=== PATIENT | male | born 1945 | race Caucasian/White ===

== ENCOUNTER 2024-03-16 16:53 | Inpatient (IN) | payer MEDICARE, SELFPAY ==
[2024-03-16] VITALS (35 sets, daily range): BP systolic 85–129; BP diastolic 34–92; BMI 31.9; BMI 31.0; BMI 31.1
[2024-03-16] MEDS: DUONEB 3 ML INH (12:25)
[2024-03-16 12:30] LABS: % Basophils 0.2 % (0-2); % Eosinophils 1.6 % (0-6); % Immature Granulocytes 0.6 % (0-0.5); % Lymphocytes 6.6 % (20.5-51.1); % Monocytes 5.7 % (1.7-9.3); % Neutrophils 85.3 % (42.2-75.2); Absolute Eosinophils 0.2 10^3/uL (0-0.7); Absolute Immature Granulocytes 0.1 10^3/uL (0-0.05); Absolute Lymphocytes 0.7 10^3/uL (1.2-3.4); Absolute Monocytes 0.6 10^3/uL (0.1-0.6); Absolute Neutrophils 9.5 10^3/uL (1.4-6.5); Hematocrit 41.7 % (39.0-52.0); Hemoglobin 12.6 g/dL (13.0-18.0); Mean Corp Hgb Conc. 30.2 g/dL (33.0-37.0); Mean Corpuscular Hgb 28.4 pg (27.0-31.0); Mean Corpuscular Volume 94.1 fL (80.0-94.0); Mean Platelet Volume 10.7 fL (7.4-10.4); Nucleated Red Blood Cells % 0 % (-); Platelet Count 215 10^3/uL (130-400); Red Blood Cell Count 4.43 10^6/uL (4.70-6.10); Red Cell Dist. Width 17.8 % (11.5-14.5); White Blood Cell Count 11.2 10^3/uL (4.8-10.8)
[2024-03-16 12:49] LABS: ALT (SGPT) 21 U/L (0-50); AST (SGOT) 26 U/L (17-59); Albumin 3.9 g/dl (3.5-5.0); Alkaline Phosphatase 153 U/L (38-126); Blood Urea Nitrogen 75 mg/dl (9-20); Calcium 8.6 mg/dl (8.4-10.2); Carbon Dioxide 17 mmol/L (22-30); Chloride 106 mmol/L (98-107); Estimated Creatinine Clearance 12 ml/min; Glucose 119 mg/dl (70-99); Potassium 5.4 mmol/L (3.5-5.1); Sodium 138 mmol/L (135-145); Total Bilirubin 1.3 mg/dl (0.2-1.3); Total Protein 7.2 g/dl (6.3-8.2)
[2024-03-16 12:56] LABS: COVID-19 Antigen Negative (Negative)
[2024-03-16] MEDS: VENTOLIN NEBULES 15 MG INH (13:04)
--- NOTE | 2024-03-16 13:22 | ED.GENMED ---
History of Present Illness
General
Chief Complaint: Change in Mental Status
Time Seen by Provider: 03/16/24 12:46
History of Present Illness
History of Present Illness:
Patient is a 78-year-old man with history of stage IV kidney cancer status post left nephrectomy, stage III prostate cancer, prior lung metastases that has been resolved currently not on chemotherapy followed by Todd Sims presenting to the emergency
department with altered mental status and shortness of breath. Patient's is an independent historian provides most of the history. She states that yesterday he had a fall. He did not hit his head or lose consciousness. Since then he has
been acting more confused. She states that he is intermittently confused. They also noticed that his heart rate was elevated to the 140s yesterday and resolved without any intervention. They called his primary care doctor who called back later
today telling him to come to the emergency department. She also notes that patient has been more short of breath with minimal activity. Patient does state that his shortness of breath has slightly improved after the nebulizer he initially
received. He denies any urinary changes chest pain Nausea vomiting or belly pain. He otherwise has no complaints though he is a poor historian.
Past History
Past History
ED Past Medical History: CAD, Cancer (Kidney ), CVA (X 3), HTN, Hypercholesterolemia, NIDDM, Hypothyroidism and Other ( BPH)
ED Past Surgical History: Cardiac (Stent) and Urological ( nephrectomy Left for cancer)
Social History
Tobacco: Former smoker
Alcohol: Occasional
Personal:
Living: with family
Family History
Family History: Negative Diabetes
Phy Exam
Physical Exam
Physical Exam:
GENERAL: in no acute distress
HEENT: normocephalic, no obvious head trauma, extraocular movements intact, moist oral mucosa
NECK: normal inspection
RESPIRATORY: Mild respiratory distress, diminished breath sounds bilaterally, expiratory wheezing
CARDIOVASCULAR: regular rate and rhythm
ABDOMEN/: soft, non-distended, non-tender to palpation, no rebound or guarding
EXTREMITIES: non-tender, 2+ pitting edema bilateral lower extremities
NEUROLOGIC: awake and alert oriented x 3, moves all extremities
SKIN: warm
Course
Orders/Labs/Results
Orders:
Orders
03/16/24 12:06
Electrocardiogram (*1) Urgent
Reason for Study: Shortness of Breath
03/16/24 12:07
EKG- Treatment ONCE
03/16/24 12:09
COVID-19 Antigen Urgent
Source: Nasal Swab
Complete Blood Count/With Diff Urgent
Comprehensive Metabolic Panel Urgent
Influenza A+B Rapid Molecular Urgent
RODRICK Source: Nasal Swab
Specimen Description:
03/16/24 12:22
Ipratropium/Albuterol Sulfate [Duoneb] 3 ml .ROUTE .STK-MED ONE
03/16/24 12:24
Ipratropium/Albuterol Sulfate [Duoneb] 3 ml INH R NOW ONE
03/16/24 12:58
Albuterol Sulfate [Ventolin Nebules] 15 mg INH R NOW STA
US Kidneys and US Bladder [US Renal With Bladder] Urgent
Comment:
Reason For Exam: acute renal failure
03/16/24 12:59
CT Head W/o Iv Contrast Urgent
Comment:
Reason For Exam: confusion
03/16/24 13:00
Add On- LAB Urgent
Tests Added?: trop, bnp
03/16/24 13:17
CT Chest W/o Iv Contrast Urgent
Comment:
Reason For Exam: hypoxia, r/o malignancy
NM Lung Scan Vent/perf Urgent
Comment:
Reason For Exam: r/o PE
03/16/24 13:27
CR Chest Portable - 1 View Urgent
Comment:
Reason For Exam: sob
Reason Study Needs to be Portable: Patient Unstable
03/16/24 13:57
NT-proBNP Routine
Troponin I Routine
03/16/24 14:57
Electrocardiogram (*1) Urgent
Reason for Study: Palpitations
EKG- Treatment ONCE
03/16/24 15:16
Urinalysis Reflex To Culture Urgent
Date Specimen was Collected: 03/16/24
Time Specimen was Collected: 15:18
03/16/24 17:00
Troponin I Routine
Abnormal Lab Results
03/16/24 03/16/24
12:09 13:57
WBC 11.2 H 10^3/uL
(4.8-10.8)
RBC 4.43 L 10^6/uL
(4.70-6.10)
Hgb 12.6 L g/dL
(13.0-18.0)
MCV 94.1 H fL
(80.0-94.0)
MCHC 30.2 L g/dL
(33.0-37.0)
RDW 17.8 H %
(11.5-14.5)
MPV 10.7 H fL
(7.4-10.4)
Abs Immat Gran (auto) 0.1 H 10^3/uL
(0-0.05)
Absolute Neuts (auto) 9.5 H 10^3/uL
(1.4-6.5)
Absolute Lymphs (auto) 0.7 L 10^3/uL
(1.2-3.4)
Immature Gran % 0.6 H %
(0-0.5)
Neutrophils % 85.3 H %
(42.2-75.2)
Lymphocytes % 6.6 L %
(20.5-51.1)
Potassium 5.4 H mmol/L
(3.5-5.1)
Carbon Dioxide 17 L mmol/L
(22-30)
BUN 75 H mg/dl
(9-20)
Creatinine 5.0 H* mg/dL
(0.7-1.3)
Glucose 119 H mg/dl
(70-99)
Alkaline Phosphatase 153 H U/L
(38-126)
Troponin I 2.060 H* ng/ml
03/16/24 12:09
03/16/24 12:09
Vital Signs
Initial and Last Documented VS:
Initial Vital Signs
Pulse Ox
93
03/16/24 11:58
Last Documented Vital Signs
Temp Pulse Resp BP Pulse Ox
97.5 F 73 22 120/72 97
03/16/24 12:18 03/16/24 12:45 03/16/24 12:45 03/16/24 12:00 03/16/24 12:45
MDM/Problems Addressed
Differential Diagnosis Includes:
Patient is a 78-year-old male with history of kidney cancer status post nephrectomy, prostate cancer, prior lung metastases who is currently not on chemotherapy presenting to the emergency department with confusion and shortness of breath. Vitals
are notable for oxygen of 90% requiring nasal cannula. His heart rate is in the 70s. During my evaluation patient is in mild respiratory distress with diminished breath sounds and wheezing in all lung singh. He does have 2+ pitting edema.
Concern for worsening malignancy versus PE versus new onset kidney failure. Will check blood work including troponin, BNP. Will obtain CT chest and head. EKG per my interpretation normal sinus rhythm with right bundle branch block.
*Critical Care Note
Total Time (30-74mins, 75-104mins- exclusive of procedures): 31
comment:
Critical care statement: A total of 31 minutes of critical care time was provided for this patient. This includes management of unstable vital signs, evaluation of the patient at bedside, reviewing the patient's pertinent medical records, ordering
and reviewing studies, arranging urgent treatment with development of a management plan, evaluating patient's response to treatment, frequent reassessment, and discussion with consultants. This time was separate from time utilized to perform the
aforementioned documented procedures.
Update Note
Update Note:
Received critical on patient's blood work. He is in acute renal failure with elevated BUN. The uremia could explain the altered mental status as well. Will obtain CT chest without contrast as well as a VQ scan to evaluate for malignancy and PE.
Will obtain renal ultrasound.
Patient's troponin and BNP is also elevated. Will obtain delta troponin. Likely type II elevation. EKG does appear nonischemic per my interpretation
Patient did have a run of A-fib with RVR with heart rates anywhere from the 130s to 150s. It did self resolve. He did have blood pressures in the 90s when he was in A-fib with RVR. On reevaluation patient remains slightly tachypneic. Breath
sounds have improved. Chest x-ray per my interpretation with significant right-sided pleural effusion. Will trial BiPAP shortly.
On reevaluation patient blood pressure has been improving since the episode of A-fib with RVR. I discussed with hospitalist who accepted patient to their service.
ED Attending Note
-
Portions of this chart may have been created with voice recognition software.� Occasional wrong word or��sound alike� substitutions may have occurred due to the inherent limitations of voice recognition software.
Discharge Plan
Departure
Patient Disposition: Admit
Date of Disposition: 03/16/24
Time of Disposition: 15:21
Presentation/result/management discussed w/ accepting MD/DO: Hospitalist
Discharge Problem:
Altered mental status, Pleural effusion, Atrial fibrillation
Prescriptions:
No Action
pioglitazone [Actos] 15 mg Tablet
15 mg PO DAILY
atorvastatin 40 mg Tablet
40 mg PO QPM
amlodipine 5 mg Tablet
5 mg PO DAILY
aspirin 81 mg Tablet,Delayed Release (Dr/Ec)
81 mg PO QPM
levothyroxine [Synthroid] 100 mcg Tablet
100 mcg PO DAILY
tamsulosin [Flomax] 0.4 mg Capsule
0.4 mg PO DAILY
lisinopril 40 mg Tablet
40 mg PO DAILY
calcitriol 0.25 mcg Capsule
0.25 mcg PO DAILY
cholecalciferol (vitamin D3) [Vitamin D3] 25 mcg (1,000 unit) Tablet
25 mcg PO DAILY
naproxen sodium [Aleve] 220 mg Tablet
440 mg PO BIDPRN PRN (Reason: mild pain)
metoprolol tartrate 50 mg Tablet
50 mg PO BID
finasteride 5 mg Tablet
5 mg PO DAILY
repaglinide 1 mg Tablet
2 mg PO TID
cholecalciferol (vitamin D3) [Vitamin D3] 25 mcg (1,000 unit) Tablet
50 mcg PO QPM
Referrals:
Maurisio Lizama DO [Family Provider] -
Interventions
Interventions:
*Risk Screen - Suicide Last Done: 03/16/24 11:59
*General Assessment Last Done: 03/16/24 11:59
*Neglect/Abuse Screening Last Done: 03/16/24 11:59
ED- Neurological Assessment Last Done: 03/16/24 12:49
ED Swallowing Screen Last Done: 03/16/24 14:27
Discharge Date and Time
Print Language: ALBANIAN
[2024-03-16 14:36] LABS: NT-proBNP > 27000 pg/ml
--- NOTE | 2024-03-16 16:08 | HPS.HSE ---
Addendum entered and electronically signed by Renetta Eisenberg MD 03/16/24 18:31:
I personally performed a history and physical exam of the patient and discussed management with the resident. I reviewed the resident's note and agree with the documented findings and plan of care HPI/CC except for changes in my documentation
See separate update note from same day
Original Note:
Family Physician
-
Family Physician: Maurisio Lizama, DO
Chief Complaint
-
Change in mental status
History of Present Illness
History obtained from patient and his .
78-year-old male with history of stage IV renal cancer s/p nephrectomy, stage III prostate cancer s/p radiation therapy, history of previous mets in the lung which reportedly resolved- followed by Todd Sims, 3 CVA currently not on anticoagulation
given history of recurrent falls, hypertension, hypercholesterolemia, diabetes type 2, hypothyroidism, BPH, CAD s/p cardiac stent presented with altered mental status and shortness of breath for 1 day. Patient's reports that he had a fall at
home yesterday, did not hit his head or lose consciousness however she believes he has been intermittently confused since the fall. She also reports that his heart rate was in 140s for short period of time yesterday but it resolved without any
intervention. She also notes that patient has been more short of breath with minimal activity. He denies any urinary changes, chest pain, Nausea, vomiting or abdominal pain. Denies any recent changes in medication.
Medical History
Past Medical History
Past Medical History: Reports CAD, Cancer (Stage IV renal, stage III prostate), CVA (X3), HTN, Hypothyroidism, NIDDM and Other (BPH)
Past Surgical History: Reports Cardiac (Stent) and Urological (Right nephrectomy)
Social History
Tobacco: Former Smoker
Alcohol: Occasional
Drug: None
Personal:
Living: With Family
Family History
Family History: Not pertinent
Allergies / Home Medications
Allergies reflects when Allergies were last updated in [facility].
Home Medications with original date entered in [facility]
Allergy/Medication List:
Allergies
Allergy/AdvReac Type Severity Reaction Status Date / Time
No Known Allergies Allergy Verified 04/10/23 00:02
Home Medications
amlodipine 5 mg tablet 5 mg PO DAILY 04/10/23
aspirin 81 mg tablet,delayed release 81 mg PO QPM 04/10/23
atorvastatin 40 mg tablet 40 mg PO QPM 04/10/23
calcitriol 0.25 mcg capsule 0.25 mcg PO DAILY 04/10/23
cholecalciferol (vitamin D3) 25 mcg (1,000 unit) tablet (Vitamin D3) 25 mcg PO DAILY 04/10/23
levothyroxine 100 mcg tablet (Synthroid) 100 mcg PO DAILY 04/10/23
lisinopril 40 mg tablet 40 mg PO DAILY 04/10/23
pioglitazone 15 mg tablet (Actos) 15 mg PO DAILY 04/10/23
tamsulosin 0.4 mg capsule (Flomax) 0.4 mg PO DAILY 04/10/23
cholecalciferol (vitamin D3) 25 mcg (1,000 unit) tablet (Vitamin D3) 50 mcg PO QPM 03/16/24
finasteride 5 mg tablet 5 mg PO DAILY 03/16/24
metoprolol tartrate 50 mg tablet 50 mg PO BID 03/16/24
naproxen sodium 220 mg tablet (Aleve) 440 mg PO BIDPRN PRN mild pain 03/16/24
repaglinide 1 mg tablet 2 mg PO TID 03/16/24
Review of Systems
-
History Source: Patient and Family
Constitutional: Reports Weight Gain; Denies Fever
Respiratory: Reports Cough and Trouble Breathing
Cardiac: Denies Chest Pain
: Denies Dysuria
Neurological: Reports Weakness (Chronic Left sided s/p cva); Denies Headache
Psych: Reports Calm
Physical Exam
Vital Signs
Vital Signs
Temp Pulse Resp BP Pulse Ox
97.5 F 73 22 120/72 97
03/16/24 12:18 03/16/24 12:45 03/16/24 12:45 03/16/24 12:00 03/16/24 12:45
Physical Exam
General: Well Developed, No Apparent Distress and Obese
HEENT: NormoCephalic
Respiratory: Decreased Breath Sounds
Cardiac: Tachycardia
GI: Soft, Non Tender and Non Distended
Skin: Warm and Dry
Neuro: Awake and Alert
Psych: Calm
Laboratory Results
-
03/16/24 12:09
03/16/24 12:09
Laboratory Results
Total Bilirubin 1.3 mg/dl (0.2-1.3) 03/16/24 12:09
AST 26 U/L (17-59) 03/16/24 12:09
ALT 21 U/L (0-50) 03/16/24 12:09
Alkaline Phosphatase 153 U/L (38-126) H 03/16/24 12:09
Troponin I 2.060 ng/ml H* 03/16/24 13:57
Data Reviewed
-
Diagnostic Radiology: Report Reviewed by me
CT Scan: Report Reviewed by me
Lab Data: Labs Reviewed by me, Discussed with Physician, Discussed with Patient and Discussed with Family
Impression/Plan
-
78-year-old male with history of stage IV renal cancer s/p right nephrectomy, stage III prostate cancer s/p radiation therapy, history of previous mets in the lung which reportedly resolved- followed by Todd Sims, 3 CVA currently not on
anticoagulation given history of recurrent falls, hypertension, hypercholesterolemia, diabetes type 2, hypothyroidism, BPH, CAD s/p cardiac stent presented with altered mental status and shortness of breath.
#Altered mental status
# DESTINEE on CKD stage IV with hyperkalemia
CT head: IMPRESSION:
No acute intracranial abnormalities.
Old lacunar infarct again suggested in the right internal capsule.
-Creatinine 5.0 (reviewed lab work from January 2024 on the phone creatinine 2.98)
-Nephro consulted(per patient was informed by outpatient cook fish and chips he might need dialysis)
- Volume overloaded on exam
-VQ scan
-1 dose of Iv lasix 80mg.
#SOB
-CtT chest:
IMPRESSION:
Moderate right pleural effusion with right lower lobe 'consolidation' with air bronchograms. Findings could represent atelectasis and/or pneumonia. Right lower lobe mass cannot be excluded.
Small left pleural effusion with accompanying left lower lobe subsegmental atelectasis.
Coronary artery calcifications.
No pneumothorax.
- IR for pleural tap
- fluid studeis ordered
# HFrEF
Trops elevated
# a fib
-denies chest pain
-proBNP >15926
-Cardio consulted
-Echo ordered
- refused heparin drip; will wait for 2nd set of trops
- daily weight
# Essential hypertension
-Continue amlodipine 5 mg
-Continue metoprolol
-Hold lisinopril
# History of CVA
-Continue ASA
# Esd-ppolcyr-nemvgpcma diabetes mellitus
-Continue home repaglinide
-Continue home pioglitazone
# BPH
-Continue home tamsulosin
-Continue home finasteride
#Chronic anemia
#Stage IV right renal cancer-s/p nephrectomy
#Stage III prostate cancer-status post radiation therapy
#Hypercholesterolemia-continue atorvastatin
#Hypothyroidism-continue levothyroxine
DVT proph:SCD
code: DNR
--- NOTE | 2024-03-16 16:28 | W.PN.UPDATE ---
Update Note
Progress Note Update
I personally performed a history and physical exam of the patient and discussed management with the resident. I reviewed the resident's note and agree with the documented findings and plan of care HPI/CC except for changes in my documentation
78-year-old with mental status change. Intermittently confused heart rate was elevated yesterday called PCP who asked him to go to the hospital. Patient also had a fall out of bed stated that he landed on the right shoulder area did not hit his
head. He denies any chest pain or shortness of breath. also noted that his heart rate was high at home. He follows with a etl tester who retired. He was told that in the past that he needs dialysis but patient has been postponing it until
now.
CT of the chest without contrast-moderate right pleural effusion with consolidation of the right lower lobe with air bronchograms atelectasis/pneumonia. Mass cannot be excluded. Small left effusion. Coronary artery calcification
CT of the head-old lacunar infarct in the right internal capsule
VQ scan-low probability for PE
EKG reviewed by me-sinus rhythm with PACs. Left axis deviation. Right bundle branch block.
Awake alert oriented
Cardiovascular system S1-S2 tachycardic irregular
Chest decreased breath sounds bilateral bases right more than left
Abdomen midline scar transfers-noted
Nontender normal valve sounds
Bilateral pedal edema
Left [place]عر[place] with abrasion patient attributes to recent fall
Neuro exam mildly weaker left side-chronic
# Acute hypoxic respiratory insufficiency
Likely secondary to heart failure, pleural effusion.
VQ scan negative for PE
Pleural arisnwlr-yatjs-gtsuk
Likely has acute HFrEF-proBNP 27,000
Echo not the best quality with tachycardia EF 35%
Lasix 80 mg IV x 1 now and follow creatinine tomorrow
Follow daily weights intake output charting with following
# TME likely secondary to above. Patient seems stable at present awake alert and oriented.
# Elevated troponin-trend. Non-STEMI versus nonischemic myocardial injury. Trend troponin. I recommended to start heparin drip however reluctant as he has a history of hemorrhagic CVA in the past but that was all associated with biological
agent for his renal cell carcinoma.
# Tachycardia-atrial fibrillation versus sinus tachycardia versus SVT rates up, too fast. 1 dose of IV Cardizem
Continue metoprolol 50 twice daily
# Acute kidney injury with a creatinine of 5.0-unclear if cardiorenal versus progression of the disease. Hyperkalemia and metabolic acidosis
Stage IV CKD
Acute kidney injury could be secondary to cardiorenal state, use of NSAIDs. In the setting of CYNDY inhibitors also.
Hyperkalemia. Follow potassium with Lasix
Check urinalysis and urine sodium.
Heard catheter placement
Follow creatinine with 1 dose of Lasix
Last creatinine at [facility] was from June 2022 it was 2.34
Stop Aleve
Hold lisinopril
Continue calcitriol
Nephrology evaluation
# Right pleural effusion. Thoracentesis with fluid studies and cytology to rule out malignant pleural effusion given history of metastatic renal cell carcinoma
# Coronary artery disease with coronary artery calcification
Kavitha Navas Malinda -Last seen 02/29/24
CAD Lext Cx stent 2019 Severe diffuse LAD ds not amenable to RV
Asymptomatic BF Block
History of non-STEMI followed by nephrectomy
ECHO 2019- EF was 60 %.
Cath 2019 - ?
Continue aspirin, statin and beta-tristian. Hold lisinopril as above
# History of NSVT
# History of CVA-hemorrhagic strokes while on biologic agents for renal cell carcinoma treated at [facility].
# Hypertension-continue beta-blockers. Hold amlodipine and lisinopril
# Hyperlipidemia-continue atorvastatin
# Diabetes-hold Actos. Continue Prandin for now. Accu-Cheks and sliding scale coverage
# Hypothyroidism-continue Synthroid
# He has a H/O Met RCC diagnosed in 2012. Underwent right nephrectomy, adrenalectomy and liver resection November 2012. He was on Votrient 800 mg from dec 2012 to September 2013 Was stopped due to Acute hemorrhagic CVA.Then he was on Everolimus for
hepatic mets, Then Nivolumab in September 2014 stopped 2016 due to disease progression. Tasocitinib from September 2015 to September 2016. September had another hemorrhagic CVA. He also then got radiation to the liver metastasis in April 2017 till May 2017. He
also had more radiation in September 2017. Now being observed. Follows with Dr. Schwartz
# Stage II adenocarcinoma of the prostate with radiation September 2022 and 6 months of androgen deprivation therapy with Lupron which ended in October 2022. Continue finasteride, Flomax, Follows with Dr. Schwartz
# Ambulatory dysfunction-uses a walker and electric scooter outside the home
# Ex-smoker
# CODE STATUS addressed with patient and . deferred to patient. He wants to be DNR.
Spoke to [facility] Rubi Yee - [phone]. Got information about malignancy. Updated on patient's current condition.
Discussed with cardiology
Discussed with simulation technician
Discussed with patient's
Unfortunately all his treatments were at [facility] including a stroke treatment. Unclear where his etl tester was. His medical lab director is from [facility]. His oncologist is from [facility]. I reviewed with the patient's that it
is difficult to get all the information together at this point. She will try and bring her iPad and log into the portal tomorrow. I did talk to the fellow on-call at [facility] to get some information.
Time spent for admission 80 minutes
Part of this note was created using voice recognition system. Occasional wrong word or��sound alike� substitutions may have inadvertently occurred due to the inherent limitations of voice recognition software. If noted kindly bring it to my
attention for correction.
--- NOTE | 2024-03-16 16:49 | W.PN.UPDATE ---
Update Note
Progress Note Update
Patient not present in the ER room since 3:45 PM, when I checked back at 4:15 PM patient was not back, patient still not back last checked at 4:45 PM.
--- NOTE | 2024-03-16 17:04 | CON.CAR ---
Addendum entered and electronically signed by Rustam Mace MD 03/16/24 18:50:
78 yo male with PMH of CAD, prior Lcx stent, unable to PCI LAD, unknown EF, RCC s/p nephrectomy, CKD4. Presented to ED with altered mental status, brought in by . No chest pain. Denies SOB, but visibly appears to have increased WOB. Exam
with RRR, no murmurs, 2+ LE edema. Cr 5.0, K 5.4, TnI 2.0. EKG : no acute ischemic changes. Tele shows paroxysmal SVT, may be A flutter. Echo shows EF 30%, mild/mod MR and TR.
Acute systolic HF. High risk situation with acute renal failure. Will attempt diuresis. He may need HD/UF this admission. GDMT will be limited by renal function. Change metoprolol to succinate.
Paroxysmal SVT, with aberrancy. May be atrial flutter. Trend tele. Beta tristian. Heparin drip for now.
Elevated troponin. Suspect Type II OH in setting of atrial arrhythmias and known unrevascularized LAD. Trend troponin. Monitor for CP.
Original Note:
Consultation
Consultation Request
Date/Time Consultation Requested: 03/16/2024 16:30
Date/Time Consultation Performed: 03/16/2024 17:05
Requesting Provider: Dr. Cali Redding
Performing Provider: JUAN Gonzalez for Dr. Carcamo
Reason for Consultation: Abnormal troponin
Medical History
-
Chief Complaint: Change in mental status
History of Present Illness:
Gerson Forbes is a 78-year-old male (known to Dr. Petty at [facility]) with coronary artery disease (LCx PCI with LAD disease unamenable to PCI), hypertension, dyslipidemia, RCC status post nephrectomy, chronic kidney disease, prostate
cancer, multiple hemorrhagic strokes (attributed to chemotherapy while being treated for RCC), hypothyroidism, and former smoker presented to the emergency department with a chief complaint of change in mental status. He also endorses shortness of
breath. Per his , he sustained a fall yesterday. He did not hit his head or lose consciousness. However, since the fall he has been more confused. He does not feel confused. His reported he looked more short of breath. He denies
shortness of breath on exam. He denies chest pain.
Past Medical History
Past Medical History: CAD, Cancer (RCC, prostate), CVA, HTN, Hypercholesterolemia, Hypothyroidism, NIDDM and Renal Failure (Chronic)
Past Surgical History: Urological (Nephrectomy)
Social History
Tobacco: Former Smoker
Personal:
Living: With Family
Employment: Retired
Family History
Family History: Reviewed & Not Pertinent
Allergies / Home Medications
Allergy/AdvReac Type Severity Reaction Status Date / Time
No Known Allergies Allergy Verified 04/10/23 00:02
�Medication �Instructions �Recorded �Confirmed �Type
amlodipine 5 mg tablet 5 mg PO DAILY 04/10/23 03/16/24 History
aspirin 81 mg tablet,delayed 81 mg PO QPM 04/10/23 03/16/24 History
release
atorvastatin 40 mg tablet 40 mg PO QPM 04/10/23 03/16/24 History
calcitriol 0.25 mcg capsule 0.25 mcg PO DAILY 04/10/23 03/16/24 History
cholecalciferol (vitamin D3) 25 25 mcg PO DAILY 04/10/23 03/16/24 History
mcg (1,000 unit) tablet (Vitamin
D3)
levothyroxine 100 mcg tablet 100 mcg PO DAILY 04/10/23 03/16/24 History
(Synthroid)
lisinopril 40 mg tablet 40 mg PO DAILY 04/10/23 03/16/24 History
pioglitazone 15 mg tablet (Actos) 15 mg PO DAILY 04/10/23 03/16/24 History
tamsulosin 0.4 mg capsule (Flomax) 0.4 mg PO DAILY 04/10/23 03/16/24 History
cholecalciferol (vitamin D3) 25 50 mcg PO QPM 03/16/24 03/16/24 History
mcg (1,000 unit) tablet (Vitamin
D3)
finasteride 5 mg tablet 5 mg PO DAILY 03/16/24 03/16/24 History
metoprolol tartrate 50 mg tablet 50 mg PO BID 03/16/24 03/16/24 History
naproxen sodium 220 mg tablet 440 mg PO BIDPRN PRN mild pain 03/16/24 03/16/24 History
(Aleve)
repaglinide 1 mg tablet 2 mg PO TID 03/16/24 03/16/24 History
Review of Systems
-
History Source: Patient
All other systems: Negative unless noted
Constitutional: No Symptoms
EENT: No Symptoms
Respiratory: No Symptoms
Cardiac: No Symptoms
Abdomen/GI: No Symptoms
: No Symptoms
Musculoskeletal: No Symptoms
Skin: No Symptoms
Neurological: No Symptoms
Endocrine: No Symptoms
Hematologic/Lymphatic: No Symptoms
Physical Exam
Vital Signs
Temp Pulse Resp BP Pulse Ox
97.5 F 73 22 120/72 97
03/16/24 12:18 03/16/24 12:45 03/16/24 12:45 03/16/24 12:00 03/16/24 12:45
Lab Results
03/16/24 12:09
03/16/24 12:09
Troponin I 2.060 ng/ml H* 03/16/24 13:57
Qfs-B-Moecnsmbvqc Pept > 56288 pg/ml 03/16/24 13:57
Physical Exam
General: Well Developed
HEENT: Normocephalic, Anicteric and Moist Mucous Membranes
Respiratory: Crackles and Non Labored Respirations
Cardiac: S1/S2, Regular Rhythm and Peripheral Edema
Breast: Deferred by me
GI: Soft, Non Tender, Non Distended and Normal Bowel Sounds
Rectal: Deferred by Provider
Musculoskeletal: No Clubbing and No Cyanosis
Skin: Warm and Dry
Neuro: AO x 3
Hematologic/Lymphatic: No Lymphadenopathy
Psych: Calm
Impression / Plan
-
IMPRESSION/PLAN: 78M with coronary artery disease (LCx PCI with LAD disease unamenable to PCI), hypertension, dyslipidemia, RCC status post nephrectomy, chronic kidney disease, prostate cancer, multiple hemorrhagic strokes (attributed to
chemotherapy while being treated for RCC), hypothyroidism, and former smoker presented to the emergency department with a chief complaint of a fall.
Outpatient sales representative business courses: Dr. Petty at
Shortness of breath, likely in the setting of acute heart failure
-Volume overloaded on exam
-V/Q: Low probability
-Lower extremity ultrasound pending
HFrEF (EF ~35%, formal read pending), acute
-Outpatient cardiology notes does not have any documented recent LVEF
-Diuresis, start with furosemide 80 mg IV x 1 now, this requires intensive monitoring
-He may need either a furosemide or bumetanide drip, this will be under the direction of nephrology given his DESTINEE
-GDMT is limited with his DESTINEE
-Trend daily weight, I/O, and BMP with diuresis
-Heart failure education
Abnormal troponin, likely Type II OH
-Chest pain-free
-Initial troponin 2.060, trend
-Start heparin, continue ASA
SVT with aberrancy
-Follow telemetry
-Transition to metoprolol succinate 50 mg twice daily given HFrEF
CAD
-PCIs: LCx 2018 with severe diffuse LAD disease not amenable to revascularization
-He had an NSTEMI, type II OH, following his radical nephrectomy
-Continue ASA
DESTINEE on CKD
-Per outpatient biochemist, baseline creatinine about 3, currently 5.0
-Follows with Dr. Naa Castillo
-Nephrology consulted by primary service
RBBB, LAFB, chronic
NSVT, per outpatient cardiology note, follow telemetry
HLD, on atorvastatin
RCC status post nephrectomy (right) with metastasis to right adrenal, left adrenal, and right lung - managed by [facility]
Prostate cancer status post XRT
CVA, hemorrhagic, possibly related to Pazopanib during chemotherapy (2013)
NIDDM with retinopathy and proteinuria, diabetes managed by Dr. Camacho
Hypothyroidism on levothyroxine
Former smoker, continue cessation recommended
Data Reviewed
-
EKG: Report Reviewed by me (Sinus rhythm, RBBB, rate 69)
Labs: Labs Reviewed by me
Old Records: Reviewed
[2024-03-16] MEDS: CARDIZEM 5 MG IV (18:05)
[2024-03-16] MEDS: LASIX 80 MG IV (18:06)
[2024-03-16] MEDS: LOPRESSOR 2.5 MG IV ×2 (18:45→21:32)
[2024-03-16 21:30] LABS: Glucose - Point of Care 146 mg/dl (70-99)
[2024-03-16] MEDS: LOPRESSOR 50 MG PO (21:39)
[2024-03-16] MEDS: ASPIR LOW (ENTERIC COATED) 81 MG PO (21:39)
[2024-03-16] MEDS: LIPITOR 40 MG PO (21:39)
[2024-03-16 22:10] LABS: LDH 303 U/L (120-246)
[2024-03-16] MEDS: ATIVAN 0.25 MG IV (23:13)
[2024-03-16] MEDS: NSS (PRESERVATIVE FREE) 0.125 ML IV (23:19)
--- NOTE | 2024-03-16 23:22 | PTCARENOTE ---
Addendum entered by Radha Jeong RN 03/17/24 00:46:
admission questions completed to pt's best ability, as pt. is AOx2 to self and place at the moment, not time
Original Note:
Pt. received from ED. Pt. AOx2, to self and place. When asked what year it is he said '1924'. Pt. arriving on tele showing sinus tachycardia in the 130s. Pt. asymptomatic. BP low 80s-100/50s-60s. No complaints of pain at this time. This RN and
another RN attempted to place indwelling fraser per order, however pt. became agitated and aggressive towards staff. Attempt to place fraser was stopped, I reached out to House Provider CUSTOM VAN CONVERTER, ativan order placed by CUSTOM VAN CONVERTER. Ativan given to pt., 2nd attempt
on fraser placement post ativan administration. Call garcia within reach, bed alarm on. Continuing to monitor at this time.
--- NOTE | 2024-03-16 23:55 | PTCARENOTE ---
16fr indwelling fraser placed
[2024-03-17] VITALS (59 sets, daily range): BP systolic 77–134; BP diastolic 36–117
[2024-03-17 00:01] LABS: Urine Albumin 2+ (Neg - Trace); Urine Bilirubin Negative (Negative); Urine Character Slightly Cloudy (Clear); Urine Color Yellow; Urine Glucose Trace (Negative); Urine Ketone Negative (Negative); Urine Leukocyte Negative (Negative); Urine Nitrite Negative (Negative); Urine Occult Blood Negative (Negative); Urine Specific Gravity 1.025 (<1.030); Urine Urobilinogen Negative (Neg - 1+)
[2024-03-17 00:30] LABS: Urine Amorphous Seen; Urine Bacteria Many (Negative)
[2024-03-17 00:32] LABS: Urine Granular Cast 0-2 /LPF (0); Urine Mucus Moderate
[2024-03-17 00:43] LABS: Urine Sodium 29 mmol/L (30-90)
[2024-03-17] MEDS: LOPRESSOR 2.5 MG IV (01:06)
--- NOTE | 2024-03-17 03:42 | PTCARENOTE ---
Pt. HR sustaining in the 120s. 2.5mg lopressor given x2, per order. SBP dropping to 80s-90s after administration. House PAINT COATING MACHINE OPERATOR made aware, awaiting orders. Continuing to monitor at this time.
[2024-03-17 04:33] LABS: % Basophils 0.2 % (0-2); % Eosinophils 0.9 % (0-6); % Immature Granulocytes 0.4 % (0-0.5); % Lymphocytes 5.6 % (20.5-51.1); % Monocytes 5.2 % (1.7-9.3); % Neutrophils 87.7 % (42.2-75.2); Absolute Eosinophils 0.1 10^3/uL (0-0.7); Absolute Lymphocytes 0.6 10^3/uL (1.2-3.4); Absolute Monocytes 0.5 10^3/uL (0.1-0.6); Absolute Neutrophils 8.5 10^3/uL (1.4-6.5); Hematocrit 37.7 % (39.0-52.0); Hemoglobin 12.1 g/dL (13.0-18.0); Mean Corp Hgb Conc. 32.1 g/dL (33.0-37.0); Mean Corpuscular Hgb 28.9 pg (27.0-31.0); Nucleated Red Blood Cells % 0 % (-); Platelet Count 214 10^3/uL (130-400); Red Blood Cell Count 4.19 10^6/uL (4.70-6.10); Red Cell Dist. Width 17.6 % (11.5-14.5); White Blood Cell Count 9.7 10^3/uL (4.8-10.8)
[2024-03-17 04:56] LABS: ALT (SGPT) 20 U/L (0-50); AST (SGOT) 27 U/L (17-59); Albumin 3.4 g/dl (3.5-5.0); Alkaline Phosphatase 140 U/L (38-126); Blood Urea Nitrogen 81 mg/dl (9-20); Calcium 8.3 mg/dl (8.4-10.2); Carbon Dioxide 17 mmol/L (22-30); Chloride 106 mmol/L (98-107); Estimated Creatinine Clearance 12 ml/min; Glucose 121 mg/dl (70-99); Magnesium 2.6 mg/dl (1.6-2.3); Potassium 5.2 mmol/L (3.5-5.1); Sodium 138 mmol/L (135-145); Total Bilirubin 1.2 mg/dl (0.2-1.3); Total Protein 6.4 g/dl (6.3-8.2); eGFR 10.59
[2024-03-17] MEDS: SYNTHROID 100 MCG PO (05:54)
--- NOTE | 2024-03-17 07:39 | W.PN.HOSP.TC ---
Today's Communication/Plan
-
heparin drip
cardizem by cardio
lokelma
zosyn
Assessment / Plan
Assessment / Plan
78-year-old male with history of stage IV renal cancer s/p right nephrectomy, stage III prostate cancer s/p radiation therapy, history of previous mets in the lung which reportedly resolved- followed by [facility], 3 CVA currently not on
anticoagulation given history of recurrent falls, hypertension, hypercholesterolemia, diabetes type 2, hypothyroidism, BPH, CAD s/p cardiac stent presented with altered mental status and shortness of breath.
# DESTINEE on CKD stage IV with hyperkalemia and metabolic acidosis
CT head:No acute intracranial abnormalities,Old lacunar infarct again suggested in the right internal capsule.
-Creatinine 5.2 today (reviewed lab work from January 2024 on the phone creatinine 2.98)
-Nephro consulted(per patient was informed by outpatient automotive assembler he might need dialysis)
-Volume overloaded on exam
-VQ scan:-low probability for PE
-1 dose of Iv lasix 80mg on 03/16/24
-fraser placement
-hold aleve and lisinopril
-given more confusion today;repeat head ct- unremarkable
-1 dose of lokelma
# Acute hypoxic respiratory insufficiency, #SOB
Likely secondary to heart failure, pleural effusion.
-CT chest:Moderate right pleural effusion with right lower lobe 'consolidation' with air bronchograms. Findings could represent atelectasis and/or pneumonia. Right lower lobe mass cannot be excluded.
Small left pleural effusion with accompanying left lower lobe subsegmental atelectasis.
Coronary artery calcifications,No pneumothorax.
- IR for pleural tap
- fluid studies ordered; cytology to rule out malignant pleural effusion;history of metastatic RCC
repeat cxr: Opacification in the right mid to lower lung, possibly slightly increased with known right lower lobe consolidation and moderate right pleural effusion seen on Chest CT of preceding day.
Opacification in the left lung base without significant change likely correlating with small left pleural effusion with left lower lobe subsegmental atelectasis seen on CT.
# TME likely secondary to above
#Altered mental status
-consulted neuro
-started zosyn
-wrist restraints; anti psychotic not recommended with prolong qtc
# HFrEF
# a fib
#tachycardia
-denies chest pain
-proBNP >96172
- daily weight
-cardizem drip
#type 2 MD
trop elevated
continue asa, hold metoprolol
heparin drip started tp
# CAD
-s/p cardiac stenting
-continue asa, atorvastatin and metoprolol
# Essential hypertension
-hold amlodipine 5 mg
-Continue metoprolol
-Hold lisinopril
# History of CVA; while on biologic for RCC
-Continue ASA
# Asa-xicpzdf-ceqcbbtcf diabetes mellitus
-Continue home repaglinide(lower dose 1mg)
-hold home pioglitazone
-ssc
# BPH
-Continue home tamsulosin
-Continue home finasteride
#Chronic anemia
#Stage IV right renal cancer-s/p nephrectomy
#Stage III prostate cancer-status post radiation therapy
#Hypercholesterolemia-continue atorvastatin
#Hypothyroidism-continue levothyroxine
# Ambulatory dysfunction-uses a walker and electric scooter outside the home
DVT proph:SCD
code: DNR
Anticipated Discharge: > 48 hours
Subjective/Interval History
-
Date of Service: March 17, 2024
Confused
Objective Data
-
Labs:
Laboratory Results
03/17/24
04:14
WBC 9.7
Hgb 12.1 L
Hct 37.7 L
Plt Count 214
Sodium 138
Potassium 5.2 H
Chloride 106
Carbon Dioxide 17 L
BUN 81 H
Creatinine 5.2 H*
Glucose 121 H
Calcium 8.3 L
Total Bilirubin 1.2
AST 27
ALT 20
Alkaline Phosphatase 140 H
Vital Signs:
Vital Signs
Temp Pulse Resp BP Pulse Ox
98.7 F 130 25 88/59 99
03/16/24 22:57 03/17/24 06:31 03/16/24 21:00 03/17/24 06:31 03/16/24 22:57
I&O
03/16/24 03/17/24 03/18/24
06:59 06:59 06:59
Intake Total 100 / 100
Balance 100 / 100
Review of Systems
-
History Source: Patient (confused, denies any pain)
Physical Exam
-
General: Well Developed, Appears Chronically Ill and Obese
Respiratory: Wheezes and Decreased Breath Sounds
Cardiac: S1/S2 and Tachycardic
GI: Soft and Nontender
Skin: Warm and Dry
Neuro: Awake
Psych: Confused
Data Reviewed
-
CT Scan: Report Reviewed by me
Labs: Labs Reviewed by me, Discussed with Physician and Discussed with Patient
[2024-03-17] MEDS: ROCALTROL 0.25 MCG PO (07:55)
[2024-03-17] MEDS: FLOMAX 0.4 MG PO (07:55)
[2024-03-17] MEDS: PROSCAR 5 MG PO (07:55)
[2024-03-17] MEDS: VITAMIN D3 (cholecalciferol) 25 MCG PO (07:55)
[2024-03-17] MEDS: PRANDIN 1 MG PO (07:55)
[2024-03-17 07:56] LABS: Glucose - Point of Care 106 mg/dl (70-99)
--- NOTE | 2024-03-17 08:43 | W.PN.CD ---
Today's Communication / Plan
-
- Stop Metoprolol and start IV diltiazem
- High risk for thromboembolic events with AF/AFL and severe systolic dysfunction - start heparin
Impression / Plan
-
IMPRESSION/PLAN: 78M with coronary artery disease (LCx PCI with LAD disease unamenable to PCI), hypertension, dyslipidemia, RCC status post nephrectomy, chronic kidney disease, prostate cancer, multiple hemorrhagic strokes (attributed to
chemotherapy while being treated for RCC), hypothyroidism, and former smoker presented to the emergency department with a chief complaint of a fall.
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 Petty at
Altered mental status
- Noted to have right sided neglect and no movement on the right arm with normal response and movement on the left side - transient and resolved in few minutes while still in the room.
- Transient focal deficit - recovered back to baseline.
- Hx of strokes in the past. Discussed with his - has a hx of hemorrhagic strokes in
- Now head CT showed no bleeding
- In atrial flutter with RVR. Needs anticoagulation with high suspicion for AF. Discussed with and is in agreement to start Heparin.
Atrial flutter
- RVR since admission - 130s to 140s bpm
- IV metoprolol ineffective and caused hypotension
- Stop PO metoprolol and start IV diltiazem drip
- Given severe renal failure, not a candidate for Digoxin unless really needed - ok for a single dose - very long half life with renal failure .
Shortness of breath, likely in the setting of acute heart failure
-Volume overloaded on exam
-V/Q: Low probability
-Lower extremity ultrasound pending
HFrEF (EF 30%), acute
- ECHO 03/16/24 - LVEF 25-30%
- Could be related to sustained tachcyardia.
-Outpatient cardiology notes does not have any documented recent LVEF
-Diuresis, start with furosemide 80 mg IV x 1 now, this requires intensive monitoring
-He may need either a furosemide or bumetanide drip, this will be under the direction of nephrology given his DESTINEE
-GDMT is limited with his DESTINEE
-Trend daily weight, I/O, and BMP with diuresis
-Heart failure education
Abnormal troponin, likely Type II NH
-Chest pain-free
-Initial troponin 2.060, trend
-Start heparin, continue ASA
CAD
-PCIs: LCx 2018 with severe diffuse LAD disease not amenable to revascularization
-He had an NSTEMI, type II NH, following his radical nephrectomy
-Continue ASA
DESTINEE on CKD
-Per outpatient reed polisher, baseline creatinine about 3, currently 5.0
-Follows with Dr. Naa Castillo
-Nephrology consulted by primary service
RBBB, LAFB, chronic
NSVT, per outpatient cardiology note, follow telemetry
HLD, on atorvastatin
RCC status post nephrectomy (right) with metastasis to right adrenal, left adrenal, and right lung - managed by [facility]
Prostate cancer status post XRT
CVA, hemorrhagic, possibly related to Pazopanib during chemotherapy (2013)
NIDDM with retinopathy and proteinuria, diabetes managed by Dr. Camacho
Hypothyroidism on levothyroxine
Former smoker, continue cessation recommended
Physical Exam
Vital Signs/Labs
Vital Signs
Temp Pulse Resp BP Pulse Ox
97.9 F 131 20 89/77 97
03/17/24 07:00 03/17/24 07:00 03/17/24 07:00 03/17/24 07:30 03/17/24 07:00
03/16/24 03/17/24 03/18/24
06:59 06:59 06:59
Actual Weight 84.7 kg
03/17/24 04:14
APTT Cancelled 03/16/24 17:41
Magnesium 2.6 mg/dl (1.6-2.3) H 03/17/24 04:14
03/16/24
13:57
Xba-I-Bzlwfdjbkfl Pept > 30541
LAB Results
03/16/24 03/16/24 03/17/24
13:57 18:12 04:14
Troponin I 2.060 H* 2.830 H* D 4.730 H*
Physical Exam
Constitutional: Confusion
EENT: Anicteric
Cardiovascular: Rhythm & rate is regular, JVD present and Systolic murmur present
Respiratory: Respiratory effort normal and Crackles Present
GI: Soft, Non tender and Normal bowel sounds
Neuro/Psych: Alert and Other (fluctuating mental status)
Data Reviewed
-
Date of Service: March 17, 2024
Medical Decision Making: Reviewed Test Results
EKG: Tracing Personally Visualized and interpreted
Echo: Tracing Personally Visualized and interpreted
X-Ray/CT/US/MRI/NUC/PET: Report Reviewed by me
Medical Tests (PFT, Pathology etc): Discussed with Physician, Discussed with Patient and Discussed with Family
Labs: Labs Reviewed by me
Old Records: Reviewed
Critical Care Time (in minutes): 35
[2024-03-17] MEDS: LOPRESSOR PO (09:08)
[2024-03-17] MEDS: CARDIZEM 125 IV ×2 (09:10→19:02)
--- NOTE | 2024-03-17 09:21 | W.PN.UPDATE ---
Update Note
Progress Note Update
I personally performed a history and physical exam of the patient and discussed management with the resident. I saw and evaluated the patient. I reviewed the resident�s note and agree with findings and plan as documented in the resident�s note.
78-year-old with mental status change. Intermittently confused heart rate was elevated yesterday called PCP who asked him to go to the hospital. Patient also had a fall out of bed stated that he landed on the right shoulder area did not hit his
head. He denies any chest pain or shortness of breath. also noted that his heart rate was high at home. He follows with a dough mixing machine operator who retired. He was told that in the past that he needs dialysis but patient has been postponing it until
now.
CT of the chest without contrast-moderate right pleural effusion with consolidation of the right lower lobe with air bronchograms atelectasis/pneumonia. Mass cannot be excluded. Small left effusion. Coronary artery calcification
CT of the head-old lacunar infarct in the right internal capsule
VQ scan-low probability for PE
EKG reviewed by me-sinus rhythm with PACs. Left axis deviation. Right bundle branch block.
Echo 03/16/2024-moderately reduced LV systolic function. EF 30%. Global hypokinesis. Mild to moderate MR. Mild to moderate TR.
Seen and examined the patient .
Appears to have mild right-sided neglect.
Cardiovascular system S1-S2 tachycardic , sm at apex
decreased breath sound right base
Abdomen soft and nontender
Mild pedal edema
Rpt CT of the head-without contrast no acute changes
# Mild intermittent right-sided neglect. Patient is able to move but not clearly following directions
Then he picked up his Left arm with the right arm.
Unclear if this is encephalopathy causing worsening of his prior stroke symptoms
Neurology evaluation requested
Add neuro checks
# A-fib/flutter with 2-1 block
IV metoprolol is not effective
Metoprolol stopped and Cardizem drip started.
# Type II NM
Troponin going up
Continue aspirin. Hold beta-tristian as above. Continue statin.
Heparin drip started by cardiology after speaking to patient's -she was hesitant yesterday as patient has a history of hemorrhagic CVA with biologic agents from renal cell carcinoma several years ago
# Acute hypoxic respiratory insufficiency
Likely secondary to heart failure, pleural effusion.
VQ scan negative for PE
Pleural flxbepft-vywsu-kazcr
Likely has acute HFrEF-proBNP 27,000
Echo not the best quality with tachycardia EF 30%
Lasix 80 mg IV given in ER with out any benefit.
Follow daily weights intake output charting with following
# TME likely secondary to above and DESTINEE
# Acute kidney injury with a creatinine of 5.0 on admission
Unclear if cardiorenal versus progression of the disease. Hyperkalemia and metabolic acidosis
Stage IV CKD
Acute kidney injury could be secondary to cardiorenal state, use of NSAIDs. In the setting of CYNDY inhibitors also.
Hyperkalemia. Lokelma ordered
Check urinalysis and urine sodium.
Heard catheter
Creatinine elevated to 5.2 today
Last creatinine at [facility] was from June 2022 it was 2.34
Stopped Aleve
Hold lisinopril
Continue calcitriol
Nephrology evaluation
May need to initiate HD
# Right pleural effusion. Thoracentesis with fluid studies and cytology to rule out malignant pleural effusion given history of metastatic renal cell carcinoma
# Coronary artery disease with coronary artery calcification
Cards Dr Yosef Petty -Last seen 02/29/24
CAD Lext Cx stent 2019 Severe diffuse LAD ds not amenable to RV
Asymptomatic BF Block
History of non-STEMI followed by nephrectomy
ECHO 2019- EF was 60 %.
Cath 2019 - ?
Continue aspirin, statin and beta-tristian. Hold lisinopril as above
# History of NSVT
# History of CVA-hemorrhagic strokes while on biologic agents for renal cell carcinoma treated at [facility].
# Hypertension-Hold beta-blockers. Hold amlodipine and lisinopril
# Hyperlipidemia-continue atorvastatin
# Diabetes-hold Actos. Continue Prandin at 1 mg TID for now. Accu-Cheks and sliding scale coverage
# Hypothyroidism-continue Synthroid
# He has a H/O Met RCC diagnosed in 2012. Underwent right nephrectomy, adrenalectomy and liver resection November 2012. He was on Votrient 800 mg from dec 2012 to September 2013 Was stopped due to Acute hemorrhagic CVA.Then he was on Everolimus for
hepatic mets, Then Nivolumab in September 2014 stopped 2016 due to disease progression. Tasocitinib from September 2015 to September 2016. September had another hemorrhagic CVA. He also then got radiation to the liver metastasis in April 2017 till May 2017. He
also had more radiation in September 2017. Now being observed. Follows with Dr. Schwartz
# Stage II adenocarcinoma of the prostate with radiation September 2022 and 6 months of androgen deprivation therapy with Lupron which ended in October 2022. Continue finasteride, Flomax, Follows with Dr. Schwartz
# Ambulatory dysfunction-uses a walker and electric scooter outside the home
# Ex-smoker
# CODE STATUS addressed with patient and . deferred to patient. He wants to be DNR.
Discussed with cardiology
Discussed with nursing at bedside
Discussed with neurology
Called and left message for
time spent over 52 min
Part of this note was created using voice recognition system. Occasional wrong word or��sound alike� substitutions may have inadvertently occurred due to the inherent limitations of voice recognition software. If noted kindly bring it to my
attention for correction.
--- NOTE | 2024-03-17 10:19 | W.CON.NEPH ---
Consultation
-
Date/Time Consultation Requested: 03/16/24 1636
Date/Time Consultation Performed: 03/17/24 0945
Requesting Provider: Amada Ramos
Performing Provider: Stephanie Yeh
Reason for Consultation: Scott with CKD
Medical History
-
Chief Complaint: AMS
History of Present Illness:
78-year-old male with history of stage IV renal cancer (mets to right lung, liver, adrenal gland)s/p nephrectomy 2012 s/p XRT and chemo till 2017, follows [facility] yrly, stage III prostate cancer s/p radiation therapy takes finasteride, Flomax, CKD4,
GFR [address]s [address] castillo at [place], 3 CVA currently ASA and not on anticoagulation given history of recurrent falls, hypertension on amlodipine, lisinopril and metoprolol, hypercholesterolemia on statin, diabetes type 2 on Actos,
repaglinide, hypothyroidism, CAD s/p cardiac stent presented with altered mental status and shortness of breath for 1 day. Patient's reports that he had a fall at 2days ago, Took 2 doses of naproxen for pain, did not hit his head or lose
consciousness however she believes he has been intermittently confused since the fall. She also notes that patient has been more short of breath with minimal activity. on admit creatinine was at 5, potassium 5.4, BUN 75. reports for the last
week or so his appetite has been poor. He sometimes urinates frequently and sometimes does not urinate for long period of time. No reported fever or chest pain or abdominal pain or diarrhea. No nausea or vomiting. He saw the cardiology on
February and felt everything was good. He found to have atrial flutter with RVR, echocardiogram shows decreased EF 30%, mild to moderate mitral regurgitation and tricuspid regurgitation. Troponin elevated from 2 to 4.7, ProBNP more than 27,000.
Received 80 mg of Lasix last night only made about 400 cc of urine. he received a very low-dose of Ativan last night for agitation. During the visit today patient is very confused and unable to participate or give history. Most of the history is
opted to the chart and the on the phone. Reportedly his community associate left the practice and patient was asked to find a new community associate. Last saw him in January and reportedly it was discussed future need of dialysis.
Past Medical History
Hypertension
Diabetes mellitus type 2
Nephrectomy with CKD stage4
Prostate cancer status post radiation
Renal cell cancer status post radiation and [facility] [id number]
CAD with history of stent
History of CVA �3
Hypothyroidism
Past Surgical History: Other ( nephrectomy, CAD with a stent,)
Social History
Tobacco: Former Smoker (quit 2012)
Alcohol: Occasional
Personal:
Living: With Family
Family History
no h/o CK D
Family History: Not Pertinent
Allergies / Home Medications
Allergy/AdvReac Type Severity Reaction Status Date / Time
No Known Allergies Allergy Verified 04/10/23 00:02
�Medication �Instructions �Recorded �Confirmed �Type
amlodipine 5 mg tablet 5 mg PO DAILY 04/10/23 03/16/24 History
aspirin 81 mg tablet,delayed 81 mg PO QPM 04/10/23 03/16/24 History
release
atorvastatin 40 mg tablet 40 mg PO QPM 04/10/23 03/16/24 History
calcitriol 0.25 mcg capsule 0.25 mcg PO DAILY 04/10/23 03/16/24 History
cholecalciferol (vitamin D3) 25 25 mcg PO DAILY 04/10/23 03/16/24 History
mcg (1,000 unit) tablet (Vitamin
D3)
levothyroxine 100 mcg tablet 100 mcg PO DAILY 04/10/23 03/16/24 History
(Synthroid)
lisinopril 40 mg tablet 40 mg PO DAILY 04/10/23 03/16/24 History
pioglitazone 15 mg tablet (Actos) 15 mg PO DAILY 04/10/23 03/16/24 History
tamsulosin 0.4 mg capsule (Flomax) 0.4 mg PO DAILY 04/10/23 03/16/24 History
cholecalciferol (vitamin D3) 25 50 mcg PO QPM 03/16/24 03/16/24 History
mcg (1,000 unit) tablet (Vitamin
D3)
finasteride 5 mg tablet 5 mg PO DAILY 03/16/24 03/16/24 History
metoprolol tartrate 50 mg tablet 50 mg PO BID 03/16/24 03/16/24 History
naproxen sodium 220 mg tablet 440 mg PO BIDPRN PRN mild pain 03/16/24 03/16/24 History
(Aleve)
repaglinide 1 mg tablet 2 mg PO TID 03/16/24 03/16/24 History
Review of Systems
-
unable to opted patient is confused
Physical Exam
Vital Signs
Vital Signs
Temp Pulse Resp BP Pulse Ox
97.9 F 131 20 106/73 97
03/17/24 07:00 03/17/24 09:08 03/17/24 07:00 03/17/24 09:08 03/17/24 07:00
Lab Results
Sodium 138 mmol/L (135-145) 03/17/24 04:14
Potassium 5.2 mmol/L (3.5-5.1) H 03/17/24 04:14
Chloride 106 mmol/L (98-107) 03/17/24 04:14
Carbon Dioxide 17 mmol/L (22-30) L 03/17/24 04:14
BUN 81 mg/dl (9-20) H 03/17/24 04:14
Creatinine 5.2 mg/dL (0.7-1.3) H* 03/17/24 04:14
eGFR 10.59 03/17/24 04:14
Glucose 121 mg/dl (70-99) H 03/17/24 04:14
Calcium 8.3 mg/dl (8.4-10.2) L 03/17/24 04:14
Wic-T-Jxjduilndal Pept > 71779 pg/ml 03/16/24 13:57
Albumin 3.4 g/dl (3.5-5.0) L 03/17/24 04:14
Abnormal Lab Results
03/16/24 03/16/24 03/16/24
12: 13:57 18:12
RBC
Hgb
Hct
MCHC
RDW
MPV
Absolute Neuts (auto)
Absolute Lymphs (auto)
Neutrophils %
Lymphocytes %
pH
pCO2
HCO3
Potassium
Carbon Dioxide
BUN
Creatinine
Glucose
Hemoglobin A1c
Calcium
Magnesium
Alkaline Phosphatase
Lactate Dehydrogenase 303 H
Troponin I 2.060 H* 2.830 H* D
Albumin
Urine RBC
Urine Bacteria (Reflex)
Urine Sodium
Urine Glucose
Urine Albumin (Reflex)
POC Glucose
03/16/24 03/16/24 03/17/24
21:29 23:49 04:14
RBC 4.19 L
Hgb 12.1 L
Hct 37.7 L
MCHC 32.1 L
RDW 17.6 H
MPV 11.0 H
Absolute Neuts (auto) 8.5 H
Absolute Lymphs (auto) 0.6 L
Neutrophils % 87.7 H
Lymphocytes % 5.6 L
pH
pCO2
HCO3
Potassium 5.2 H
Carbon Dioxide 17 L
BUN 81 H
Creatinine 5.2 H*
Glucose 121 H
Hemoglobin A1c 7.3 H
Calcium 8.3 L
Magnesium 2.6 H
Alkaline Phosphatase 140 H
Lactate Dehydrogenase
Troponin I 4.730 H*
Albumin 3.4 L
Urine RBC 3-6 A
Urine Bacteria (Reflex) Many A
Urine Sodium 29 L
Urine Glucose Trace A
Urine Albumin (Reflex) 2+ A
POC Glucose 146 H
03/17/24 03/17/24
07:54 11:48
RBC
Hgb
Hct
MCHC
RDW
MPV
Absolute Neuts (auto)
Absolute Lymphs (auto)
Neutrophils %
Lymphocytes %
pH 7.30 L
pCO2 34 L
HCO3 16.7 L
Potassium
Carbon Dioxide
BUN
Creatinine
Glucose
Hemoglobin A1c
Calcium
Magnesium
Alkaline Phosphatase
Lactate Dehydrogenase
Troponin I
Albumin
Urine RBC
Urine Bacteria (Reflex)
Urine Sodium
Urine Glucose
Urine Albumin (Reflex)
POC Glucose 106 H
renal US:
Left kidney:
Left kidney measures 11 x 6 x 5.6 cm. No shadowing renal calculus identified. There appears to be mild distention of the renal pelvis, though without distended calyces. However, this raises possibility of mild hydronephrosis.
Urinary bladder:
Empty.
IMPRESSION:
Limited by body habitus.
Prior right nephrectomy.
No sonographically demonstrable left renal calculus. There appears to be mild distention of the renal pelvis, though without distended calyces. However, this raises possibility of mild hydronephrosis.
CT chest with out contrast:
IMPRESSION:
Moderate right pleural effusion with right lower lobe 'consolidation' with air bronchograms. Findings could represent atelectasis and/or pneumonia. Right lower lobe mass cannot be excluded.
Small left pleural effusion with accompanying left lower lobe subsegmental atelectasis.
Coronary artery calcifications.
No pneumothorax.
echo:
CONCLUSIONS
Moderately reduced left ventricular systolic function. Left ventricular
ejection fraction is 30%.
Global hypokinesis.
Mild/moderate mitral regurgitation.
Mild/moderate tricuspid regurgitation.
No prior study available for comparison.
Physical Exam
General: Nontoxic and Other (not oriented, confused)
HEENT: Anicteric and Trachea Midline
Respiratory: Nonlabored Respirations and Other ( very decreased breath sounds)
Cardiac: S1/S2, Murmur and Other ( tachycardic 130s)
Breast: Deferred by me
Abdomen: Soft, Nontender and Nondistended
Musculoskeletal: No Cyanosis and Edema (1+chr per )
Skin: No Rash
Neuro: Other ( difficulty lysis with current mental status, lethargic and altered)
Data Reviewed
-
Radiology: Report Reviewed by me and Discussed with Family
Labs: Labs Reviewed by me, Discussed with Physician, Discussed with Nurse and Discussed with Family
Assessment/Plan
-
IMP:
SCOTT on CKD stage IV-baseline GFR 20, cr 2.98-Oct Dr Castillo at [place]
Mild hyperkalemia
Non gap metabolic acidosis
TME
Acute hypoxic respiratory insufficiency,
Moderate right pleural effusion with right lower lobe 'consolidation' with air bronchograms. Findings could represent atelectasis and/or pneumonia. Right lower lobe mass cannot be excluded on CT.
Acute HFrEF 30%
Atrial flutter with RVR
Type 2 MT
trop elevation
CAD-s/p stenting
Essential hypertension
History of CVA
Chronic anemia
Stage IV right renal cancer-s/p nephrectomy
Stage III prostate cancer-status post radiation therapy
Hypercholesterolemia
Hypothyroidism
Ambulatory dysfunction
Plan:
A/w AMS, SOB
SCOTT with CKD-creatinine remains elevated at 5.2, urine output only 400 cc since the Lasix last night.
Highly suspect cardiorenal in etiology versus progressive CKD, UA relatively bland
Renal ultrasound with the possible mild left hydronephrosis, continue Heard catheter
Agree with the additional dose of Lasix
He has atrial tachycardia, currently on cardizm gtt, was on metoprolol
Echo report revealed EF 30%, heparin gtt
blood pressures are soft
Continue oral bicarbonate for metabolic acidosis
once hemodynamics improve likely consider dialysis if urine output remains poor
Antibiotics per primary
Agree with thoracentesis
Case discussed with the on the phone in detail, understands potential need of dialysis the next 24-48 hours
Avoid nephrotoxins, hold lisinopril
Discussed with the nursing
--- NOTE | 2024-03-17 10:29 | PTCARENOTE ---
Pt with waxing and waning confusion, garbled speech and motor responses. able to move all extremities but weakness is inconsistent to side- DR. Eisenberg ordered stat head CT- pt sent and returned with RN stylist assistant.
[2024-03-17 10:39] LABS: Glycohemoglobin (HgbA1c) 7.3 % (4.0-5.6)
[2024-03-17] MEDS: HEPARIN 4000 UNITS IV (11:04)
[2024-03-17] MEDS: HEPARIN 25000 UNITS/250 ML IV (11:05)
[2024-03-17 11:15] LABS: Glucose - Point of Care 73 mg/dl (70-99)
--- NOTE | 2024-03-17 11:42 | CON.NEURO ---
Neuro Assessment/Plan
Assessment
Acute onset change in mental status, most likely toxic metabolic in nature in a patient with prior brain injuries due to recurrent stroke. The strokes have been described as hemorrhagic on 2 occasions and attributed to immunotherapy provided for
renal cell carcinoma.
It is possible that the tonic gaze preference to the left represents recrudescence of prior stroke as the patient most likely is experiencing right frontal lobe dysfunction in addition to probable weakness of the left frontal eye singh.
Differential diagnosis would include seizures although with the patient's continued wakefulness, although opaque due to toxic encephalopathy.
Plan
Remediate toxic exposures if possible
Continue aspirin, with replacement with the use of anticoagulation as falling is not a clear contraindication for the use of anticoagulation
Eventual MRI of brain when patient is able to tolerate same
Consider additional metabolic factors if the patient does not have improvement of mentation following normalization of creatinine
Will follow peripherally
Consultation
Order
Date of Consultation: 03/17/24
Requesting Provider: Hospitalists
Reason for Consult: Visual field decline
Subjective/Objective
Subjective Data
Date of Service: March 17, 2024
Unknown handed
Patient presented to this [facility] emergency department one day ago With change mental status and shortness of breath. This began after falling without head strike and an episode of heart rate in the 140s which spontaneously resolved. Since that
time, patient was described as having probable decompensation of congestive heart failure.
This morning, patient was described as having newly discovered right visual field cut leading to this consultation. Patient himself is unable to provide his own medical information.
Objective Data
Vital Signs
Temp Pulse Resp BP Pulse Ox
36.5 C 131 18 112/77 97
03/17/24 11:06 03/17/24 11:00 03/17/24 11:06 03/17/24 11:00 03/17/24 11:06
Lab Results
03/17/24 04:14
APTT 24.0 Sec (23.4-35.0) 03/17/24 09:25
Sodium 138 mmol/L (135-145) 03/17/24 04:14
Potassium 5.2 mmol/L (3.5-5.1) H 03/17/24 04:14
BUN 81 mg/dl (9-20) H 03/17/24 04:14
Glucose 121 mg/dl (70-99) H 03/17/24 04:14
Calcium 8.3 mg/dl (8.4-10.2) L 03/17/24 04:14
Vtu-X-Ouleqwdlccu Pept > 69129 pg/ml 03/16/24 13:57
Patient Allergies
No Known Allergies Allergy (Verified 04/10/23 00:02)
Review of Systems
-
Unable to obtain full review of systems at this time due to: Lethargy and Aphasia
History Source: Patient
All other systems: Reviewed and negative
Physical Exam
-
General: No Apparent Distress and Appears Stated Age
Eyes: Round OU, [place] Conjunctivae and No Ptosis
HEENT: Anicteric and Moist Mucous Membranes
Neck: Full Range of Motion
Respiratory: No Dyspnea
Cardiac: No JVD
GI: Non-distended
Skin: Unremarkable
Extremities: No Clubbing, No Cyanosis and No Edema
Psych: Unable to Assess
Extended Neurological Exam
Mood & Affect: Unable to Assess
Attention Span & Concentration: Awake, Unable to Perform 2 Step Request, Unresponsive to Verbal Stimuli and Other (Unable to perform single step requests); Negative Alert, Interactive or Unresponsive to Physical Stimuli (questionable vocalization to
pain stim in right arm)
Memory: Unable to Assess
Tremor: Hand Tremor Absent and Head Tremor Absent
Involuntary Movement: None
Speech: Other (rare verbalization with pain, inconsistent)
Cranial Nerve II: Left Eye: Pupillary Reactivity Unremarkable, Pupillary Size Unremarkable and Unable to Assess Visual Singh
Cranial Nerve II: Right Eye: Pupillary Reactivity Unremarkable, Pupillary Size Unremarkable and Unable to Assess Visual Singh
Cranial Nerves III, IV, : Extraocular Movement: Other (gaze pref to the left conjugately)
Cranial Nerve VII: Facial Symmetry: Normal Facial Symmetry
Cranial Nerve VIII: Hearing: Unremarkable Hearing to Normal Conversational Volume
Cranial Nerves IX, X: Palate Movement: Palate Elevation Symmetric
Cranial Nerve XI: Shoulder Shrug: Unable to Assess
Cranial Nerve XII: Tongue Protusion: Unable to Assess
Muscle Strength, Overall: Spontaneously Moves (All extremities)
Muscle Bulk & Tone: Bulk Unremarkable and Tone Unremarkable
Pronator Drift: Unable to Assess
Deep Tendon Reflexes: Absent Throughout
Cold Sensation: Unable to Assess
Vibration Sensation: Unable to Assess
Touch Sensation: Withdrawal to Pain
Coordination: Unable to Assess
Babinski Sign: Absent Bilaterally
Gait & Station: Unable to Assess
Data Reviewed
-
CT Head: Report Reviewed
Labs: Report Reviewed
Reviewed with: Physician
Old Records: Summarized
Medications
-
Active Medications
Generic Name Dose Route Start Last Admin
Trade Name Freq PRN Reason Stop Dose Admin
Aspirin 81 mg 03/16/24 21:19 03/16/24 21:39
Aspirin 81 Mg (Enteric Coated) Tablet PO 04/13/24 21:18 81 mg
QPM KORINA Administration
Atorvastatin Calcium 40 mg 03/16/24 21:19 03/16/24 21:39
Atorvastatin (Lipitor) 40 Mg Tablet PO 04/13/24 21:18 40 mg
QPM KORINA Administration
Calcitriol 0.25 mcg 03/17/24 08:00 03/17/24 07:55
Calcitriol 0.25 Microgram Capsule PO 04/14/24 07:59 0.25 mcg
DAILY KORINA Administration
Cholecalciferol 25 mcg 03/17/24 08:00 03/17/24 07:55
Cholecalciferol (Vitamin D3) 25 Mcg Tablet (1,000 Units) PO 04/14/24 07:59 25 mcg
DAILY KORINA Administration
Dextrose 12.5 grams 03/16/24 21:19
Dextrose 50% (0.5 Grams/Ml) 50 Ml Syringe IV 04/13/24 21:18
[id number] PRN
hypoglycemia
Protocol
Finasteride 5 mg 03/17/24 08:00 03/17/24 07:55
Finasteride 5 Mg Tablet PO 04/14/24 07:59 5 mg
DAILY KORINA Administration
Glucagon 1 mg 03/16/24 21:19
Glucagon 1 Mg Vial IM 04/13/24 21:18
PRN PRN
hypoglycemia
Protocol
Diltiazem HCl 125 mg in 125 mls @ 0 mls/hr 03/17/24 08:30 03/17/24 09:10
Cardizem IV 125 mls
PER PROTOCOL KORINA Administration
Protocol
Per Protocol
Heparin Sodium 25,000 units in 250 mls @ 0 mls/hr 03/17/24 08:45 03/17/24 11:05
Heparin 19894 Units/250 Ml IV 250 mls
PER PROTOCOL KORINA Administration
Protocol
Per Protocol
Insulin Aspart 0 units 03/17/24 07:30 03/17/24 11:33
Insulin Aspart Low Resistance 300 Units/3 Ml Pen.Injctr SC 04/14/24 07:29 Not Given
AC KORINA
Protocol
Levalbuterol HCl 1.25 mg 03/17/24 11:37
Levalbuterol 1.25 Mg/3 Ml Ampul INH 03/17/24 11:38
R NOW STA
Protocol
Levothyroxine Sodium 100 mcg 03/17/24 06:00 03/17/24 05:54
Levothyroxine 100 Mcg Tablet PO 04/14/24 05:59 100 mcg
DAILY @ 0600 KORINA Administration
Metoprolol Tartrate 50 mg 03/16/24 21:19 03/17/24 09:08
Metoprolol 50 Mg Regular Release Tablet PO 04/13/24 21:18 Not Given
BID KORINA
Metoprolol Tartrate 2.5 mg 03/16/24 21:19 03/16/24 21:32
Metoprolol 5 Mg/5 Ml Vial IV 04/13/24 21:18 2.5 mg
Q6HPRN PRN Administration
HR Sustaining over 110
Repaglinide 1 mg 03/17/24 08:00 03/17/24 07:55
Repaglinide 1 Mg Tablet PO 04/14/24 07:59 1 mg
TID @ 0800,1200,1700 KORINA Administration
Sodium Bicarbonate 650 mg 03/17/24 16:00
Sodium Bicarbonate 650 Mg Tablet PO 04/14/24 15:59
TID KORINA
Sodium Chloride 0 flush 03/16/24 18:00
Sodium Chloride 0.9% (Flush) Syringe IV 04/13/24 17:59
PER PROTOCOL KORINA
Tamsulosin HCl 0.4 mg 03/17/24 08:00 03/17/24 07:55
Tamsulosin 0.4 Mg Capsule PO 04/14/24 07:59 0.4 mg
DAILY KORINA Administration
Home Medications
�Medication �Instructions �Recorded
amlodipine 5 mg tablet 5 mg PO DAILY Blood Pressure 04/10/23
aspirin 81 mg tablet,delayed 81 mg PO QPM Blood Clot 04/10/23
release Prevention/Tx
atorvastatin 40 mg tablet 40 mg PO QPM High Cholesterol 04/10/23
calcitriol 0.25 mcg capsule 0.25 mcg PO DAILY Kidney Disease 04/10/23
cholecalciferol (vitamin D3) 25 25 mcg PO DAILY Supplement 04/10/23
mcg (1,000 unit) tablet (Vitamin
D3)
levothyroxine 100 mcg tablet 100 mcg PO DAILY Thyroid 04/10/23
(Synthroid)
lisinopril 40 mg tablet 40 mg PO DAILY Blood Pressure 04/10/23
pioglitazone 15 mg tablet (Actos) 15 mg PO DAILY Diabetes 04/10/23
tamsulosin 0.4 mg capsule (Flomax) 0.4 mg PO DAILY Urinary Issue 04/10/23
cholecalciferol (vitamin D3) 25 50 mcg PO QPM Supplement 03/16/24
mcg (1,000 unit) tablet (Vitamin
D3)
finasteride 5 mg tablet 5 mg PO DAILY Urinary Issue 03/16/24
metoprolol tartrate 50 mg tablet 50 mg PO BID Blood Pressure 03/16/24
naproxen sodium 220 mg tablet 440 mg PO BIDPRN PRN mild pain 03/16/24
(Aleve)
repaglinide 1 mg tablet 2 mg PO TID Diabetes 03/16/24
Past History
Past History
ED Past Medical History: Arrthythmia (Paroxysmal SVT), CAD, Cancer (Kidney 2012), CHF, CVA (X 3, two described as hemorrhagic), HTN, Hypercholesterolemia, NIDDM, Hypothyroidism and Other ( BPH)
ED Past Surgical History: Cardiac (Stent), Urological ( nephrectomy Left for cancer) and Other (Right adrenalectomy, liver resection 2012)
Social History
Tobacco: Former smoker
Alcohol: Occasional
Personal:
Living: with family
Family History
Family History: Negative Diabetes
[2024-03-17] MEDS: XOPENEX 1.25 MG INHALANT SOLUTION INH (11:52)
[2024-03-17] MEDS: ATROVENT NEBULES 0.5 MG INH (11:52)
[2024-03-17 11:56] LABS: B.E. -8.8 mmol/L; HCO3 16.7 mmol/L (21-28); O2 Saturation % 97.7 % (94-98); PCO2 34 mmHg (35-48); PO2 99 mmHg (83-108)
[2024-03-17] MEDS: PRANDIN PO ×2 (12:04→16:42)
[2024-03-17] MEDS: LASIX 120 MG IV (12:14)
--- NOTE | 2024-03-17 12:44 | PTCARENOTE ---
Pt slowly worsening at being able to follow commands this morning- Dr. Eisenberg aware- Neuro into to see pt.
--- NOTE | 2024-03-17 12:50 | W.PN.UPDATE ---
Update Note
Progress Note Update
Went and evaluated pt again as he was agitated.
Pt SOB, Wheezing left side.
Confused ( Likely TME from illness and also Ativan last night)
Cannot give any antipsychotics as his QTC is long, avoid Benzos
CT head no acute changes
Use restraints for patient's safety
Discussed with nephrology and cardiology. Dose of Lasix ordered
Also discussed with IR to see if they can do paracentesis
Chest x-ray noted with increased effusion. Consolidation could be atelectasis from the effusion however with patient's symptoms we will also add antibiotics since infection cannot be ruled out
Heparin has been already been started by Cards
difficult situation
May move to IMU if needs pressors to maintain BP while treating heart rate
D/W RN
[2024-03-17] MEDS: ZOSYN 50 IV ×2 (13:54→19:27)
[2024-03-17 14:41] LABS: % Basophils 0.2 % (0-2); % Eosinophils 0.8 % (0-6); % Immature Granulocytes 0.4 % (0-0.5); % Lymphocytes 3.8 % (20.5-51.1); % Monocytes 5.9 % (1.7-9.3); % Neutrophils 88.9 % (42.2-75.2); Absolute Eosinophils 0.1 10^3/uL (0-0.7); Absolute Lymphocytes 0.4 10^3/uL (1.2-3.4); Absolute Monocytes 0.6 10^3/uL (0.1-0.6); Hematocrit 33.5 % (39.0-52.0); Mean Corp Hgb Conc. 32.8 g/dL (33.0-37.0); Mean Corpuscular Hgb 29.1 pg (27.0-31.0); Mean Corpuscular Volume 88.6 fL (80.0-94.0); Mean Platelet Volume 10.8 fL (7.4-10.4); Nucleated Red Blood Cells % 0 % (-); Platelet Count 192 10^3/uL (130-400); Red Blood Cell Count 3.78 10^6/uL (4.70-6.10); Red Cell Dist. Width 17.6 % (11.5-14.5); White Blood Cell Count 10.1 10^3/uL (4.8-10.8)
--- NOTE | 2024-03-17 14:58 | PTCARENOTE ---
Order placed for IMU transfer- Report given to YULY holley.
[2024-03-17 15:27] LABS: Glucose - Point of Care 85 mg/dl (70-99)
--- NOTE | 2024-03-17 15:29 | W.PN.UPDATE ---
Update Note
Progress Note Update
Bedside R thora: 1250 mL removed. Samples sent.
CXR ordered.
--- NOTE | 2024-03-17 15:30 | PTCARENOTE ---
Bedside thoracentesis completed.
[2024-03-17 15:54] LABS: Body Fluid pH 7.5
[2024-03-17 16:01] LABS: Body Fluid Mononuclear 48.5 %; Body Fluid Polymorphonuclear 51.5 %; Body Fluid WBC 448 /CUMM
[2024-03-17 16:06] LABS: Body Fluid Glucose 93 mg/dl; Body Fluid LDH 131 U/L; Body Fluid Protein 2.8 g/dl; Body Fluid Triglycerides < 30 mg/dl
[2024-03-17 16:17] LABS: Body Fluid Second Tech CMC
--- NOTE | 2024-03-17 16:26 | PTCARENOTE ---
report given to stephen- yordy to room 3360. handoff completed in the worklist. aware of room change.
[2024-03-17] MEDS: ASPIR LOW (ENTERIC COATED) PO (17:00)
[2024-03-17] MEDS: LIPITOR PO (17:00)
[2024-03-17] MEDS: CORDARONE 103 MG IV (17:36)
[2024-03-17 17:44] LABS: Glucose - Point of Care 83 mg/dl (70-99)
[2024-03-17 17:48] LABS: APTT 64.5 Sec (23.4-35.0)
--- NOTE | 2024-03-17 18:00 | PTCARENOTE ---
Received pt as transfer from IVU as IMU overflow into rm [id number] @ approx 1645. Pt. obtunded/lethargic, does not follow commands; GUSTAFSON but not to commands. NIH- 20, difficult to assess d/t mental status; Dr. Eisenberg and Dr. Redding aware.
Incomprehensible/garbles sounds. Pupils equal/5mm/sluggish. Uncontrolled afib on monitor, rate into 130's. Critical troponin from 1530 resulted- 4.730. Dr. Ceballos made aware of uncontrolled rate and troponin. Further orders received for
troponin trend orders and amio bolus x1- see JUN. HR improved in 100-110's. SpO2 93% on 3LNC; in moist/coughing episodes. Strict NPO status maintained. Heard in place, draining yellow urine. R AC w Heparin and Cardizem gtts- see flow sheet. R/L
hand IVs patent, dressing c/d/i. Complete hygiene provided. Repositioned per protocol.
--- NOTE | 2024-03-17 20:45 | PTCARENOTE ---
Pt received obtunded. Arouses to touch but does not follow commands or answer questions. Pt has occasional incomprehensible sounds. Pt is able to move R arm. L arm drops to bed when lifted but pt does move L arm some. Heparin at 1100units/hr.
Cardizem remains at 15mg/hr. Assessment as charted. Will continue to monitor.
[2024-03-17 22:29] LABS: Blood Urea Nitrogen 83 mg/dl (9-20); Calcium 8.2 mg/dl (8.4-10.2); Carbon Dioxide 15 mmol/L (22-30); Chloride 105 mmol/L (98-107); Estimated Creatinine Clearance 11 ml/min; Glucose 111 mg/dl (70-99); Potassium 5.4 mmol/L (3.5-5.1); Sodium 136 mmol/L (135-145); eGFR 10.35
[2024-03-17 23:45] LABS: Glucose - Point of Care 114 mg/dl (70-99)
[2024-03-18] VITALS (22 sets, daily range): BP systolic 90–122; BP diastolic 49–94; BMI 29.5
[2024-03-18 01:29] LABS: APTT 171.5 Sec (23.4-35.0)
[2024-03-18] MEDS: CARDIZEM 125 IV ×3 (02:28→15:51)
[2024-03-18] MEDS: ZOSYN 50 IV ×4 (02:28→19:09)
[2024-03-18 04:04] LABS: % Basophils 0.1 % (0-2); % Eosinophils 0.5 % (0-6); % Immature Granulocytes 0.5 % (0-0.5); % Lymphocytes 5.1 % (20.5-51.1); % Monocytes 4.9 % (1.7-9.3); % Neutrophils 88.9 % (42.2-75.2); Absolute Lymphocytes 0.4 10^3/uL (1.2-3.4); Absolute Monocytes 0.4 10^3/uL (0.1-0.6); Absolute Neutrophils 7.4 10^3/uL (1.4-6.5); Hematocrit 35.4 % (39.0-52.0); Mean Corp Hgb Conc. 31.1 g/dL (33.0-37.0); Mean Corpuscular Hgb 28.4 pg (27.0-31.0); Mean Corpuscular Volume 91.2 fL (80.0-94.0); Mean Platelet Volume 10.6 fL (7.4-10.4); Nucleated Red Blood Cells % 0 % (-); Platelet Count 201 10^3/uL (130-400); Red Blood Cell Count 3.88 10^6/uL (4.70-6.10); Red Cell Dist. Width 17.4 % (11.5-14.5); White Blood Cell Count 8.3 10^3/uL (4.8-10.8)
[2024-03-18] MEDS: SYNTHROID PO (04:20)
[2024-03-18 04:26] LABS: ALT (SGPT) 19 U/L (0-50); AST (SGOT) 27 U/L (17-59); Albumin 3.1 g/dl (3.5-5.0); Alkaline Phosphatase 117 U/L (38-126); Blood Urea Nitrogen 86 mg/dl (9-20); Calcium 8.1 mg/dl (8.4-10.2); Carbon Dioxide 14 mmol/L (22-30); Chloride 105 mmol/L (98-107); Estimated Creatinine Clearance 11 ml/min; Glucose 114 mg/dl (70-99); Potassium 5.9 mmol/L (3.5-5.1); Sodium 135 mmol/L (135-145); Total Bilirubin 1.7 mg/dl (0.2-1.3); Total Protein 6.2 g/dl (6.3-8.2); eGFR 10.12
[2024-03-18] MEDS: SODIUM BICARBONATE 50 MEQ IV ×3 (05:02→19:46)
[2024-03-18] MEDS: DEXTROSE 50% SYRINGE 25 GRAMS IV (05:02)
[2024-03-18] MEDS: NOVOLIN R 5 UNITS IV (05:03)
--- NOTE | 2024-03-18 06:13 | PTCARENOTE ---
AM labs reported to [employer]. Orders received. Meds given as ordered. Pt more restless this am but still does not follow commands or answer questions. Will continue to monitor.
[2024-03-18 06:18] LABS: Glucose - Point of Care 145 mg/dl (70-99)
[2024-03-18] MEDS: FLOMAX PO (07:22)
[2024-03-18] MEDS: PROSCAR PO (07:22)
[2024-03-18] MEDS: ROCALTROL PO (07:23)
[2024-03-18] MEDS: VITAMIN D3 (cholecalciferol) PO (07:23)
--- NOTE | 2024-03-18 07:46 | W.PN.HOSP.TC ---
Addendum entered and electronically signed by Renetta Eisenberg MD 03/18/24 14:33:
I saw and evaluated the patient. I reviewed the resident�s note and agree with findings and plan as documented in the resident�s note except for changes in my documentation
Patient was drowsy slightly arousable pupils equal and reactive not following directions
I did not think there was a facial droop
Cardiovascular system S1-S2 tachycardic irregular
Chest decreased breath sounds at bases few rales right and left
Abdomen soft and nontender
Neuroexam is very difficult because of patient's drowsiness, pupils equal and reactive 5 mm
mild right facial droop
MRI of the brain-large acute lacunar infarct in the right MCA, moderate acute infarct in the left parietal lobe no midline shift or mass effect. Chronic microvascular ischemic changes. Old lacunar infarcts.
Cardioembolic stroke likely
Discussed with neurology
Hold heparin for 48 hours
Neuro checks and NIH scale
Dobbhoff tube placement for medicines/nutrition
Status post thoracentesis with over 1200 mL of transudative fluid removal by IR on 03/17/2024
Patient has metabolic acidosis for which he received boluses of IV bicarb
Can give bicarb via DH tube once it is established
Continue aspirin
Rates are still high for a flutter. Remains on Cardizem drip unfortunately no choice but to continue it for really fast heart rate even though we would not want to lower blood pressure at this point
Type II PA-continue aspirin. Continue statin via tube. Hold heparin drip as above
Acute systolic CHF-Lasix 1 more dose today. Only made 400 mL of urine so far with the Lasix
His TME is likely secondary to stroke and acute kidney injury
Patient would also need dialysis he was hesitant for dialysis in the beginning but wanted it later however no he is in a position where he also has other medical conditions going on.
Discussed with patient's regarding new cardiomyopathy, rapid A-fib, renal failure, stroke. Reviewed that he may need to go to rehab at the end of hospital stay. She stated that patient initially did not want to have dialysis as the quality of
his life was not really good however later on thought he should have it. He also would not want to be in a fdc. She also realizes that all this is limiting the quality of his life. This is his second marriage therefore she needs to talk
to his daughter from the first marriage to make sure that she is also on the same page. She is waiting for the call back. He also has a son from the first marriage he is estranged for the past 20 years.
let us know about that decision.
I discussed about options of continuing with full treatment versus hospice.
Multiple discussions with nephrology, neurology and cardiology
Reviewed with nursing
Reviewed with
Images reviewed by me
Total critical Time spent more than 40 minutes today.
Original Note:
Today's Communication/Plan
-
lokelma via tube
brain mri
switched meds to IV
iv lasix and diuril
follow labs
Assessment / Plan
Assessment / Plan
78-year-old male with history of stage IV renal cancer s/p right nephrectomy, stage III prostate cancer s/p radiation therapy, history of previous mets in the lung which reportedly resolved- followed by [facility], 3 CVA currently not on
anticoagulation given history of recurrent falls, hypertension, hypercholesterolemia, diabetes type 2, hypothyroidism, BPH, CAD s/p cardiac stent presented with altered mental status and shortness of breath.
# DESTINEE on CKD stage IV with hyperkalemia and metabolic acidosis
CT head:No acute intracranial abnormalities,Old lacunar infarct again suggested in the right internal capsule.
-Creatinine 5.2 today (reviewed lab work from January 2024 on the phone creatinine 2.98)
-Nephro consulted(per patient was informed by outpatient claims manager he might need dialysis)
-Volume overloaded on exam
-VQ scan:-low probability for PE
-1 dose of Iv lasix 80mg on 03/16/24
-fraser placement
-hold aleve and lisinopril
-given more confusion today;repeat head ct- unremarkable
- ordered brain MRI
-1 dose of lokelma to be given via tube
-1 dose of 120mg lasix and 1 dose of diuril 0.5
-patient s/p 1 amp na bicarb at 5am
# Acute hypoxic respiratory insufficiency, #SOB
Likely secondary to heart failure, pleural effusion.
-CT chest:Moderate right pleural effusion with right lower lobe 'consolidation' with air bronchograms. Findings could represent atelectasis and/or pneumonia. Right lower lobe mass cannot be excluded.
Small left pleural effusion with accompanying left lower lobe subsegmental atelectasis.
Coronary artery calcifications,No pneumothorax.
- s/p pleural tap 1250ml
- fluid studies ordered; cytology to rule out malignant pleural effusion;history of metastatic RCC
repeat cxr: Opacification in the right mid to lower lung, possibly slightly increased with known right lower lobe consolidation and moderate right pleural effusion seen on Chest CT of preceding day.
Opacification in the left lung base without significant change likely correlating with small left pleural effusion with left lower lobe subsegmental atelectasis seen on CT.
# TME likely secondary to above
#Altered mental status
-Nikita MRI
-continuezosyn
-wrist restraints; anti psychotic not recommended with prolong qtc
# HFrEF
# a fib
#tachycardia
-denies chest pain
-proBNP >91684
- daily weight
-cardizem drip
-amiodarone one dose by cardio
#type 2 PA
trop elevated
continue asa, hold metoprolol
heparin drip
# CAD
-s/p cardiac stenting
-continue asa, atorvastatin and hold metoprolol
# Essential hypertension
-hold amlodipine 5 mg
-hold metoprolol; order for prn use
-Hold lisinopril
# History of CVA; while on biologic for RCC
-Continue ASA via tube
# Sqv-zqxpljv-qdcasoese diabetes mellitus
-hold home repaglinide(lower dose 1mg)
-hold home pioglitazone
-ssc
# BPH
-Continue home tamsulosin
-Continue home finasteride
#Chronic anemia
#Stage IV right renal cancer-s/p nephrectomy
#Stage III prostate cancer-status post radiation therapy
#Hypercholesterolemia-continue atorvastatin
#Hypothyroidism-continue levothyroxine
# Ambulatory dysfunction-uses a walker and electric scooter outside the home
DVT proph:SCD
code: [id number]
Anticipated Discharge: 24 - 48 hours
Subjective/Interval History
-
Date of Service: March 18, 2024
Sleeping and lethargic
Objective Data
-
Labs:
Laboratory Results
03/17/24 03/18/24 03/18/24
21:54 01:03 03:46
WBC 8.3
Hgb 11.0 L
Hct 35.4 L
Plt Count 201
APTT 171.5 H*
Sodium 136 135
Potassium 5.4 H 5.9 H
Chloride 105 105
Carbon Dioxide 15 L 14 L*
BUN 83 H 86 H
Creatinine 5.3 H* 5.4 H*
Glucose 111 H 114 H
Calcium 8.2 L 8.1 L
Total Bilirubin 1.7 H
AST 27
ALT 19
Alkaline Phosphatase 117
03/18/24 03/18/24
07:00 08:30
WBC
Hgb
Hct
Plt Count
APTT Pending
Sodium Pending
Potassium Pending
Chloride Pending
Carbon Dioxide Pending
BUN Pending
Creatinine Pending
Glucose Pending
Calcium Pending
Total Bilirubin
AST
ALT
Alkaline Phosphatase
Vital Signs:
Vital Signs
Temp Pulse Resp BP Pulse Ox
99.7 F 90 17 104/50 98
03/18/24 07:35 03/18/24 06:00 03/18/24 06:00 03/18/24 06:00 03/18/24 06:00
I&O
03/17/24 03/18/24 03/19/24
06:59 06:59 06:59
Intake Total 100 / 100 690 / 690
Output Total 850 / 850
Balance 100 / 100 -160 / -160
Review of Systems
-
Unable to obtain full review of systems at this time due to: Patient Non-verbal
Physical Exam
-
General: Appears Chronically Ill and Obese
Respiratory: Wheezes and Decreased Breath Sounds
Cardiac: S1/S2 and Tachycardic
GI: Soft and Nontender
Skin: Warm and Dry
Psych: Confused
Data Reviewed
-
Labs: Labs Reviewed by me, Discussed with Physician and Discussed with Patient
--- NOTE | 2024-03-18 08:00 | PTCARENOTE ---
Received pt via handoff. NIH score of 18, pt does not follow commands but responds to verbal and tactile. Pupils +3 and sluggish, afebrile. Sinus tach, +1 edema on LE. 97% on 3L NC, diminished lungs sounds with crackles non productive wet cough.
Hypoactive bowel sounds in all 4Q. Heard CDI draining clear yellow urine. Gtts running see flowsheet. Call garcia at bedside.
--- NOTE | 2024-03-18 09:27 | W.PN.NEURO.1 ---
Today's Communication / Plan
-
Would replace aspirin, with anticoagulation as falling is not a clear contraindication for the use of anticoagulation
Consider additional metabolic factors if the patient does not have continued improvement of mentation following normalization of creatinine
Neuro Assessment/Plan
Assessment
Acute onset change in mental status, most likely toxic metabolic in nature in a patient with prior brain injuries due to recurrent stroke. The strokes have been described as hemorrhagic on 2 occasions and attributed to immunotherapy provided for
renal cell carcinoma.
It is possible that the tonic gaze preference to the left represents recrudescence of prior stroke as the patient most likely is experiencing right frontal lobe dysfunction in addition to probable weakness of the left frontal eye singh.
Differential diagnosis would include seizures although with the patient's continued wakefulness, although opaque due to toxic encephalopathy.
Plan
Remediate toxic exposures if possible
Continue aspirin, with replacement with the use of anticoagulation as falling is not a clear contraindication for the use of anticoagulation
Consider additional metabolic factors if the patient does not have continued improvement of mentation following normalization of creatinine
Will follow peripherally
Subjective/Objective
Subjective Data
Date of Service: March 18, 2024
Patient unable to provide his own medical history
Objective Data
Vital Signs
Temp Pulse Resp BP Pulse Ox
37.6 C 90 17 104/50 97
03/18/24 07:35 03/18/24 06:00 03/18/24 06:00 03/18/24 06:00 03/18/24 07:51
Lab Results
03/18/24 03:46
APTT 171.5 Sec (23.4-35.0) H* 03/18/24 01:03
Sodium 135 mmol/L (135-145) 03/18/24 03:46
Potassium 5.9 mmol/L (3.5-5.1) H 03/18/24 03:46
BUN 86 mg/dl (9-20) H 03/18/24 03:46
Glucose 114 mg/dl (70-99) H 03/18/24 03:46
Calcium 8.1 mg/dl (8.4-10.2) L 03/18/24 03:46
Fer-W-Whzvwadascv Pept > 83087 pg/ml 03/16/24 13:57
Patient Allergies
No Known Allergies Allergy (Verified 04/10/23 00:02)
Review of Systems
-
Unable to obtain full review of systems at this time due to: Lethargy
History Source: Patient
All other systems: Reviewed and negative
Physical Exam
-
General: No Apparent Distress and Appears Stated Age
Eyes: Round OU, [place] Conjunctivae and No Ptosis
HEENT: Anicteric and Moist Mucous Membranes
Neck: Full Range of Motion
Respiratory: No Dyspnea
Cardiac: No JVD
GI: Non-distended
Skin: Unremarkable
Extremities: No Clubbing, No Cyanosis and No Edema
Psych: Unable to Assess
Extended Neurological Exam
Mood & Affect: Unable to Assess
Attention Span & Concentration: Awake, Interactive, Unable to Perform 2 Step Request and Other (able to perform some single step requests); Negative Alert or Unresponsive to Verbal Stimuli
Memory: Unable to Recall Personal History
Tremor: Hand Tremor Absent and Head Tremor Absent
Speech: Other (rare verbalization with pain, inconsistent)
Cranial Nerve II: Left Eye: Pupillary Reactivity Unremarkable, Pupillary Size Unremarkable and Unable to Assess Visual Singh
Cranial Nerve II: Right Eye: Pupillary Reactivity Unremarkable, Pupillary Size Unremarkable and Unable to Assess Visual Singh
Cranial Nerves III, IV, : Extraocular Movement: Grossly Intact
Cranial Nerve VII: Facial Symmetry: Normal Facial Symmetry
Cranial Nerve VIII: Hearing: Unremarkable Hearing to Normal Conversational Volume
Cranial Nerves IX, X: Palate Movement: Unable to Assess
Cranial Nerve XI: Shoulder Shrug: Unable to Assess
Cranial Nerve XII: Tongue Protusion: Unable to Assess
Muscle Strength, Overall: Spontaneously Moves (All extremities)
Muscle Bulk & Tone: Bulk Unremarkable and Tone Unremarkable
Pronator Drift: Unable to Assess
Deep Tendon Reflexes: Absent Throughout
Cold Sensation: Unable to Assess
Vibration Sensation: Unable to Assess
Coordination: Unable to Assess
Gait & Station: Unable to Assess
Data Reviewed
-
Labs: Report Reviewed
Reviewed with: Nurse
Old Records: Summarized
Past History
Past History
ED Past Medical History: Arrthythmia (Paroxysmal SVT), CAD, Cancer (Kidney 2012), CHF, CVA (X 3, two described as hemorrhagic), HTN, Hypercholesterolemia, NIDDM, Hypothyroidism and Other ( BPH)
ED Past Surgical History: Cardiac (Stent), Urological ( nephrectomy Left for cancer) and Other (Right adrenalectomy, liver resection 2012)
Social History
Tobacco: Former smoker
Alcohol: Occasional
Personal:
Living: with family
Family History
Family History: Negative Diabetes
Medications
-
Medications:
Generic Name Dose Route Start Last Admin
Trade Name Freq PRN Reason Stop Dose Admin
Aspirin 81 mg 03/16/24 21:19 03/17/24 17:00
Aspirin 81 Mg (Enteric Coated) Tablet PO 04/13/24 21:18 Not Given
QPM KORINA
Atorvastatin Calcium 40 mg 03/16/24 21:19 03/17/24 17:00
Atorvastatin (Lipitor) 40 Mg Tablet PO 04/13/24 21:18 Not Given
QPM KORINA
Calcitriol 0.25 mcg 03/17/24 08:00 03/18/24 07:23
Calcitriol 0.25 Microgram Capsule PO 04/14/24 07:59 Not Given
DAILY KORINA
Cholecalciferol 25 mcg 03/17/24 08:00 03/18/24 07:23
Cholecalciferol (Vitamin D3) 25 Mcg Tablet (1,000 Units) PO 04/14/24 07:59 Not Given
DAILY KORINA
Dextrose 12.5 grams 03/16/24 21:19
Dextrose 50% (0.5 Grams/Ml) 50 Ml Syringe IV 04/13/24 21:18
[id number] PRN
hypoglycemia
Protocol
Finasteride 5 mg 03/17/24 08:00 03/18/24 07:22
Finasteride 5 Mg Tablet PO 04/14/24 07:59 Not Given
DAILY KORINA
Glucagon 1 mg 03/16/24 21:19
Glucagon 1 Mg Vial IM 04/13/24 21:18
PRN PRN
hypoglycemia
Protocol
Diltiazem HCl 125 mg in 125 mls @ 0 mls/hr 03/17/24 08:30 03/18/24 02:28
Cardizem IV 125 mls
PER PROTOCOL KORINA Administration
Protocol
Per Protocol
Heparin Sodium 25,000 units in 250 mls @ 0 mls/hr 03/17/24 08:45 03/17/24 11:05
Heparin 91204 Units/250 Ml IV 250 mls
PER PROTOCOL KORINA Administration
Protocol
Per Protocol
Piperacillin Sod/Tazobactam Sod 2.25 grams in 50 mls @ 100 mls/hr 03/17/24 20:00 03/18/24 07:47
Zosyn IV 50 mls
Q6H KORINA Administration
Insulin Aspart 0 units 03/17/24 18:00 03/18/24 06:12
Insulin Aspart Low Resistance 300 Units/3 Ml Pen.Injctr SC 04/14/24 17:59 Not Given
Q6 KORINA
Protocol
Levothyroxine Sodium 100 mcg 03/17/24 06:00 03/18/24 04:20
Levothyroxine 100 Mcg Tablet PO 04/14/24 05:59 Not Given
DAILY @ 0600 KORINA
Metoprolol Tartrate 50 mg 03/16/24 21:19 03/17/24 09:08
Metoprolol 50 Mg Regular Release Tablet PO 04/13/24 21:18 Not Given
BID KORINA
Metoprolol Tartrate 2.5 mg 03/16/24 21:19 03/16/24 21:32
Metoprolol 5 Mg/5 Ml Vial IV 04/13/24 21:18 2.5 mg
Q6HPRN PRN Administration
HR Sustaining over 110
Repaglinide 1 mg 03/17/24 08:00 03/17/24 16:42
Repaglinide 1 Mg Tablet PO 04/14/24 07:59 Not Given
TID @ 0800,1200,1700 KORINA
Sodium Chloride 0 flush 03/16/24 18:00
Sodium Chloride 0.9% (Flush) Syringe IV 04/13/24 17:59
PER PROTOCOL KORINA
Tamsulosin HCl 0.4 mg 03/17/24 08:00 03/18/24 07:22
Tamsulosin 0.4 Mg Capsule PO 04/14/24 07:59 Not Given
DAILY KORINA
--- NOTE | 2024-03-18 10:07 | W.PN.NEPH.PH ---
Today's Communication / Plan
-
diuresis
labs later today
Assessment/Plan
-
IMP:
DESTINEE on CKD stage IV-baseline GFR 20, cr 2.98-Oct Dr Castillo at [place]
Mild hyperkalemia
Non gap metabolic acidosis
TME
Acute hypoxic respiratory insufficiency,
Moderate right pleural effusion with right lower lobe 'consolidation' with air bronchograms. Findings could represent atelectasis and/or pneumonia. Right lower lobe mass cannot be excluded on CT.
Acute HFrEF 30%
s/p right thoracentesis of 1.2lit 03/17
Atrial flutter with RVR
Type 2 OK
trop elevation
CAD-s/p stenting
Essential hypertension
History of CVA
Chronic anemia
Stage IV right renal cancer-s/p nephrectomy
Stage III prostate cancer-status post radiation therapy
Hypercholesterolemia
Hypothyroidism
Ambulatory dysfunction
Plan:
A/w AMS, SOB
DESTINEE with CKD-creatinine remains elevated at 5.5, urine output only 450 cc despite Lasix
Highly suspect cardiorenal in etiology versus progressive CKD, UA relatively bland
Renal ultrasound with the possible mild left hydronephrosis, continue Fraser catheter
Agree with the 120mg Lasix, will also add diuril
He has atrial tachycardia, currently on cardizm gtt, was on metoprolol
Echo report revealed EF 30%, heparin gtt
blood pressures remain soft
hyperkalemia-Lokelma one enteral route established , cont diuresis
Monitor metabolic acidosis and prn IV pushes of bicarb, since NPO
likely need HD in next 24-48hrs
AMS -neuro follows, CT head neg, need eventual MRI, uremia is in differential
Antibiotics per primary
Case discussed with the on the phone in detail, understands potential need of dialysis the next 24-48 hours
based on hemodynamics he may need CRRT
she is going to speak to family and make a decision
Avoid nephrotoxins, hold lisinopril
Discussed with the nursing and primary
CC time spent 40min
-
-
Date of Service: March 18, 2024
CC / HPI / ROS
-
Chief Complaint:
DESTINEE with CKD
History of Present Illness:
cr up at 5.5, BUN 86, only 450cc over night with fraser
k high 5.9, bicarb 14 s/p 1 amp bicarb in am
Bp soft, afib with RVR on cardizem gtt, s/p 1 dose Amio
s/p thoracentesis of 1.2lit 03/17
Review of Systems:
remains altered, semi supine on bed on 2 lit of O2
no fever
Labs
-
Labs:
WBC 8.3 10^3/uL (4.8-10.8) 03/18/24 03:46
RBC 3.88 10^6/uL (4.70-6.10) L 03/18/24 03:46
Hgb 11.0 g/dL (13.0-18.0) L 03/18/24 03:46
Hct 35.4 % (39.0-52.0) L 03/18/24 03:46
Plt Count 201 10^3/uL (130-400) 03/18/24 03:46
Sodium 137 mmol/L (135-145) 03/18/24 09:42
Potassium 5.0 mmol/L (3.5-5.1) 03/18/24 09:42
Chloride 106 mmol/L (98-107) 03/18/24 09:42
Carbon Dioxide 16 mmol/L (22-30) L 03/18/24 09:42
BUN 86 mg/dl (9-20) H 03/18/24 09:42
Creatinine 5.5 mg/dL (0.7-1.3) H* 03/18/24 09:42
eGFR 9.90 03/18/24 09:42
Glucose 121 mg/dl (70-99) H 03/18/24 09:42
Calcium 8.1 mg/dl (8.4-10.2) L 03/18/24 09:42
Nfw-P-Arbtfzxunls Pept > 96454 pg/ml 03/16/24 13:57
Albumin 3.1 g/dl (3.5-5.0) L 03/18/24 03:46
Physical Exam
-
Vital Signs:
Vital Signs
Temp Pulse Resp BP Pulse Ox
99.7 F 90 17 104/50 97
03/18/24 07:35 03/18/24 06:00 03/18/24 06:00 03/18/24 06:00 03/18/24 07:51
Cardiovascular:: Irregular rate and rhythm
Lung Excursion:: Abnormal (decreased)
Abdomen:: Nontender and Soft
Extremity Edema:: +1: Bilateral: (trace)
Fraser Catheter: Yes
[2024-03-18 10:37] LABS: Blood Urea Nitrogen 86 mg/dl (9-20); Calcium 8.1 mg/dl (8.4-10.2); Carbon Dioxide 16 mmol/L (22-30); Chloride 106 mmol/L (98-107); Estimated Creatinine Clearance 11 ml/min; Glucose 121 mg/dl (70-99); Sodium 137 mmol/L (135-145)
[2024-03-18] MEDS: LASIX 120 MG IV (11:12)
[2024-03-18] MEDS: DIURIL 0.5 GRAM VIAL 0.5 GRAMS IV (11:15)
[2024-03-18] MEDS: STERILE WATER FOR INJECTION 18 ML IV (11:16)
[2024-03-18 11:53] LABS: Glucose - Point of Care 105 mg/dl (70-99)
--- NOTE | 2024-03-18 13:41 | W.PN.CD ---
Today's Communication / Plan
-
- Rate control
- Metabolic neuropathy / uremic syndrome - Nephrology evaluation
- Diuresis if possible.
Impression / Plan
-
IMPRESSION/PLAN: 78M with coronary artery disease (LCx PCI with LAD disease unamenable to PCI), hypertension, dyslipidemia, RCC status post nephrectomy, chronic kidney disease, prostate cancer, multiple hemorrhagic strokes (attributed to
chemotherapy while being treated for RCC), hypothyroidism, and former smoker presented to the emergency department with a chief complaint of a fall.
Outpatient mercantile reporter: Dr. Petty at
Altered mental status
- fluctuating mental status.
- Hx of strokes in the past. Discussed with his - has a hx of hemorrhagic strokes in
- head CT showed no bleeding
- In atrial flutter with RVR. Needs anticoagulation with high suspicion for AF. Discussed with and is in agreement to start Heparin. Heparin started on 03/17/24
- Uremic with renal failure.
Atrial flutter
- RVR since admission - 130s to 140s bpm
- IV metoprolol ineffective and caused hypotension
- Stop PO metoprolol and start IV diltiazem drip
- IV amiodarone bolus given with difficult to control rates.
- Given severe renal failure, not a candidate for Digoxin unless really needed - ok for a single dose - very long half life with renal failure .
- If rate control is poor then can start AMiodarone gtt for better rate control
Shortness of breath, likely in the setting of acute heart failure
-Volume overloaded on exam
-V/Q: Low probability
-Lower extremity ultrasound pending
HFrEF (EF 30%), acute
- ECHO 03/16/24 - LVEF 25-30%
- Could be related to sustained tachcyardia.
-Outpatient cardiology notes does not have any documented recent LVEF
-Diuresis, start with furosemide 80 mg IV x 1 now, this requires intensive monitoring
-He may need either a furosemide or bumetanide drip, this will be under the direction of nephrology given his DESTINEE
-GDMT is limited with his DESTINEE
-Trend daily weight, I/O, and BMP with diuresis
-Heart failure education
Abnormal troponin, likely Type II RI
-Chest pain-free
-Initial troponin 2.060, trend
-Start heparin, continue ASA
CAD
-PCIs: LCx 2018 with severe diffuse LAD disease not amenable to revascularization
-He had an NSTEMI, type II RI, following his radical nephrectomy
-Continue ASA
DESTINEE on CKD
-Per outpatient soda fountain clerk, baseline creatinine about 3, currently 5.0
-Follows with Dr. Naa Castillo
-Nephrology consulted by primary service
RBBB, LAFB, chronic
NSVT, per outpatient cardiology note, follow telemetry
HLD, on atorvastatin
RCC status post nephrectomy (right) with metastasis to right adrenal, left adrenal, and right lung - managed by [facility]
Prostate cancer status post XRT
CVA, hemorrhagic, possibly related to Pazopanib during chemotherapy (2013)
NIDDM with retinopathy and proteinuria, diabetes managed by Dr. Camacho
Hypothyroidism on levothyroxine
Former smoker, continue cessation recommended
Physical Exam
Vital Signs/Labs
Vital Signs
Temp Pulse Resp BP Pulse Ox
98.2 F 99 17 110/88 97
03/18/24 11:19 03/18/24 11:12 03/18/24 06:00 03/18/24 11:12 03/18/24 07:51
03/17/24 03/18/24 03/19/24
06:59 06:59 06:59
Actual Weight 84.7 kg 80.3 kg
03/18/24 03:46
APTT 52.0 Sec (23.4-35.0) H 03/18/24 09:42
Magnesium 2.6 mg/dl (1.6-2.3) H 03/17/24 04:14
03/16/24
13:57
Cio-X-Ohzuivbhkwu Pept > 31233
LAB Results
03/16/24 03/16/24 03/17/24
13:57 18:12 04:14
Troponin I 2.060 H* 2.830 H* D 4.730 H*
03/17/24 03/17/24 03/18/24
15:30 21:54 03:46
Troponin I 4.500 H* 4.410 H* Cancelled
03/18/24 03/18/24
03:46 09:42
Troponin I 4.040 H* 4.580 H*
Physical Exam
Constitutional: No acute distress
EENT: Anicteric and Moist mucous membranes
Cardiovascular: JVD pressure is normal, Rhythm/rate is irregular, Pedal edema present and Systolic murmur present
Respiratory: Crackles Present and Rhonchi Present
GI: Soft and Normal bowel sounds
Neuro/Psych: Other (confused. )
Data Reviewed
-
Date of Service: March 18, 2024
Medical Decision Making: Reviewed Test Results
EKG: Tracing Personally Visualized and interpreted
Echo: Report Reviewed by me
Labs: Labs Reviewed by me
Old Records: Reviewed
Critical Care Time (in minutes): 35
--- NOTE | 2024-03-18 15:41 | W.PN.UPDATE ---
Update Note
Progress Note Update
MRI of brain demonstrates the above disastrous bihemispheric acute ischemic strokes, most likely secondary to the patient's atrial fibrillation. Patient was not a candidate for either tenecteplase or intra-arterial thrombectomy due to timeframe out
of window and the large size of areas involved.
Prognosis for meaningful neurological recovery where the patient is able to provide self-care, is low.
Patient should have discontinuance of anticoagulation despite presence of atrial fibrillation for the next 48 hours, then may restart 2 days after discovery of this finding. Would avoid heparin boluses if heparin is planned to be utilized.
Will follow as needed.
[2024-03-18] MEDS: LOPRESSOR 2.5 MG IV (15:52)
--- NOTE | 2024-03-18 16:33 | CM ---
Initial assessment completed with pts via phone.
Pt and live in a 1 level condo with 1 step to enter.
Pt has memory deficits and requires aide with bathing and other ADLs.
Pt does have private caregiver 2-3x weekly.
Pt uses a RW within the condo and a wheelchair when out.
Other equipment includes a RW, w/c, shower chair, and comfort height toilet with bars.
does all his meals and meds.
was provided with Medicare.gov resource to look at possible SNF options as she needs more help.
notes that the family is talking about plan of care. Dialysis was discussed though not sure if they will move forward. is agreeable to [facility] referrals once PT sees pt and healthcare decisions are made.
PCP; Maurisio Lizama
Pharm; [facility]; [facility]
PLAN; SNF; [facility] or [facility] 1st choice.
[2024-03-18] MEDS: LIPITOR PO (16:58)
[2024-03-18 17:17] LABS: Glucose - Point of Care 130 mg/dl (70-99)
[2024-03-18 18:32] LABS: APTT 68.5 Sec (23.4-35.0)
[2024-03-18 18:34] LABS: Ammonia 10 umol/L (9-30)
--- NOTE | 2024-03-18 18:34 | PTCARENOTE ---
Assumed cares of patient 1600hrs. Updated assessment, vital sign trends and ongoing lab trends as ordered. Update with at bedside and daughter via phone. Family reconfirmed dnr status. Family also stating having hard time deciding about
[place]/feeding tube, Hemodialysis plan and ongoing deterioration of mental status. Expressing some concerns related to pain pain or discomfort. Follow up drip titration, heparin, cardizem protocol and evaluation. Continue emotional support,
teaching and supportive cares.
[2024-03-18 18:58] LABS: Blood Urea Nitrogen 85 mg/dl (9-20); Calcium 8.3 mg/dl (8.4-10.2); Carbon Dioxide 16 mmol/L (22-30); Chloride 105 mmol/L (98-107); Estimated Creatinine Clearance 10 ml/min; Glucose 150 mg/dl (70-99); Potassium 5.6 mmol/L (3.5-5.1); Sodium 137 mmol/L (135-145); eGFR 8.92
--- NOTE | 2024-03-18 19:22 | W.PN.UPDATE ---
Update Note
Progress Note Update
Updated Dr. Butts, spline rolling machine job setter about K result of 5.6. Recommendations received lasix 80mg IV and 1 amp bicarb, repeat labs in the morning. Orders placed and RN updated.
[2024-03-18] MEDS: LASIX 80 MG IV (19:46)
[2024-03-19] VITALS (25 sets, daily range): BP systolic 80–124; BP diastolic 49–88; BMI 28.9
--- NOTE | 2024-03-19 | PTCARENOTE ---
All systems reassessed. No current change in status. Medications administered.
[2024-03-19 00:21] LABS: Glucose - Point of Care 147 mg/dl (70-99)
[2024-03-19] MEDS: ZOSYN 50 IV ×4 (01:05→19:52)
[2024-03-19] MEDS: CARDIZEM 125 IV ×2 (03:30→18:35)
[2024-03-19 03:34] LABS: % Basophils 0.1 % (0-2); % Eosinophils 0.2 % (0-6); % Immature Granulocytes 0.4 % (0-0.5); % Lymphocytes 6.6 % (20.5-51.1); % Monocytes 6.2 % (1.7-9.3); % Neutrophils 86.5 % (42.2-75.2); Absolute Lymphocytes 0.6 10^3/uL (1.2-3.4); Absolute Monocytes 0.5 10^3/uL (0.1-0.6); Absolute Neutrophils 7.2 10^3/uL (1.4-6.5); Hematocrit 33.1 % (39.0-52.0); Hemoglobin 10.8 g/dL (13.0-18.0); Mean Corp Hgb Conc. 32.6 g/dL (33.0-37.0); Mean Corpuscular Hgb 29.2 pg (27.0-31.0); Mean Corpuscular Volume 89.5 fL (80.0-94.0); Nucleated Red Blood Cells % 0 % (-); Platelet Count 213 10^3/uL (130-400); Red Cell Dist. Width 17.2 % (11.5-14.5); White Blood Cell Count 8.3 10^3/uL (4.8-10.8)
--- NOTE | 2024-03-19 05:30 | PTCARENOTE ---
All systems reassessed, labs drawn, hygiene performed.
[2024-03-19 06:07] LABS: Glucose - Point of Care 127 mg/dl (70-99)
[2024-03-19 06:39] LABS: ALT (SGPT) 19 U/L (0-50); AST (SGOT) 23 U/L (17-59); Alkaline Phosphatase 93 U/L (38-126); Blood Urea Nitrogen 94 mg/dl (9-20); Calcium 8.3 mg/dl (8.4-10.2); Carbon Dioxide 20 mmol/L (22-30); Chloride 104 mmol/L (98-107); Estimated Creatinine Clearance 9 ml/min; Glucose 140 mg/dl (70-99); Sodium 139 mmol/L (135-145); Total Bilirubin 1.7 mg/dl (0.2-1.3); Total Protein 5.9 g/dl (6.3-8.2); eGFR 8.74
--- NOTE | 2024-03-19 07:41 | W.PN.HOSP.TC ---
Addendum entered and electronically signed by Mehdi Ivy MD 03/19/24 15:50:
Seen and examined by me independently in collaboration with the medical device sales representative.
Lab data and imaging data reviewed.
Addendum as below :
Patient alert. Speech is dysarthric. He has persistent of left sided hemiplegia. Failed speech eval.
Patient with significant stroke event in poor prognosis of neurological recovery and top of organ dysfunction in the form of acute kidney injury on chronic study stage IV and no hemodialysis planned based on his wishes.
He also was diagnosed to have new cardiomyopathy with EF of 30% and atrial fibrillation.
I hear that is looking to address goals of care.
Left a message to on her cell phone.
DW PEDIATRIC AUDIOLOGIST
Total time spent on today's encounter was 52 minutes which included time spent in counseling the patient/family regarding diagnosis and treatment plan as listed above, goals of care, and symptom management. Case was discussed with nursing staff,
specialists, and care coordinators/case management. All labs and imaging personally reviewed by me. Remainder the time spent in detailed review of previous records, lab data, imaging, and other medical provider documentation.
Original Note:
Today's Communication/Plan
-
lasix 80mg IV
family considering comfort measures
Patient refused dialysis and family refused any tubes for medications
Assessment / Plan
Assessment / Plan
78-year-old male with history of stage IV renal cancer s/p right nephrectomy, stage III prostate cancer s/p radiation therapy, history of previous mets in the lung which reportedly resolved- followed by [facility], 3 CVA currently not on
anticoagulation given history of recurrent falls, hypertension, hypercholesterolemia, diabetes type 2, hypothyroidism, BPH, CAD s/p cardiac stent presented with altered mental status and shortness of breath.
# DESTINEE on CKD stage IV with hyperkalemia and metabolic acidosis
-Creatinine 6.1 today (reviewed lab work from January 2024 on the phone creatinine 2.98); creeping up; patient refusing dialysis
-Nephro consulted(per patient was informed by outpatient motion picture actor he might need dialysis)
-Volume overloaded on exam on day of arrival
-VQ scan:-low probability for PE
-1 dose of Iv lasix 80mg on 03/16/24
-fraser placement
-hold aleve and lisinopril
-1 dose of 120mg lasix and 1 dose of diuril 0.5 on 03/18
-additional dose of lasix 80mg today per nephro 03/19
-CRRT on hold given family is considering comfort care
# Acute hypoxic respiratory insufficiency, #SOB
Likely secondary to heart failure, pleural effusion.
-CT chest:Moderate right pleural effusion with right lower lobe 'consolidation' with air bronchograms. Findings could represent atelectasis and/or pneumonia. Right lower lobe mass cannot be excluded.
Small left pleural effusion with accompanying left lower lobe subsegmental atelectasis.
Coronary artery calcifications,No pneumothorax.
- fluid studies ordered; cytology to rule out malignant pleural effusion;history of metastatic RCC
repeat cxr: Opacification in the right mid to lower lung, possibly slightly increased with known right lower lobe consolidation and moderate right pleural effusion seen on Chest CT of preceding day.
- s/p pleural tap 1250ml
# TME likely secondary to above
03/16/24 CT head:No acute intracranial abnormalities,Old lacunar infarct again suggested in the right internal capsule.
03/18/24 Brain MRI: Large acute infarct in the right middle cerebral artery distribution.Moderate acute infarct in the left parietal lobe.
#Altered mental status
-continue zosyn
-anti psychotic not recommended with prolong qtc
- neurology on board; heparin on hold for 48 hrs
- Patient not cleared by Speech for Po, family refused the tube.
# HFrEF
# a fib
#tachycardia
-denies chest pain
-proBNP >47688
- daily weight
-cardizem drip to metoprolol by cardio
-amiodarone one dose by cardio 03/18
NSR in the Am today
#type 2 CO
trop elevated
continue asa, hold metoprolol
heparin on hold now given the new stroke on brain mri
# CAD
-s/p cardiac stenting
-continue asa, atorvastatin and hold metoprolol
# Essential hypertension
-hold amlodipine 5 mg
-hold metoprolol; order for prn use
-Hold lisinopril
# History of CVA; while on biologic for RCC
-Continue ASA via tube
# Nzm-oxnhbeh-nligxnwjj diabetes mellitus
-hold home repaglinide(lower dose 1mg)
-hold home pioglitazone
-ssc
# BPH
-Continue home tamsulosin
-Continue home finasteride
#Chronic anemia
#Stage IV right renal cancer-s/p nephrectomy
#Stage III prostate cancer-status post radiation therapy
#Hypercholesterolemia-continue atorvastatin
#Hypothyroidism-continue levothyroxine
# Ambulatory dysfunction-uses a walker and electric scooter outside the home
DVT proph:SCD
code: DNR
Anticipated Discharge: > 48 hours
Subjective/Interval History
-
Date of Service: March 19, 2024
offers no new complains.
Objective Data
-
Labs:
Laboratory Results
03/19/24 03/19/24
03:15 05:58
WBC 8.3
Hgb 10.8 L
Hct 33.1 L
Plt Count 213
Sodium Cancelled 139
Potassium Cancelled 5.0
Chloride Cancelled 104
Carbon Dioxide Cancelled 20 L
BUN Cancelled 94 H
Creatinine Cancelled 6.1 H*
Glucose Cancelled 140 H
Calcium Cancelled 8.3 L
Total Bilirubin Cancelled 1.7 H
AST Cancelled 23
ALT Cancelled 19
Alkaline Phosphatase Cancelled 93
Vital Signs:
Vital Signs
Temp Pulse Resp BP Pulse Ox
97.5 F 86 19 102/56 100
03/19/24 07:33 03/19/24 06:00 03/19/24 06:00 03/19/24 06:00 03/19/24 06:00
I&O
03/18/24 03/19/24 03/20/24
06:59 06:59 06:59
Intake Total 690 / 690 460 / 460
Output Total 850 / 850 1220 / 1220
Balance -160 / -160 -760 / -760
Review of Systems
-
History Source: Patient
Respiratory: Denies Trouble Breathing
Cardiac: Denies Chest Pain
Abdomen/GI: Denies Abdominal Pain, Nausea or Vomiting
Neuro: Denies Headache
Hematologic / Lymphatic: Denies Bleeding
Physical Exam
-
General: Comfortable, Appears Chronically Ill and Obese
Respiratory: Decreased Breath Sounds
Cardiac: S1/S2 and Tachycardic
GI: Soft and Nontender
Skin: Warm and Dry
Neuro: Awake, Alert and Oriented
Psych: Agitated
Data Reviewed
-
Labs: Labs Reviewed by me, Discussed with Physician and Discussed with Patient
--- NOTE | 2024-03-19 07:56 | W.PN.NEPH.PH ---
Today's Communication / Plan
-
Family will likely be going towards comfort care as per discussion with nurse
We will hold off CRRT
Will provide 80 mg IV Lasix
Assessment/Plan
-
IMP:
DESTINEE on CKD stage IV-baseline GFR 20, cr 2.98-Oct Dr Castillo at [place]
Mild hyperkalemia
Non gap metabolic acidosis
TME
Acute hypoxic respiratory insufficiency,
Moderate right pleural effusion with right lower lobe 'consolidation' with air bronchograms. Findings could represent atelectasis and/or pneumonia. Right lower lobe mass cannot be excluded on CT.
Acute HFrEF 30%
s/p right thoracentesis of 1.2lit 03/17
Atrial flutter with RVR
Type 2 FL
trop elevation
CAD-s/p stenting
Essential hypertension
History of CVA
Chronic anemia
Stage IV right renal cancer-s/p nephrectomy
Stage III prostate cancer-status post radiation therapy
Hypercholesterolemia
Hypothyroidism
Ambulatory dysfunction
Bihemispheric acute ischemic stroke
Plan:
A/w AMS, SOB
DESTINEE worsening with creatinine up to 6.1, BUN rising to 94
Remains nonoliguric with Lasix
Highly suspect cardiorenal in etiology versus progressive CKD, UA relatively bland
Remains hemodynamically unstable
Renal ultrasound with the possible mild left hydronephrosis, continue Fraser catheter
lasix 80mg IV provided
He has atrial tachycardia, currently on cardizm gtt, was on metoprolol
Echo report revealed EF 30%, heparin gtt
hyperkalemia-Lokelma one enteral route established , cont diuresis
Monitor metabolic acidosis and prn IV pushes of bicarb, since NPO
likely need HD in next 24-48hrs
AMS -neuro follows, CT head neg, need eventual MRI, uremia is in differential
Antibiotics per primary
Case previous discussed with the on the phone in detail, understands potential need of dialysis the next 24-48 hours
based on hemodynamics he may need CRRT
As per discussion with nursing family is leaning towards comfort care
Avoid nephrotoxins, hold lisinopril
Following patient's acute stroke due to multiple comorbidities patient is not an appropriate candidate for renal replacement therapy as he does not have a positive prognosis
If family forces us to be aggressive we will have to initiate CRRT
Patient is critically ill with hemodynamic instability an worsening renal failure, 32 minutes critical care time spent with patient
-
-
Date of Service: March 19, 2024
CC / HPI / ROS
-
Chief Complaint:
DESTINEE with CKD
History of Present Illness:
cr up at 6, BUN 94, only 1200cc over night with fraser
Hyperkalemia remains problematic
Bp soft, afib with RVR on cardizem gtt, s/p 1 dose Amio
s/p thoracentesis of 1.2lit 03/17
Review of Systems:
remains altered, semi supine on bed on 2 lit of O2
no fever
Nonoliguric via Fraser
Labs
-
Labs:
WBC 8.3 10^3/uL (4.8-10.8) 03/19/24 03:15
RBC 3.70 10^6/uL (4.70-6.10) L 03/19/24 03:15
Hgb 10.8 g/dL (13.0-18.0) L 03/19/24 03:15
Hct 33.1 % (39.0-52.0) L 03/19/24 03:15
Plt Count 213 10^3/uL (130-400) 03/19/24 03:15
Sodium 139 mmol/L (135-145) 03/19/24 05:58
Potassium 5.0 mmol/L (3.5-5.1) 03/19/24 05:58
Chloride 104 mmol/L (98-107) 03/19/24 05:58
Carbon Dioxide 20 mmol/L (22-30) L 03/19/24 05:58
BUN 94 mg/dl (9-20) H 03/19/24 05:58
Creatinine 6.1 mg/dL (0.7-1.3) H* 03/19/24 05:58
eGFR 8.74 03/19/24 05:58
Glucose 140 mg/dl (70-99) H 03/19/24 05:58
Calcium 8.3 mg/dl (8.4-10.2) L 03/19/24 05:58
Ulp-S-Prjiqrwtejx Pept > 04487 pg/ml 03/16/24 13:57
Albumin 3.0 g/dl (3.5-5.0) L 03/19/24 05:58
Physical Exam
-
Vital Signs:
Vital Signs
Temp Pulse Resp BP Pulse Ox
97.5 F 86 19 102/56 100
03/19/24 07:33 03/19/24 06:00 03/19/24 06:00 03/19/24 06:00 03/19/24 06:00
Cardiovascular:: Irregular rate and rhythm
Respiratory:: Bilateral: Coarse
Lung Excursion:: Abnormal (decreased)
Abdomen:: Nontender and Soft
Extremity Edema:: +1: Bilateral: (trace)
Fraser Catheter: Yes
--- NOTE | 2024-03-19 09:19 | W.PN.CD ---
Today's Communication / Plan
-
holding AC due to massive stroke
eliquis on 03/20 based on goals of care
transition diltiazem drip to metoprolol based on goals of care
Impression / Plan
-
IMPRESSION/PLAN: 78M with coronary artery disease (LCx PCI with LAD disease unamenable to PCI), hypertension, dyslipidemia, RCC status post nephrectomy, chronic kidney disease, prostate cancer, multiple hemorrhagic strokes (attributed to
chemotherapy while being treated for RCC), hypothyroidism, and former smoker presented to the emergency department with a chief complaint of a fall.
Outpatient ward assistant: Dr. Petty at
Altered mental status
- neurology communication reviewed: massive stroke (detailed update note 03/18)
- no AC at this time: could start eliquis 03/20 if in line with goals of care, but family may pursue comfort care
Atrial flutter, typical, paroxysmal
- continue diltiazem drip
-CHADS2-VASC = 7. AC plan as above
HFrEF (EF 25-30%), acute
- ECHO 03/16/24 - LVEF 25-30%
- Could be related to sustained tachycardia.
-Outpatient cardiology notes does not have any documented recent LVEF
-GDMT is limited with his DESTINEE
-will transition IV diltiazem to metoprolol, based on goal of care
-not currently taking PO
-lasix dosed by nephrology in setting of acute renal failure
-high risk situation with close monitoring of labs
Abnormal troponin, likely Type II VA
-Chest pain-free
-continue ASA
CAD
-PCIs: LCx 2018 with severe diffuse LAD disease not amenable to revascularization
-He had an NSTEMI, type II VA, following his radical nephrectomy
-Continue ASA
Acute renal failure
-per nephrology
RBBB, LAFB, chronic
NSVT, per outpatient cardiology note, follow telemetry
HLD, on atorvastatin
RCC status post nephrectomy (right) with metastasis to right adrenal, left adrenal, and right lung - managed by [facility] [place]
Prostate cancer status post XRT
CVA, hemorrhagic, possibly related to Pazopanib during chemotherapy (2013)
NIDDM with retinopathy and proteinuria, diabetes managed by Dr. Camacho
Hypothyroidism on levothyroxine
Former smoker, continue cessation recommended
Physical Exam
Vital Signs/Labs
Vital Signs
Temp Pulse Resp BP Pulse Ox
97.5 F 102 18 104/58 99
03/19/24 07:33 03/19/24 08:00 03/19/24 08:00 03/19/24 08:00 03/19/24 08:00
03/18/24 03/19/24 03/20/24
06:59 06:59 06:59
Actual Weight 80.3 kg 78.7 kg
03/19/24 03:15
03/19/24 05:58
APTT 68.5 Sec (23.4-35.0) H 03/18/24 18:14
Magnesium 2.6 mg/dl (1.6-2.3) H 03/17/24 04:14
03/16/24
13:57
Crn-Q-Ffuqketklij Pept > 54453
LAB Results
03/16/24 03/16/24 03/17/24
13:57 18:12 04:14
Troponin I 2.060 H* 2.830 H* D 4.730 H*
03/17/24 03/17/24 03/18/24
15:30 21:54 03:46
Troponin I 4.500 H* 4.410 H* Cancelled
03/18/24 03/18/24
03:46 09:42
Troponin I 4.040 H* 4.580 H*
Physical Exam
Constitutional: No acute distress
EENT: Moist mucous membranes
Cardiovascular: Rhythm & rate is regular, Pedal edema present, JVD present and Systolic murmur present
Respiratory: Respiratory effort normal
Neuro/Psych: Other (lethargic)
Data Reviewed
-
Date of Service: March 19, 2024
EKG: Other (Tele: SR with paroxysmal atrial flutter)
Labs: Labs Reviewed by me
[2024-03-19] MEDS: FLOMAX PO (10:35)
--- NOTE | 2024-03-19 10:35 | PTOTSP ---
Speech Therapy Evaluation:
Pt exhibits clinical signs of oropharyngeal dysphagia, likely chronic in nature related to hx of CVA x3, compounded by waxing/waning mentation and moderate-large acute infarcts in R MCA and L parietal lobe. Pt remains at an increased risk of
aspiration given role of R MCA in swallowing in regards to motor control, sensory integration, and coordination of swallow movements. Pt with oral stage impairments as demonstrated by intermittent anterior loss, decreased oral coordination, and
segmented transfers. 1x immediate cough on 1st trial of thin liquids via tsp, however no prior or subsequent s/sx across PO trials.
Recommend:
1. Continue NPO
2. Meds non-oral
3. Initiate ARHP via ice chips/sips of water with 1:1 SPV by nursing
4. Oral care 3x/daily
5. ST to follow
--- NOTE | 2024-03-19 11:31 | PTCARENOTE ---
Pt rec'd 07:15 from previous RN AOx2-3, speech extremely garbled and dysarthric, oral care provided, suctioned for small amount thick valdez sputum. NIHSS performed, see worklist. Pt flipped from afib in 80-100s to sinus rhythm on tele, HR dropped to
50s. Cardizem gtt tapered down as per protocol, weaned off at 10:45. Drs. Mace and Biju aware. Right hand PIV flushed and pt c/o pain, removed by this RN. Pt turned and positioned, cleaned for large soft valdez BM. CHG wipes and fraser care provided.
Speech therapist in room to eval patient. Plan discussed with attending and resident. Safe environment maintained.
[2024-03-19] MEDS: LOPRESSOR 2.5 MG IV ×2 (12:14→18:36)
[2024-03-19] MEDS: LASIX 80 MG IV (12:15)
--- NOTE | 2024-03-19 12:17 | PTCARENOTE ---
Addendum entered by Luis Mitchell RN 03/19/24 14:18:
13:15-Cardizem gtt restarted at 5 mg/hr per earth science laboratory technician for HR sustained in 130s.
Original Note:
HR sustaining 133 on tele, sinus tach on tele. PRN 2.5 mg Lopressor given per order.
[2024-03-19 13:18] LABS: Glucose - Point of Care 118 mg/dl (70-99)
--- NOTE | 2024-03-19 15:48 | CM ---
CM following re: discharge planning.
Reviewed pt's chart, met with pt.
Per chart review, family considering comfort measure, patient refused dialysis and family refused any tubes for medications.
D/C plan: pt and family is considering comfort care
CM will follow with discharge plan updates as hospitalization progresses
--- NOTE | 2024-03-19 16:10 | PTCARENOTE ---
Pt reassessed. Continues with ST in 130s, cardizem gtt titrated per protocol. See flowsheet. Q2T provided.
--- NOTE | 2024-03-19 17:29 | PTCARENOTE ---
Pt remains in sinus tach in 130s. Cardizem titrated to 15 mg/hr and PRN Lopressor administered-see flowsheet. Pt has had several episodes of apparent apnea where his sa02 significantly and abrubtly drops, but quickly rebounds when awakened and asked
to take deep breaths. Safe environment maintained.
[2024-03-19 17:53] LABS: Glucose - Point of Care 114 mg/dl (70-99)
[2024-03-19] MEDS: LIPITOR PO (17:58)
--- NOTE | 2024-03-19 18:01 | PTCARENOTE ---
arrived at bedside, Dr. Ivy and resident notified and arrived in room to update/discuss plan of care.
--- NOTE | 2024-03-19 18:16 | W.PN.UPDATE ---
Update Note
Progress Note Update
Spoke with the , discussed goals of care in length. conveyed Mr. Forbes's wishes. She verified understanding. Family considering Hospice; will talk to rest of the family before making final decision. Hospice consult placed for more
education.
--- NOTE | 2024-03-19 20:00 | PTCARENOTE ---
artificial flowers starcher, pt oriented x 2, Neuro doc per work list, B/L IV WNL- Cardizem gtt at 15mg/hr. RA Sat 98%. Heard draining clear yellow. mouth care done. repositioned.
--- NOTE | 2024-03-19 20:24 | PTCARENOTE ---
pt HR sustained ST low 130s, prn lopressor last given 1835, Cardizem gtt currently maxed, BDoughertyNP aware, no new orders- pt BP 99/77- will reassess next BP to determine additional chief digital media officer per [employer] COMMISSIONER.
[2024-03-19 23:59] LABS: Glucose - Point of Care 121 mg/dl (70-99)
[2024-03-20] VITALS (15 sets, daily range): BP systolic 106–138; BP diastolic 59–103; BMI 28.2
[2024-03-20] MEDS: ZOSYN 50 IV ×3 (02:23→15:56)
[2024-03-20] MEDS: CARDIZEM 125 IV ×3 (03:00→19:30)
[2024-03-20] MEDS: LOPRESSOR 2.5 MG IV ×2 (05:04→09:00)
[2024-03-20 05:27] LABS: Hematocrit 37.7 % (39.0-52.0); Hemoglobin 12.3 g/dL (13.0-18.0); Mean Corp Hgb Conc. 32.6 g/dL (33.0-37.0); Mean Corpuscular Hgb 28.8 pg (27.0-31.0); Mean Corpuscular Volume 88.3 fL (80.0-94.0); Mean Platelet Volume 10.4 fL (7.4-10.4); Platelet Count 246 10^3/uL (130-400); Red Blood Cell Count 4.27 10^6/uL (4.70-6.10); Red Cell Dist. Width 17.1 % (11.5-14.5); White Blood Cell Count 9.9 10^3/uL (4.8-10.8)
[2024-03-20 06:06] LABS: ALT (SGPT) 19 U/L (0-50); AST (SGOT) 22 U/L (17-59); Albumin 3.6 g/dl (3.5-5.0); Alkaline Phosphatase 104 U/L (38-126); Blood Urea Nitrogen 97 mg/dl (9-20); Carbon Dioxide 21 mmol/L (22-30); Chloride 101 mmol/L (98-107); Estimated Creatinine Clearance 8 ml/min; Glucose 126 mg/dl (70-99); Potassium 4.7 mmol/L (3.5-5.1); Sodium 143 mmol/L (135-145); Total Bilirubin 1.9 mg/dl (0.2-1.3); Total Protein 6.6 g/dl (6.3-8.2)
--- NOTE | 2024-03-20 07:19 | W.PN.HOSP.TC ---
Addendum entered and electronically signed by Mehdi Ivy MD 03/20/24 15:11:
Seen and examined by me independently in collaboration with the medical insurance clerk.
Lab data and imaging data reviewed.
Addendum as below :
Patient is alert and minimally conversive. Does not seems to be oriented.
Remains dysarthric. Unclear if is aphasic. It starts of answering the question but stops in track and no further responses.
Afebrile blood pressure stable but he is in rapid A-fib. Ongoing IV Cardizem for rate control.
Remains with left-sided hemiplegia.
Worsening creatinine with met acidosis.
patient with organ dysfunction in the form of worsening renal failure and new cardiomyopathy. Also new stroke with the significant deficit. Patient with a prior cancer history as below.
Prognosis is poor with multiorgan failure and other comorbidities.
See the discussions with yesterday regarding goals of care and she is exploring hospice.
wanted to hold till Tuesday so that his daughter could see him in person and make decisions regarding goals of care. Remains DNR.
Total time spent on today's encounter was 52 minutes which included time spent in counseling the patient/family regarding diagnosis and treatment plan as listed above, goals of care, and symptom management. Case was discussed with nursing staff,
specialists, and care coordinators/case management. All labs and imaging personally reviewed by me. Remainder the time spent in detailed review of previous records, lab data, imaging, and other medical provider documentation.
Original Note:
Today's Communication/Plan
-
Family considering hospice
hospice consult for more education
per they ll make decision tomorrow
Assessment / Plan
Assessment / Plan
78-year-old male with history of stage IV renal cancer s/p right nephrectomy, stage III prostate cancer s/p radiation therapy, history of previous mets in the lung which reportedly resolved- followed by [facility], 3 CVA currently not on
anticoagulation given history of recurrent falls, hypertension, hypercholesterolemia, diabetes type 2, hypothyroidism, BPH, CAD s/p cardiac stent presented with altered mental status and shortness of breath.
# DESTINEE on CKD stage IV with hyperkalemia and metabolic acidosis
-Creatinine 6.5 today (reviewed lab work from January 2024 on the phone creatinine 2.98); worsening; patient refusing dialysis
-Nephro consulted(per patient was informed by outpatient powder core tester he might need dialysis)
-Volume overloaded on exam on day of arrival
-VQ scan:-low probability for PE
-1 dose of Iv lasix 80mg on 03/16/24
-fraser placement
-hold aleve and lisinopril
-1 dose of 120mg lasix and 1 dose of diuril 0.5 on 03/18
-additional dose of lasix 80mg today per nephro 03/19
-CRRT on hold given family is considering comfort care
-hold lasix per nephro today
# Acute hypoxic respiratory insufficiency, #SOB
Likely secondary to heart failure, pleural effusion.
-CT chest:Moderate right pleural effusion with right lower lobe 'consolidation' with air bronchograms. Findings could represent atelectasis and/or pneumonia. Right lower lobe mass cannot be excluded.
Small left pleural effusion with accompanying left lower lobe subsegmental atelectasis.
Coronary artery calcifications,No pneumothorax.
- fluid studies ordered; cytology to rule out malignant pleural effusion;history of metastatic RCC
repeat cxr: Opacification in the right mid to lower lung, possibly slightly increased with known right lower lobe consolidation and moderate right pleural effusion seen on Chest CT of preceding day.
- s/p pleural tap 1250ml
# TME likely secondary to above/below
03/16/24 CT head:No acute intracranial abnormalities,Old lacunar infarct again suggested in the right internal capsule.
03/18/24 Brain MRI: Large acute infarct in the right middle cerebral artery distribution.Moderate acute infarct in the left parietal lobe.
#Altered mental status
-continue zosyn
-anti psychotic not recommended with prolong qtc
- neurology on board; heparin on hold for 48 hrs
- Patient not cleared by Speech for Po, family refused the tube.
# HFrEF
# a fib
#tachycardia
-denies chest pain
-proBNP >66553
- daily weight
-cardizem drip continue and prn metoprolol by cardio
-amiodarone one dose by cardio 03/18
#type 2 CA
trop elevated
heparin on hold now given the new stroke on brain mri
# CAD
-s/p cardiac stenting
-no po intake and family refused tube
-can use asa, atorvastatin if tube established and hold metoprolol
# Essential hypertension
-hold amlodipine 5 mg
-hold metoprolol; order for prn use
-Hold lisinopril
# History of CVA; while on biologic for RCC
-unable to take ASA po and family refused tube
# Egk-bfcjvwi-fzgrntjjb diabetes mellitus; on hold; no po intake
-hold home repaglinide(lower dose 1mg)
-hold home pioglitazone
-ssc
# BPH
- no po intake; family refused tube
- home tamsulosin
- home finasteride
#Chronic anemia
#Stage IV right renal cancer-s/p nephrectomy
#Stage III prostate cancer-status post radiation therapy
#Hypercholesterolemia-no po intake; no tube established, uses atorvastatin at home
#Hypothyroidism-IV levothyroxine
# Ambulatory dysfunction-uses a walker and electric scooter outside the home
DVT proph:SCD
code: DNR
Anticipated Discharge: 24 - 48 hours
Subjective/Interval History
-
Date of Service: March 20, 2024
No new complaints
Objective Data
-
Labs:
Laboratory Results
03/20/24
04:56
WBC 9.9
Hgb 12.3 L
Hct 37.7 L
Plt Count 246
Sodium 143
Potassium 4.7
Chloride 101
Carbon Dioxide 21 L
BUN 97 H
Creatinine 6.5 H*
Glucose 126 H
Calcium 9.0
Total Bilirubin 1.9 H
AST 22
ALT 19
Alkaline Phosphatase 104
Vital Signs:
Vital Signs
Temp Pulse Resp BP Pulse Ox
97.7 F 114 19 106/72 96
03/20/24 04:00 03/20/24 06:00 03/20/24 06:00 03/20/24 06:00 03/20/24 06:00
I&O
03/19/24 03/20/24 03/21/24
06:59 06:59 06:59
Intake Total 460 / 460 315 / 315
Output Total 1220 / 1220 1850 / 1850
Balance -760 / -760 -1535 / -1535
Review of Systems
-
History Source: Patient
Respiratory: Denies Trouble Breathing
Cardiac: Denies Chest Pain
Abdomen/GI: Denies Abdominal Pain, Nausea or Vomiting
Neuro: Denies Headache
Hematologic / Lymphatic: Denies Bleeding
Psych: Reports Other (confused)
Physical Exam
-
General: Appears Chronically Ill and Obese
Respiratory: Decreased Breath Sounds
Cardiac: S1/S2 and Tachycardic
GI: Soft and Nontender
Skin: Warm and Dry
Neuro: Awake
Psych: Confused and Agitated
Data Reviewed
-
Labs: Labs Reviewed by me, Discussed with Physician and Discussed with Patient
--- NOTE | 2024-03-20 08:07 | W.PN.NEPH.PH ---
Today's Communication / Plan
-
creatinine worsening
family to decide on hospice
non oliguric
weights down, no significant po intake (holding lasix today)
AFIB with RVR
Assessment/Plan
-
IMP:
DESTINEE on CKD stage IV-baseline GFR 20, cr 2.98-Oct Dr Castillo at [facility]
Mild hyperkalemia
Non gap metabolic acidosis
TME
Acute hypoxic respiratory insufficiency,
Moderate right pleural effusion with right lower lobe 'consolidation' with air bronchograms. Findings could represent atelectasis and/or pneumonia. Right lower lobe mass cannot be excluded on CT.
Acute HFrEF 30%
s/p right thoracentesis of 1.2lit 03/17
Atrial flutter with RVR
Type 2 NJ
trop elevation
CAD-s/p stenting
Essential hypertension
History of CVA
Chronic anemia
Stage IV right renal cancer-s/p nephrectomy
Stage III prostate cancer-status post radiation therapy
Hypercholesterolemia
Hypothyroidism
Ambulatory dysfunction
Bihemispheric acute ischemic stroke
Plan:
A/w AMS, SOB
DESTINEE worsening with creatinine up to 6.5, BUN rising to 97
Remains nonoliguric with Lasix,weights down
Highly suspect cardiorenal in etiology versus progressive CKD, UA relatively bland
Remains hemodynamically unstable
Renal ultrasound with the possible mild left hydronephrosis, continue Fraser catheter
lasix 80mg IV provided
He has atrial tachycardia, currently on cardizm gtt, was on metoprolol
Echo report revealed EF 30%, heparin gtt
hyperkalemia-Lokelma one enteral route established , cont diuresis
AMS -neuro follows, CT head neg, need eventual MRI, uremia is in differential
Antibiotics per primary
Case previous discussed with the on the phone in detail, understands potential need of dialysis the next 24-48 hours
based on hemodynamics he may need CRRT
As per discussion with nursing family is leaning towards comfort care
Avoid nephrotoxins, hold lisinopril
Following patient's acute stroke due to multiple comorbidities patient is not an appropriate candidate for renal replacement therapy as he does not have a positive prognosis
If family forces us to be aggressive we will have to initiate CRRT
Patient is critically ill with hemodynamic instability an worsening renal failure, 32 minutes critical care time spent with patient
-
-
Date of Service: March 20, 2024
CC / HPI / ROS
-
Chief Complaint:
DESTINEE with CKD
History of Present Illness:
cr up at 6.5, BUN 97, only 1850 cc over night with fraser
Bp soft, afib with RVR on cardizem gtt, s/p 1 dose Amio
s/p thoracentesis of 1.2lit 03/17
Review of Systems:
remains altered, semi supine on bed on 2 lit of O2
NPO
no fever
Nonoliguric via Fraser
Labs
-
Labs:
WBC 9.9 10^3/uL (4.8-10.8) 03/20/24 04:56
RBC 4.27 10^6/uL (4.70-6.10) L 03/20/24 04:56
Hgb 12.3 g/dL (13.0-18.0) L 03/20/24 04:56
Hct 37.7 % (39.0-52.0) L 03/20/24 04:56
Plt Count 246 10^3/uL (130-400) 03/20/24 04:56
Sodium 143 mmol/L (135-145) 03/20/24 04:56
Potassium 4.7 mmol/L (3.5-5.1) 03/20/24 04:56
Chloride 101 mmol/L (98-107) 03/20/24 04:56
Carbon Dioxide 21 mmol/L (22-30) L 12/10/24 04:56
BUN 97 mg/dl (9-20) H 03/20/24 04:56
Creatinine 6.5 mg/dL (0.7-1.3) H* 03/20/24 04:56
eGFR 8.10 03/20/24 04:56
Glucose 126 mg/dl (70-99) H 03/20/24 04:56
Calcium 9.0 mg/dl (8.4-10.2) 03/20/24 04:56
Irq-N-Clzfnuwkgtk Pept > 26117 pg/ml 03/16/24 13:57
Albumin 3.6 g/dl (3.5-5.0) 03/20/24 04:56
Physical Exam
-
Vital Signs:
Vital Signs
Temp Pulse Resp BP Pulse Ox
98.3 F 114 19 106/72 96
03/20/24 07:34 03/20/24 06:00 03/20/24 06:00 03/20/24 06:00 03/20/24 07:34
Cardiovascular:: Irregular rate and rhythm (tachy)
Respiratory:: Bilateral: Coarse
Lung Excursion:: Abnormal (decreased)
Abdomen:: Nontender and Soft
Extremity Edema:: +1: Bilateral: (trace)
Fraser Catheter: Yes
--- NOTE | 2024-03-20 08:28 | W.PN.CD ---
Today's Communication / Plan
-
creatinine up to 6.5
atrial flutter with RVR
- continue IV cardizem
- metoprolol IV PRN
- issues related to anticoagulation as outlined
goals of care as outlined by hospitlists. Based on notes Hospice being considered
Impression / Plan
-
IMPRESSION/PLAN: 78M with coronary artery disease (LCx PCI with LAD disease unamenable to PCI), hypertension, dyslipidemia, RCC status post nephrectomy, chronic kidney disease, prostate cancer, multiple hemorrhagic strokes (attributed to
chemotherapy while being treated for RCC), hypothyroidism, and former smoker presented to the emergency department with a chief complaint of a fall.
Outpatient supply chain director: Dr. Petty at
[facility]
- neurology - massive stroke (detailed update note 03/18)
- no AC at this time: could start eliquis 03/20 if in line with goals of care,
- based on notes Hospice being considered ( hospitalists reviewing goals of care with family)
Atrial flutter, typical, paroxysmal
- RVR, accelerated rates with stable BP
- continue diltiazem drip and PRN. metoprolol. No Digoxin with DESTINEE
-CHADS2-VASC = 7. AC plan as above
HFrEF (EF 25-30%), acute
- ECHO 03/16/24 - LVEF 25-30%
- Could be related to sustained tachycardia.
-Outpatient cardiology notes does not have any documented recent LVEF
-GDMT is limited with his DESTINEE
-will transition IV diltiazem to metoprolol, based on goal of care
-not currently taking PO
-lasix dosed by nephrology in setting of acute renal failure
-high risk situation with close monitoring of labs
Abnormal troponin, likely Type II HI
-Chest pain-free
-continue ASA
CAD
-PCIs: LCx 2018 with severe diffuse LAD disease not amenable to revascularization
-He had an NSTEMI, type II HI, following his radical nephrectomy
-Continue ASA
Acute renal failure ( acuteon chronic). creatinine 6.5.
-tx per nephrology
RBBB, LAFB, chronic
NSVT, per outpatient cardiology note, follow telemetry
HLD, on atorvastatin
RCC status post nephrectomy (right) with metastasis to right adrenal, left adrenal, and right lung - managed by [facility]
Prostate cancer status post XRT
CVA, hemorrhagic, possibly related to Pazopanib during chemotherapy (2013)
NIDDM with retinopathy and proteinuria, diabetes managed by Dr. Camacho
Hypothyroidism on levothyroxine
Former smoker, continue cessation recommended
Physical Exam
Vital Signs/Labs
Vital Signs
Temp Pulse Resp BP Pulse Ox
98.3 F 114 19 106/72 96
03/20/24 07:34 03/20/24 06:00 03/20/24 06:00 03/20/24 06:00 03/20/24 07:34
03/19/24 03/20/24 03/21/24
06:59 06:59 06:59
Actual Weight 78.7 kg 76.9 kg
03/20/24 04:56
03/20/24 04:56
APTT 68.5 Sec (23.4-35.0) H 03/18/24 18:14
Magnesium 2.6 mg/dl (1.6-2.3) H 03/17/24 04:14
03/16/24
13:57
Ghe-W-Lorwggarmyl Pept > 03261
LAB Results
03/17/24 03/17/24 03/18/24
15:30 21:54 03:46
Troponin I 4.500 H* 4.410 H* Cancelled
03/18/24 03/18/24
03:46 09:42
Troponin I 4.040 H* 4.580 H*
Physical Exam
Constitutional: No acute distress
Cardiovascular: Other (tachycardic and regular)
Respiratory: Wheeze Absent and Rhonchi Absent
GI: Soft
Neuro/Psych: Other (opens eye and will wiggle few fingers on right hand)
Data Reviewed
-
Date of Service: March 20, 2024
Medical Decision Making: Reviewed Test Results
Echo: Report Reviewed by me
X-Ray/CT/US/MRI/NUC/PET: Report Reviewed by me
Medical Tests (PFT, Pathology etc): Report Reviewed by me
Labs: Labs Reviewed by me
[2024-03-20] MEDS: FLOMAX PO (09:01)
--- NOTE | 2024-03-20 10:08 | HOSPNOTE ---
Called spouse Myha and discussed hospice and the philosophy. Spouse and daughter would like to meet tomorrow around 12 noon to discuss hospice. Per attending the patient would need to remain inpatient hospice. More information to follow after
tomorrows meeting.
[2024-03-20] MEDS: LOPRESSOR 5 MG IV ×3 (10:50→20:22)
[2024-03-20 12:27] LABS: Glucose - Point of Care 135 mg/dl (70-99)
[2024-03-20] MEDS: OFIRMEV 50 MG IV (13:12)
--- NOTE | 2024-03-20 13:26 | CM ---
CM following re: discharge planning.
Reviewed pt's chart, met with pt.
CM consult for hospice care noted. Pt referred to hospice this morning.
Per development analyst, a meeting with the family is scheduled for tomorrow 03/21/24.
D/C plan: Hospice care with hospice with [facility].
CM will follow with discharge plan updates as hospitalization progresses
[2024-03-20] MEDS: LIPITOR PO (16:46)
[2024-03-20] MEDS: LEVOTHROID 75 MCG IV (18:26)
[2024-03-20] MEDS: OFIRMEV 100 IV (18:27)
[2024-03-20 18:46] LABS: Glucose - Point of Care 130 mg/dl (70-99)
--- NOTE | 2024-03-20 19:00 | PTCARENOTE ---
can verify vitals starting at this time for shift.
--- NOTE | 2024-03-20 20:00 | PTCARENOTE ---
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 denies pain. ST HR 130s. B/L IV WNL- Cardizem gtt infusing per work list documentation. CHG bath, Heard care, mouth care.
[2024-03-21] VITALS (10 sets, daily range): BP systolic 99–131; BP diastolic 53–109; BMI 27.8
[2024-03-21 00:06] LABS: Glucose - Point of Care 121 mg/dl (70-99)
[2024-03-21] MEDS: ZOSYN 50 IV ×3 (00:09→15:28)
[2024-03-21] MEDS: OFIRMEV 100 IV ×2 (00:37→11:19)
[2024-03-21] MEDS: LOPRESSOR 5 MG IV ×3 (03:29→14:08)
[2024-03-21 03:42] LABS: Hematocrit 36.8 % (39.0-52.0); Hemoglobin 12.1 g/dL (13.0-18.0); Mean Corp Hgb Conc. 32.9 g/dL (33.0-37.0); Mean Corpuscular Hgb 28.8 pg (27.0-31.0); Mean Corpuscular Volume 87.6 fL (80.0-94.0); Mean Platelet Volume 10.2 fL (7.4-10.4); Platelet Count 239 10^3/uL (130-400); Red Cell Dist. Width 16.7 % (11.5-14.5); White Blood Cell Count 10.2 10^3/uL (4.8-10.8)
[2024-03-21] MEDS: CARDIZEM 125 IV ×2 (03:49→11:19)
[2024-03-21 04:14] LABS: Blood Urea Nitrogen 104 mg/dl (9-20); Calcium 8.8 mg/dl (8.4-10.2); Carbon Dioxide 20 mmol/L (22-30); Chloride 103 mmol/L (98-107); Estimated Creatinine Clearance 8 ml/min; Glucose 124 mg/dl (70-99); Potassium 4.2 mmol/L (3.5-5.1); Sodium 143 mmol/L (135-145); eGFR 8.41
[2024-03-21 06:25] LABS: Glucose - Point of Care 109 mg/dl (70-99)
[2024-03-21] MEDS: FLOMAX PO (07:17)
--- NOTE | 2024-03-21 07:41 | PTCARENOTE ---
recd pt 0715 handoff with previous RN at bedside, see [employer] documentation. 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 difficulty reading any [employer] documentation but able to identify objects.
tolerated oral care, requested and given cheryl fely with aspiration precautions. swallowed small sip, no straw, did not cough at all after 1st sip, with subsequent did have some throat clearing. sleeps unless disturbed, positioned for comfort.
--- NOTE | 2024-03-21 08:47 | W.PN.CD ---
Today's Communication / Plan
-
Continue diltiazem drip with IV metoprolol 5 mg every 4 hours as needed
No anticoagulation for now pending goals of care discussion
Impression / Plan
-
IMPRESSION/PLAN: 78M with coronary artery disease (LCx PCI with LAD disease unamenable to PCI), hypertension, dyslipidemia, RCC status post nephrectomy, chronic kidney disease, prostate cancer, multiple hemorrhagic strokes (attributed to
chemotherapy while being treated for RCC), hypothyroidism, and former smoker presented to the emergency department with a chief complaint of a fall.
Outpatient replenishment analyst: Dr. Petty at
[facility]
- neurology - massive stroke (detailed update note 03/18)
- no AC at this time: Waiting for decision on goals of care with family
- based on notes Hospice being considered ( hospitalists reviewing goals of care with family)
Atrial flutter, typical, variable conduction
- RVR, accelerated rates with stable BP
- continue diltiazem drip with metoprolol 5 mg IV every 4 hours as needed. No Digoxin with DESTINEE
-CHADS2-VASC = 7. AC plan as above
HFrEF (EF 25-30%), acute
- ECHO 03/16/24 - LVEF 25-30%
- Could be related to sustained tachycardia.
-Outpatient cardiology notes does not have any documented recent LVEF
-GDMT is limited with his DESTINEE
-will transition IV diltiazem to metoprolol, based on goal of care
-not currently taking PO
-lasix dosed by nephrology in setting of acute renal failure
-high risk situation with close monitoring of labs
Abnormal troponin, likely Type II NC
-Chest pain-free
-continue ASA
CAD
-PCIs: LCx 2018 with severe diffuse LAD disease not amenable to revascularization
-He had an NSTEMI, type II NC, following his radical nephrectomy
-Continue ASA
Acute renal failure (acute on chronic). creatinine 6.5.
-tx per nephrology
RBBB, LAFB, chronic
NSVT, per outpatient cardiology note, follow telemetry
HLD, on atorvastatin
RCC status post nephrectomy (right) with metastasis to right adrenal, left adrenal, and right lung - managed by [facility]
Prostate cancer status post XRT
CVA, hemorrhagic, possibly related to Pazopanib during chemotherapy (2013)
NIDDM with retinopathy and proteinuria, diabetes managed by Dr. Camacho
Hypothyroidism on levothyroxine
Former smoker, continue cessation recommended
Subjective: Patient is communicative this morning. Says he feels well. Knows he is at [facility]. Telemetry reveals atrial flutter with variable conduction and a heart rate of 90�140. He remains on diltiazem drip.
Physical Exam
Vital Signs/Labs
Vital Signs
Temp Pulse Resp BP Pulse Ox
97.3 F 126 24 118/73 97
03/21/24 08:00 03/21/24 08:13 03/21/24 07:00 03/21/24 08:13 03/21/24 07:00
03/20/24 03/21/24 03/22/24
06:59 06:59 06:59
Actual Weight 76.9 kg 75.7 kg
03/21/24 03:29
03/21/24 03:29
APTT 68.5 Sec (23.4-35.0) H 03/18/24 18:14
Magnesium 2.6 mg/dl (1.6-2.3) H 03/17/24 04:14
03/16/24
13:57
Xxr-Y-Xdqtdlsizeq Pept > 70907
LAB Results
03/18/24
09:42
Troponin I 4.580 H*
Physical Exam
Constitutional: No acute distress and Comfortable
Cardiovascular: Pedal edema is absent, Rhythm/rate is irregular, S1S2 is normal and Murmur/rub/gallop absent
Respiratory: Respiratory effort normal and Lungs clear to auscul.
Data Reviewed
-
Date of Service: March 21, 2024
Medical Decision Making: Reviewed Test Results, Independent Historian Assessment, Test Interpretation and Review of Case with other Provider
EKG: Tracing Personally Visualized and interpreted
Echo: Report Reviewed by me
X-Ray/CT/US/MRI/NUC/PET: Report Reviewed by me
Labs: Labs Reviewed by me
--- NOTE | 2024-03-21 09:13 | W.PN.HOSP.TC ---
Addendum entered and electronically signed by Mehdi Ivy MD 03/21/24 14:03:
Seen and examined by me independently in collaboration with the medical transcriptionist.
Lab data and imaging data reviewed.
Addendum as below :
Patient is alert and oriented to place. Dysarthric. Difficult to communicate because of his speech impairment. Also very slow to react to questions.
No acute distress noted.
Still hemiplegic on the left side. Neglecting left side.
Hemodynamically stable. Oxygenating okay on room air.
Remains tachy with RVR from A-fib.
Resting azotemia and persistent elevation of creatinine noted.
Patient with organ dysfunction and disabling stroke.Prognosis is poor. Family to have a discussion today regarding goals of care including hospice.
Original Note:
Today's Communication/Plan
-
Diet per Speech
Family considering hospice
Assessment / Plan
Assessment / Plan
78-year-old male with history of stage IV renal cancer s/p right nephrectomy, stage III prostate cancer s/p radiation therapy, history of previous mets in the lung which reportedly resolved- followed by Todd Sims, 3 CVA currently not on
anticoagulation given history of recurrent falls, hypertension, hypercholesterolemia, diabetes type 2, hypothyroidism, BPH, CAD s/p cardiac stent presented with altered mental status and shortness of breath.
# DESTINEE on CKD stage IV with hyperkalemia and metabolic acidosis
-Creatinine 6.3 today (reviewed lab work from January 2024 on the phone creatinine 2.98); worsening; patient and family refusing dialysis
-Nephro on board(per patient was informed by outpatient technical services assistant he might need dialysis)
-Volume overloaded on exam on day of arrival
-VQ scan:-low probability for PE
-1 dose of Iv lasix 80mg on 03/16/24
-fraser placement
-hold aleve and lisinopril
-1 dose of 120mg lasix and 1 dose of diuril 0.5 on 03/18
-additional dose of lasix 80mg per nephro 03/19
-CRRT on hold given family is considering comfort care
IDDS4 with thick liquids per speech recs
# Acute hypoxic respiratory insufficiency, #SOB
Likely secondary to heart failure, pleural effusion.
-CT chest:Moderate right pleural effusion with right lower lobe 'consolidation' with air bronchograms. Findings could represent atelectasis and/or pneumonia. Right lower lobe mass cannot be excluded.
Small left pleural effusion with accompanying left lower lobe subsegmental atelectasis.
Coronary artery calcifications,No pneumothorax.
- fluid studies ordered; cytology to rule out malignant pleural effusion;history of metastatic RCC
repeat cxr: Opacification in the right mid to lower lung, possibly slightly increased with known right lower lobe consolidation and moderate right pleural effusion seen on Chest CT of preceding day.
- s/p pleural tap 1250ml
# TME likely secondary to above/below
03/16/24 CT head:No acute intracranial abnormalities,Old lacunar infarct again suggested in the right internal capsule.
03/18/24 Brain MRI: Large acute infarct in the right middle cerebral artery distribution.Moderate acute infarct in the left parietal lobe.
#Altered mental status
-continue zosyn
-anti psychotic not recommended with prolong qtc
- neurology on board; heparin on hold for 48 hrs
family refused the tube.
# HFrEF
# a fib
#tachycardia
-denies chest pain
-proBNP >26493
- daily weight
-cardizem drip continue and prn metoprolol by cardio
-amiodarone one dose by cardio 03/18
#type 2 [place]
trop elevated
heparin on hold now given the new stroke on brain mri
# CAD
-s/p cardiac stenting
-can use asa, atorvastatin if route established
# Essential hypertension
-hold amlodipine 5 mg
-hold metoprolol; order for prn IV
-Hold lisinopril
# History of CVA; while on biologic for RCC
-unable to take ASA po and family refused tube
# Ytb-thizfka-vzmfwuorh diabetes mellitus; on hold;
-hold home repaglinide(lower dose 1mg)
-hold home pioglitazone
-ssc
# BPH
- family refused tube
- home tamsulosin
- home finasteride
#Chronic anemia
#Stage IV right renal cancer-s/p nephrectomy
#Stage III prostate cancer-status post radiation therapy
#Hypercholesterolemia-no po intake; no tube established, uses atorvastatin at home
#Hypothyroidism-IV levothyroxine
# Ambulatory dysfunction-uses a walker and electric scooter outside the home
DVT proph:SCD
code: DNR
Anticipated Discharge: > 48 hours
Subjective/Interval History
-
Date of Service: March 21, 2024
No new complaints
Objective Data
-
Labs:
Laboratory Results
03/21/24
03:29
WBC 10.2
Hgb 12.1 L
Hct 36.8 L
Plt Count 239
Sodium 143
Potassium 4.2
Chloride 103
Carbon Dioxide 20 L
BUN 104 H*
Creatinine 6.3 H*
Glucose 124 H
Calcium 8.8
Vital Signs:
Vital Signs
Temp Pulse Resp BP Pulse Ox
97.3 F 126 24 118/73 96
03/21/24 08:00 03/21/24 08:13 03/21/24 07:00 03/21/24 08:13 03/21/24 08:00
I&O
03/20/24 03/21/24 03/22/24
06:59 06:59 06:59
Intake Total 315 / 330 560 / 575 30 / 30
Output Total 1850 / 1850 1595 / 1595 125 / 125
Balance -1535 / -1520 -1035 / -1020 - / -95
Review of Systems
-
History Source: Patient
Respiratory: Denies Trouble Breathing
Cardiac: Denies Chest Pain
Abdomen/GI: Denies Abdominal Pain, Nausea or Vomiting
Neuro: Denies Headache
Hematologic / Lymphatic: Denies Bleeding
Psych: Reports Other (confused)
Physical Exam
-
General: Appears Chronically Ill and Obese
Respiratory: Decreased Breath Sounds
Cardiac: S1/S2 and Tachycardic
GI: Soft and Nontender
Skin: Warm and Dry
Neuro: Awake
Psych: Confused and Agitated
Data Reviewed
-
Labs: Labs Reviewed by me, Discussed with Physician and Discussed with Patient
--- NOTE | 2024-03-21 09:37 | W.PN.NEPH.PH ---
Today's Communication / Plan
-
follow BMP
Assessment/Plan
-
IMP:
DESTINEE on CKD stage IV-baseline GFR 20, cr 2.98-Oct Dr Castillo at [place]
Mild hyperkalemia
Non gap metabolic acidosis
TME
Acute hypoxic respiratory insufficiency,
Moderate right pleural effusion with right lower lobe 'consolidation' with air bronchograms. Findings could represent atelectasis and/or pneumonia. Right lower lobe mass cannot be excluded on CT.
Acute HFrEF 30%
s/p right thoracentesis of 1.2lit 03/17
Atrial flutter with RVR
Type 2 [place]
trop elevation
CAD-s/p stenting
Essential hypertension
History of CVA
Chronic anemia
Stage IV right renal cancer-s/p nephrectomy
Stage III prostate cancer-status post radiation therapy
Hypercholesterolemia
Hypothyroidism
Ambulatory dysfunction
Bihemispheric acute ischemic stroke
Plan:
family meeting today
unless he is hospice he will need dialysis
fortunately, no emergent HD needs today
follow BMP
-
-
Date of Service: March 21, 2024
CC / HPI / ROS
-
Chief Complaint:
DESTINEE with CKD
History of Present Illness:
DESTINEE/Cr 6.3, stable
BUN rising
BP stable
Review of Systems:
fraser, nonoliguric
no CP/SOB
Labs
-
Labs:
WBC 10.2 10^3/uL (4.8-10.8) 03/21/24 03:29
RBC 4.20 10^6/uL (4.70-6.10) L 03/21/24 03:29
Hgb 12.1 g/dL (13.0-18.0) L 03/21/24 03:29
Hct 36.8 % (39.0-52.0) L 03/21/24 03:29
Plt Count 239 10^3/uL (130-400) 03/21/24 03:29
Sodium 143 mmol/L (135-145) 03/21/24 03:29
Potassium 4.2 mmol/L (3.5-5.1) 03/21/24 03:29
Chloride 103 mmol/L (98-107) 03/21/24 03:29
Carbon Dioxide 20 mmol/L (22-30) L 03/21/24 03:29
BUN 104 mg/dl (9-20) H* 03/21/24 03:29
Creatinine 6.3 mg/dL (0.7-1.3) H* 03/21/24 03:29
eGFR 8.41 03/21/24 03:29
Glucose 124 mg/dl (70-99) H 03/21/24 03:29
Calcium 8.8 mg/dl (8.4-10.2) 03/21/24 03:29
Bll-L-Viemwpfdsgh Pept > 36638 pg/ml 03/16/24 13:57
Albumin 3.6 g/dl (3.5-5.0) 03/20/24 04:56
Physical Exam
-
Vital Signs:
Vital Signs
Temp Pulse Resp BP Pulse Ox
97.3 F 126 24 118/73 96
03/21/24 08:00 03/21/24 08:13 03/21/24 07:00 03/21/24 08:13 03/21/24 08:00
Cardiovascular:: Regular rate and rhythm
Respiratory:: Bilateral: Coarse
Lung Excursion:: Normal
Abdomen:: Nontender and Soft
Bowel Sounds:: Normal
Extremity Edema:: None: Bilateral:
[2024-03-21 11:44] LABS: Glucose - Point of Care 124 mg/dl (70-99)
--- NOTE | 2024-03-21 12:38 | PTCARENOTE ---
seen by speech therapy, ordered lunch, VS noted, no change from earlier, talkative when engaged, occas aphasic, word searching or inappropriate or garbled. positioned for comfort.
--- NOTE | 2024-03-21 12:43 | PTOTSP ---
Speech Therapy
Overt signs of aspiration with thin liquids. Intermittent difficulty with oral processing, but tolerated pureed trials.
Recommend
1. Initiate Level 4 (pureed) and Moderately thick liquids
2. Meds crushed in applesauce.
3. Continue ARHP allowing ice chips and sips of water in between meals following oral care guidelines.
4. 1:1 supervision with meals and assist with feeding.
5. Aspiration precautions.
6. Pending results of family meeting, liberalization of diet including thin liquids and soft solids may be indicated if hospice is elected. Otherwise, VSE would be indicated to objectively assess pharyngeal swallow and better identify least
restrictive diet.
7. ST will follow as indicated by decisions re: goals of care.
--- NOTE | 2024-03-21 14:45 | CHAP ---
Addendum entered by Shaylee Bautista 03/21/24 16:28:
Mr. Forbes received [facility] the Sick/Last Rites as requested.
Original Note:
General Expeditor request relayed to Monsignor Franklin, who anticipates arriving about 3:30 today.
--- NOTE | 2024-03-21 15:42 | HOSPNOTE ---
Met with family and discussed hospice and patient being made comfortable. Family is in agreement with comfort. Attending informed to stop all medications and focus on comfort medications. Will continue to follow. Admissions was called to move
patient to [facility] [address].
--- NOTE | 2024-03-21 15:59 | W.PN.UPDATE ---
Addendum entered and electronically signed by Mehdi Ivy MD 03/21/24 16:40:
Was able to get his on phone. family had a meeting with hospice and they are all on the same page that comfort should be the goal. They have agreed for hospice.
Discussed about role of comfort medication in this situation; since comfort is the goal they are in agreement to hold his active medications and use only medication as needed for comfort and symptoms and let the nature takes its course.
Transfer patient out of ICU.
Discussed with GLASS ETCHER HELPER.
Original Note:
Update Note
Progress Note Update
Got a call from the hospice plan administrator. There was a hospice meeting this afternoon with the family. According to her, family is in agreement to start comfort. He would benefit inpatient hospice and can be transitioned to inpatient hospice tomorrow.
Apparently they want to stop all meds and do comfort only meds.
Tried to reach Myah on the phone and left a message.
--- NOTE | 2024-03-21 16:48 | PTCARENOTE ---
on phone with Dr. Ivy, orders noted, turned, cleaned for large liq/loose BM, while turning, did become nauseated wtih dry heaves, oral care, warm blanket given. off monitor, cardizem off per order, reviewed plan with family.
--- NOTE | 2024-03-21 20:00 | PTCARENOTE ---
Received pt via handoff. NIH score of 18, pt does not follow commands but responds to verbal and tactile. Pupils +3 and sluggish, afebrile. Sinus tach, +1 edema on LE. 97% on RA, diminished lungs sounds with crackles non productive wet cough.
Hypoactive bowel sounds in all 4Q. Heard CDI draining clear yellow urine. Gtts running see flowsheet. Call garcia at bedside.
--- NOTE | 2024-03-21 20:24 | PTCARENOTE ---
Pt to be transferred to room 2139.
[2024-03-21] MEDS: ZOFRAN 4 MG IV (22:13)
[2024-03-22] MEDS: ATIVAN 0.5 MG PO ×3 (01:06→21:01)
[2024-03-22] MEDS: ROBINUL 0.2 MG IV ×3 (01:06→21:00)
--- NOTE | 2024-03-22 01:22 | PTCARENOTE ---
Patient transferred from ICU, report received from Christiano RN, patient has been made comfort status. Patient remained in bed during transfer, beds were swapped, he remains comfortable, able to answer yes or no as well as opens his eyes, has moist
cough at times, and excessive throat clearing, his skin is intact some blanchable redness on sacral area, scabs noted to LLE. no family present at this time, suction set up at bedside, patient on comfort medications as needed, left arm flaccid.
[2024-03-22] MEDS: ZOFRAN 4 MG IV ×2 (03:20→21:01)
[2024-03-22 07:28] LABS: Hematocrit 38.7 % (39.0-52.0); Hemoglobin 12.6 g/dL (13.0-18.0); Mean Corp Hgb Conc. 32.6 g/dL (33.0-37.0); Mean Corpuscular Hgb 28.8 pg (27.0-31.0); Mean Corpuscular Volume 88.6 fL (80.0-94.0); Mean Platelet Volume 10.2 fL (7.4-10.4); Platelet Count 226 10^3/uL (130-400); Red Blood Cell Count 4.37 10^6/uL (4.70-6.10); Red Cell Dist. Width 16.8 % (11.5-14.5); White Blood Cell Count 10.4 10^3/uL (4.8-10.8)
[2024-03-22 07:45] VITALS: BP 151/116
[2024-03-22 07:53] LABS: Estimated Creatinine Clearance 8 ml/min; eGFR 8.25
[2024-03-22 07:54] LABS: Blood Urea Nitrogen 112 mg/dl (9-20); Calcium 8.3 mg/dl (8.4-10.2); Carbon Dioxide 21 mmol/L (22-30); Chloride 103 mmol/L (98-107); Glucose 176 mg/dl (70-99); Potassium 4.5 mmol/L (3.5-5.1); Sodium 143 mmol/L (135-145)
--- NOTE | 2024-03-22 08:03 | W.PN.HOSP.TC ---
Today's Communication/Plan
-
Currently on comfort care; transition to hospice today
Assessment / Plan
Assessment / Plan
78-year-old male with history of stage IV renal cancer s/p right nephrectomy, stage III prostate cancer s/p radiation therapy, history of previous mets in the lung which reportedly resolved- followed by Todd Sims, 3 CVA currently not on
anticoagulation given history of recurrent falls, hypertension, hypercholesterolemia, diabetes type 2, hypothyroidism, BPH, CAD s/p cardiac stent presented with altered mental status and shortness of breath.
# DESTINEE on CKD stage IV with hyperkalemia and metabolic acidosis
-Creatinine 6.4 today (reviewed lab work from January 2024 on the phone creatinine 2.98); worsening; patient and family refusing dialysis
-Nephro on board(per patient was informed by outpatient oracle fusion developer he might need dialysis)
-Volume overloaded on exam on day of arrival
-VQ scan:-low probability for PE
-1 dose of Iv lasix 80mg on 03/16/24
-fraser placement
-hold aleve and lisinopril
-1 dose of 120mg lasix and 1 dose of diuril 0.5 on 03/18
-additional dose of lasix 80mg per nephro 03/19
-Family opted comfort care; transition to hospice
IDDS4 with thick liquids per speech recs
# Acute hypoxic respiratory insufficiency, #SOB
Likely secondary to heart failure, pleural effusion.
-CT chest:Moderate right pleural effusion with right lower lobe 'consolidation' with air bronchograms. Findings could represent atelectasis and/or pneumonia. Right lower lobe mass cannot be excluded.
Small left pleural effusion with accompanying left lower lobe subsegmental atelectasis.
Coronary artery calcifications,No pneumothorax.
- fluid studies ordered; cytology to rule out malignant pleural effusion;history of metastatic RCC
repeat cxr: Opacification in the right mid to lower lung, possibly slightly increased with known right lower lobe consolidation and moderate right pleural effusion seen on Chest CT of preceding day.
- s/p pleural tap 1250ml
# TME likely secondary to above/below
03/16/24 CT head:No acute intracranial abnormalities,Old lacunar infarct again suggested in the right internal capsule.
03/18/24 Brain MRI: Large acute infarct in the right middle cerebral artery distribution.Moderate acute infarct in the left parietal lobe.
#Altered mental status
-Discontinue zosyn
- neurology on board
family opted for comfort care
# HFrEF
# a fib
#tachycardia
-denies chest pain
-proBNP >36385
- daily weight
-cardizem drip d/c;
-amiodarone one dose by cardio 03/18
#type 2 OR
trop elevated
heparin on hold now given the new stroke on brain mri
# CAD
-s/p cardiac stenting
# Essential hypertension
-hold amlodipine 5 mg
-hold metoprolol;
-Hold lisinopril
# History of CVA; while on biologic for RCC
-unable to take ASA po and family refused tube; patient on comfort care
# Oaw-fdvcgvj-iwbxzwofn diabetes mellitus; on hold;
-hold home repaglinide(lower dose 1mg)
-hold home pioglitazone
# BPH
- family refused tube; d/c meds; on comfort care
#Chronic anemia
#Stage IV right renal cancer-s/p nephrectomy
#Stage III prostate cancer-status post radiation therapy
#Hypercholesterolemia-no po intake; no tube established, uses atorvastatin at home
#Hypothyroidism-
# Ambulatory dysfunction-uses a walker and electric scooter outside the home
code: DNR
Anticipated Discharge: Today
Subjective/Interval History
-
Date of Service: March 22, 2024
No new complaint, AFVSS
Objective Data
-
Labs:
Laboratory Results
03/22/24
06:44
WBC 10.4
Hgb 12.6 L
Hct 38.7 L
Plt Count 226
Sodium 143
Potassium 4.5
Chloride 103
Carbon Dioxide 21 L
BUN 112 H*
Creatinine 6.4 H*
Glucose 176 H
Calcium 8.3 L
Vital Signs:
Vital Signs
Temp Pulse Resp BP Pulse Ox
97.7 F 140 17 129/82 97
03/21/24 22:15 03/21/24 22:15 03/21/24 22:15 03/21/24 22:15 03/21/24 22:15
I&O
03/21/24 03/22/24 03/23/24
06:59 06:59 06:59
Intake Total 560 / 575 612 / 612
Output Total 1595 / 1595 425 / 425
Balance -1035 / -1020 187 / 187
Review of Systems
-
History Source: Patient
Respiratory: Denies Trouble Breathing
Cardiac: Denies Chest Pain
Abdomen/GI: Denies Abdominal Pain, Nausea or Vomiting
Neuro: Denies Headache
Hematologic / Lymphatic: Denies Bleeding
Psych: Reports Other (confused)
Physical Exam
-
General: Appears Chronically Ill and Obese
Cardiac: S1/S2 and Tachycardic
GI: Soft and Nontender
Skin: Warm and Dry
Neuro: Awake
Psych: Confused and Agitated
Data Reviewed
-
Labs: Labs Reviewed by me and Discussed with Physician
Old Records: Reviewed
[2024-03-22] MEDS: MORPHINE SULFATE 1 MG IV ×2 (08:04→20:57)
--- NOTE | 2024-03-22 08:55 | PTOTSP ---
Speech Language Pathology
Pt seen for dysphagia tx. Pt now on comfort measures with plan for bridge to inpatient hospice. Currently on pureed solids/moderately thick liquids. VSE was a consideration initially, but this is not in line with comfort care. P.O. trials of
puree, regular solids, and thin liquids via straw provided. Incoordinated self feeding noted and oral phase of swallow. Incoordinated mastication with mild labial leakage of regular solids without sensation of this. Only trace lingual coating
noted post regular solids. Pt tolerated single straw sips of thin liquids without overt difficulty until utilized as a liquid wash when cough noted x1.
As plan is for comfort care and pt tolerating P.O. trials well this date, will recommend to liberalize diet.
Recommend:
(1) IDDSI Level 6 (soft/bite-sized) and thin liquids
(2) Aspiration precautions: sit upright, slow rate, single sips, full supervision with assist as needed, ensure oral cavity clear post P.O. intake
(3) Meds whole in puree
(4) ASSOCIATE EDITOR to sign off given comfort care status with plan to bridge to hospice. Please reconsult as indicated
--- NOTE | 2024-03-22 11:04 | CM ---
Reviewed the chart notes. Patient transferred later yesterday from ICU. CM continues to be available to patient/family.
Plan: Comfort Care.
--- NOTE | 2024-03-22 11:26 | W.PN.NEPH.PH ---
Addendum entered and electronically signed by Mehdi Ivy MD 03/22/24 15:18:
Seen and examined by me independently in collaboration with the medical records director.
Lab data and imaging data reviewed.
Addendum as below :
Patient currently on comfort measures. He needed IV pain medication and Ativan this morning. Currently looks comfortable. Sleeping so did not wake him up.
Discussed with at bedside who sees him to be comfortable as well.
Continue with current comfort measures.
Original Note:
Today's Communication / Plan
-
hospice
Assessment/Plan
-
IMP:
DESTINEE on CKD stage IV-baseline GFR 20, cr 2.98-Oct Dr Castillo at [facility]
Mild hyperkalemia
Non gap metabolic acidosis
TME
Acute hypoxic respiratory insufficiency,
Moderate right pleural effusion with right lower lobe 'consolidation' with air bronchograms. Findings could represent atelectasis and/or pneumonia. Right lower lobe mass cannot be excluded on CT.
Acute HFrEF 30%
s/p right thoracentesis of 1.2lit 03/17
Atrial flutter with RVR
Type 2 [place]
trop elevation
CAD-s/p stenting
Essential hypertension
History of CVA
Chronic anemia
Stage IV right renal cancer-s/p nephrectomy
Stage III prostate cancer-status post radiation therapy
Hypercholesterolemia
Hypothyroidism
Ambulatory dysfunction
Bihemispheric acute ischemic stroke
Plan:
family has decided to pursue hospice
-
-
Date of Service: March 22, 2024
CC / HPI / ROS
-
Chief Complaint:
DESTINEE with CKD
History of Present Illness:
DESTINEE/Cr up to 6.4
BUN rising
BP stable
Review of Systems:
fraser, nonoliguric
no CP/SOB
Labs
-
Labs:
WBC 10.4 10^3/uL (4.8-10.8) 03/22/24 06:44
RBC 4.37 10^6/uL (4.70-6.10) L 03/22/24 06:44
Hgb 12.6 g/dL (13.0-18.0) L 03/22/24 06:44
Hct 38.7 % (39.0-52.0) L 03/22/24 06:44
Plt Count 226 10^3/uL (130-400) 03/22/24 06:44
Sodium 143 mmol/L (135-145) 03/22/24 06:44
Potassium 4.5 mmol/L (3.5-5.1) 03/22/24 06:44
Chloride 103 mmol/L (98-107) 03/22/24 06:44
Carbon Dioxide 21 mmol/L (22-30) L 03/22/24 06:44
BUN 112 mg/dl (9-20) H* 03/22/24 06:44
Creatinine 6.4 mg/dL (0.7-1.3) H* 03/22/24 06:44
eGFR 8.25 03/22/24 06:44
Glucose 176 mg/dl (70-99) H 03/22/24 06:44
Calcium 8.3 mg/dl (8.4-10.2) L 03/22/24 06:44
Fds-N-Csadcxjkfpw Pept > 15243 pg/ml 03/16/24 13:57
Albumin 3.6 g/dl (3.5-5.0) 03/20/24 04:56
Physical Exam
-
Vital Signs:
Vital Signs
Temp Pulse Resp BP Pulse Ox
97.8 F 154 17 151/116 94
03/22/24 07:45 03/22/24 07:45 03/22/24 07:45 03/22/24 07:45 03/22/24 07:45
Cardiovascular:: Regular rate and rhythm
Respiratory:: Bilateral: Coarse
Lung Excursion:: Normal
Abdomen:: Nontender and Soft
Bowel Sounds:: Normal
Extremity Edema:: None: Bilateral:
--- NOTE | 2024-03-22 13:25 | HOSPNOTE ---
Evaluated for GIP level of care for hospice. Patient utilizing little IV comfort medications. Taken at 1am and 8am none since. Is not GIP appropriate level of care at this time. Will continue to follow.
[2024-03-22 23:18] VITALS: BP 108/73
--- NOTE | 2024-03-23 05:15 | PTCARENOTE ---
Pt noted with bloody secretions and large blood clots around mouth x 2 during this shift. Oral care and suctioning provided as needed, medicated with morphine , ativan and robinul x1. Resting comfortably at this time.
[2024-03-23 08:00] VITALS: BP 125/77
--- NOTE | 2024-03-23 09:31 | CM ---
Reviewed the chart notes. Patient continues on comfort care. CM continues to be available to patient/family.
Plan: Comfort care
--- NOTE | 2024-03-23 09:33 | W.PN.HOSP.TC ---
Addendum entered and electronically signed by Mehdi Ivy MD 03/23/24 13:40:
Patient on comfort measures.
Continue with current comfort treatments.
Discussed with RN-at times patient is lethargic but comfortable.
Original Note:
Today's Communication/Plan
-
Currently on comfort care; transition to hospice
Assessment / Plan
Assessment / Plan
78-year-old male with history of stage IV renal cancer s/p right nephrectomy, stage III prostate cancer s/p radiation therapy, history of previous mets in the lung which reportedly resolved- followed by [facility], 3 CVA currently not on
anticoagulation given history of recurrent falls, hypertension, hypercholesterolemia, diabetes type 2, hypothyroidism, BPH, CAD s/p cardiac stent presented with altered mental status and shortness of breath.
# DESTINEE on CKD stage IV with hyperkalemia and metabolic acidosis
-Creatinine 6.4 (reviewed lab work from January 2024 on the phone creatinine 2.98); worsening; patient and family refusing dialysis
-Nephro on board(per patient was informed by outpatient signal maintainer helper he might need dialysis)
-Volume overloaded on exam on day of arrival
-VQ scan:-low probability for PE
-1 dose of Iv lasix 80mg on 03/16/24
-fraser placement
-hold aleve and lisinopril
-1 dose of 120mg lasix and 1 dose of diuril 0.5 on 03/18
-additional dose of lasix 80mg per nephro 03/19
-Family opted comfort care; transition to hospice
IDDS6 per speech recs
# Acute hypoxic respiratory insufficiency, #SOB
Likely secondary to heart failure, pleural effusion.
-CT chest:Moderate right pleural effusion with right lower lobe 'consolidation' with air bronchograms. Findings could represent atelectasis and/or pneumonia. Right lower lobe mass cannot be excluded.
Small left pleural effusion with accompanying left lower lobe subsegmental atelectasis.
Coronary artery calcifications,No pneumothorax.
- fluid studies ordered; cytology to rule out malignant pleural effusion;history of metastatic RCC
repeat cxr: Opacification in the right mid to lower lung, possibly slightly increased with known right lower lobe consolidation and moderate right pleural effusion seen on Chest CT of preceding day.
- s/p pleural tap 1250ml
# TME likely secondary to above/below
03/16/24 CT head:No acute intracranial abnormalities,Old lacunar infarct again suggested in the right internal capsule.
03/18/24 Brain MRI: Large acute infarct in the right middle cerebral artery distribution.Moderate acute infarct in the left parietal lobe.
#Altered mental status
-Discontinue zosyn
- neurology on board
family opted for comfort care
# HFrEF
# a fib
#tachycardia
-denies chest pain
-proBNP >61405
- daily weight
-cardizem drip d/c;
-amiodarone one dose by cardio 03/18
#type 2 [place]
trop elevated
heparin on hold now given the new stroke on brain mri
# CAD
-s/p cardiac stenting
# Essential hypertension
-hold amlodipine 5 mg
-hold metoprolol;
-Hold lisinopril
# History of CVA; while on biologic for RCC
-unable to take ASA po and family refused tube; patient on comfort care
# Tvp-gkgxdnh-vylmvlydu diabetes mellitus; on hold;
-hold home repaglinide(lower dose 1mg)
-hold home pioglitazone
# BPH
- family refused tube; d/c meds; on comfort care
#Chronic anemia
#Stage IV right renal cancer-s/p nephrectomy
#Stage III prostate cancer-status post radiation therapy
#Hypercholesterolemia-no po intake; no tube established, uses atorvastatin at home
#Hypothyroidism-
# Ambulatory dysfunction-uses a walker and electric scooter outside the home
code: DNR
Anticipated Discharge: 24 - 48 hours
Subjective/Interval History
-
Date of Service: March 23, 2024
No new complaint, AFVSS
Objective Data
-
Vital Signs:
Vital Signs
Temp Pulse Resp BP Pulse Ox
98.0 F 146 16 108/73 97
03/22/24 23:18 03/22/24 23:18 03/22/24 23:18 03/22/24 23:18 03/22/24 23:18
I&O
03/22/24 03/23/24 03/24/24
06:59 06:59 06:59
Intake Total 612 / 612 240 / 240
Output Total 425 / 425 735 / 735
Balance 187 / 187 -495 / -495
Review of Systems
-
History Source: Patient
Respiratory: Denies Trouble Breathing
Cardiac: Denies Chest Pain
Abdomen/GI: Denies Abdominal Pain, Nausea or Vomiting
Neuro: Denies Headache
Hematologic / Lymphatic: Denies Bleeding
Physical Exam
-
General: Appears Chronically Ill and Obese
Cardiac: S1/S2 and Tachycardic
GI: Soft and Nontender
Skin: Warm and Dry
Neuro: Awake
Psych: Confused
Data Reviewed
-
Old Records: Reviewed
--- NOTE | 2024-03-23 12:22 | HOSPNOTE ---
Reviewed chart and patient status for possible GIP hospice admission. In last 24 hours Ativn, morphine and Robinul given x 2. This does not meet GIP level of care criteria. Will continue to follow over the weekend.
[2024-03-23] MEDS: MORPHINE SULFATE 1 MG IV (16:21)
[2024-03-23 23:34] VITALS: BP 120/81
[2024-03-24 07:50] VITALS: BP 111/59
--- NOTE | 2024-03-24 10:39 | W.PN.HOSP.TC ---
Today's Communication/Plan
-
Continue with comfort measures.
Assessment / Plan
Assessment / Plan
78-year-old male with history of stage IV renal cancer s/p right nephrectomy, stage III prostate cancer s/p radiation therapy, history of previous mets in the lung which reportedly resolved- followed by [facility] Sims, 3 CVA currently not on
anticoagulation given history of recurrent falls, hypertension, hypercholesterolemia, diabetes type 2, hypothyroidism, BPH, CAD s/p cardiac stent presented with altered mental status and shortness of breath.
# DESTINEE on CKD stage IV with hyperkalemia and metabolic acidosis
# Acute hypoxic respiratory insufficiency, #SOB
Likely secondary to heart failure, pleural effusion.
# TME vs Change in MS from acute strokes
# HFrEF
# a fib
#type 2 NC
# CAD
-s/p cardiac stenting
# Essential hypertension
# History of CVA; while on biologic for RCC
# BPH
#Chronic anemia
#Stage IV right renal cancer-s/p nephrectomy
#Stage III prostate cancer-status post radiation therapy
#Hypercholesterolemia-no po intake; no tube established, uses atorvastatin at home
#Hypothyroidism-
# Ambulatory dysfunction-uses a walker and electric scooter outside the home
Patient on comfort measures now.
Continue with the current treatments.
code: DNR
Anticipated Discharge: > 48 hours
Subjective/Interval History
-
Date of Service: March 24, 2024
On comfort measures
Patient is sleepy . Did not disturb him.
Discussed with RN-pt is comfortable
Objective Data
-
Vital Signs:
Vital Signs
Temp Pulse Resp BP Pulse Ox
98.0 F 149 18 111/59 96
03/24/24 07:50 03/24/24 07:50 03/24/24 07:50 03/24/24 07:50 03/24/24 07:50
I&O
03/23/24 03/24/24 03/25/24
06:59 06:59 06:59
Intake Total 240 / 240 420 / 420
Output Total 735 / 735 500 / 500
Balance -495 / -495 -80 / -80
Review of Systems
-
Unable to obtain full review of systems at this time due to: Other (on comfort measures)
Physical Exam
-
General: Comfortable
Respiratory: Non Labored Respirations; Negative Accessory Resp Muscle Use
Psych: Calm
[2024-03-24 23:23] VITALS: BP 127/85
[2024-03-25 07:40] VITALS: BP 135/88
--- NOTE | 2024-03-25 13:44 | W.PN.UPDATE ---
Update Note
Progress Note Update
Patient on comfort measures.
Not requiring much medication. Alert and looks comfortable.
at bedside who finds him comfortable.
Continue the current treatments.
[2024-03-25 20:16] VITALS: BP 139/86
[2024-03-26 07:35] VITALS: BP 120/74
--- NOTE | 2024-03-26 10:19 | CM ---
Reviewed the chart notes. Patient remains on comfort care.
CM continues to be available to patient/family.
--- NOTE | 2024-03-26 13:16 | W.PN.HOSP.TC ---
Addendum entered and electronically signed by Bev Washington MD 03/26/24 15:18:
I saw and evaluated the patient independently. I reviewed the resident�s note and agree with findings and plan as documented by Dr. Solis.
GENERAL: well developed, well nourished, chronically ill appearing male in no apparent distress--nonverbal with me--come to find out, he has aphasia
HEENT: NC/AT
HEART: regular rate and rhythm, +S1, +S2--+ tachycardic
LUNGS : clear to auscultation bilaterally
ABDOM: soft, nontender, nondistended, + bowel sounds
EXT: no cyanosis, clubbing, or edema
NEUROLOGIC: aphasia
altered mental status -- TME likely from DESTINEE/azotemia PLUS noted large acute stroke right MCA distribution and moderate acute infarct left parietal lobe--between both of these, hospice was consulted but pt does not meet GIP level of care, he has
been on comfort measures--he has stabilized (awake, eating, not using much pain meds if any) and does not qualify for continued hospital management--plan should be to transition out of the hospital to home hospice or SNF on hospice
DESTINEE on CKD stage 4 with hyperkalemia and metabolic acidosis-- pt declined dialysis in January--creat now rising--last check was 03/22 with BUN 112 and creat 6.4--still does not want HD and on comfort measures
acute hypoxemic resp insufficiency--likely due to combination of acute exacerbation of CHF (HFrEF), pleural effusion which was tapped and now not on O2 since on comfort measures
paroxysmal afib--does not appear to be on anticoagulation as outpt so therefore acute stroke likely due to this--again on comfort measures
essential HTN--meds stopped
type 2 DM -- meds stopped
BPH -- meds stopped
nutrition--on soft and bite sized diet, unclear if eating anything
code status -- DNR
Original Note:
Today's Communication/Plan
-
Patient on hospice/comfort measures,continue.
Discuss with CM about the goals of care/disposition
Assessment / Plan
Assessment / Plan
IMPRESSION
Patient is a 78-year-old male with history of stage IV renal cancer s/p right nephrectomy, stage III prostate cancer s/p radiation therapy, history of previous mets in the lung which reportedly resolved- followed by [facility], 3 CVA currently not on
anticoagulation given history of recurrent falls, hypertension, hypercholesterolemia, diabetes type 2, hypothyroidism, BPH, CAD s/p cardiac stent presented with altered mental status and shortness of breath.
ASSESSMENT/PLAN
# DESTINEE on CKD stage IV with hyperkalemia and metabolic acidosis
Patient advised dialysis by nephrology on outpatient basis since January,
Patient refused dialysis, admitted on March 16, 2024 with altered mental status
Potassium 5.4, serum creatinine 5
Signs and symptoms of volume overload
1 dose of IV Lasix 80 mg on the day of admission, 1 dose of 120 mg Lasix and 1 dose of Diuril 0.5 on March 18, additional dose of Lasix 80 mg per nephro on 03/19
Patient and family agreed to comfort care, and refused dialysis
Creatinine on March 22, 2024 is 6.4
Patient is on hospice March 22, 2020
# Acute hypoxic respiratory insufficiency,
Likely secondary to heart failure, pleural effusion and uremia.
CT chest:Moderate right pleural effusion with right lower lobe 'consolidation' with air bronchograms. Findings could represent atelectasis and/or pneumonia. Right lower lobe mass cannot be excluded.
Small left pleural effusion with accompanying left lower lobe subsegmental atelectasis.
Coronary artery calcifications,No pneumothorax.
s/p pleural tap 1250ml
Fluid ZNP392Hhhko Mononuclear Cell48.5Fl Polymorphonucl Cell51.5Fluid Other CellsNot ReportableFluid Avqaupu55Hjrtx Total Protein2.8Fluid HXX896�Fluid Triglycerides< 30��
# Altered mental status most likely secondary to TME
03/16/24 CT head:No acute intracranial abnormalities,Old lacunar infarct again suggested in the right internal capsule.
03/18/24 Brain MRI: Large acute infarct in the right middle cerebral artery distribution.Moderate acute infarct in the left parietal lobe.
OTHER MEDICAL CONDITIONS
# HFrEF
# a fib
#tachycardia
-denies chest pain
# CAD
-s/p cardiac stenting
# Essential hypertension
-hold amlodipine 5 mg
-hold metoprolol;
-Hold lisinopril
# History of CVA; while on biologic for RCC
-unable to take ASA po and family refused tube; patient on comfort care
# Lmq-hohhcun-cykpcxrit diabetes mellitus; on hold;
-hold home repaglinide(lower dose 1mg)
-hold home pioglitazone
# BPH
- family refused tube; d/c meds; on comfort care
#Chronic anemia
#Stage IV right renal cancer-s/p nephrectomy
#Stage III prostate cancer-status post radiation therapy
#Hypercholesterolemia-no po intake; no tube established, uses atorvastatin at home
#Hypothyroidism-
# Ambulatory dysfunction-uses a walker and electric scooter outside the home
Patient on comfort measures/hospice now.
03/26/24 10:19 - Case Management Note by Anna Sena RN
Reviewed the chart notes. Patient remains on comfort care.
CM continues to be available to patient/family.
code: DNR
Anticipated Discharge: 24 - 48 hours
Subjective/Interval History
-
Date of Service: March 26, 2024
No new complaints, patient sleeping, woke up to verbal stimuli but not responding much. Denies any pain or shortness of breath.
Objective Data
-
Vital Signs:
Vital Signs
Temp Pulse Resp BP Pulse Ox
97.9 F 163 16 120/74 96
03/26/24 07:35 03/26/24 07:35 03/26/24 07:35 03/26/24 07:35 03/26/24 09:53
I&O
03/25/24 03/26/24 03/27/24
06:59 06:59 06:59
Intake Total 190 / 190 660 / 660
Output Total 800 / 800 750 / 750
Balance -610 / -610 -90 / -90
Review of Systems
-
All other systems: Reviewed and negative
Physical Exam
-
General: Other (Appears sleepy and chronically ill)
Cardiac: S1/S2 and Other (Tachycardia)
GI: Soft and Nontender
Skin: Warm and Dry
Neuro: Awake, Oriented and No Motor Deficits
Psych: Other (Confused and sedated)
--- NOTE | 2024-03-26 14:07 | CM ---
Patient seen at bedside with physicians. Patient is on comfort care and hospice sees him daily but he is not currently on hospice. CM will call to patient to review options. CM will continue to follow for discharge planning needs.
Plan; comfort care.
[2024-03-26 23:30] VITALS: BP 147/91
--- NOTE | 2024-03-27 07:16 | W.PN.HOSP.TC ---
Addendum entered and electronically signed by Bev Washington MD 03/27/24 14:20:
I saw and evaluated the patient independently. I reviewed the resident�s note and agree with findings and plan as documented by Dr. Solis.
GENERAL: well developed, well nourished, chronically ill appearing male in no apparent distress--more talkative today, asking for a cup of tea
HEENT: NC/AT
HEART: regular rate and rhythm, +S1, +S2--+ tachycardic
LUNGS : clear to auscultation bilaterally
ABDOM: soft, nontender, nondistended, + bowel sounds
EXT: no cyanosis, clubbing, or edema
NEUROLOGIC: aphasia
altered mental status -- TME likely from DESTINEE/azotemia PLUS noted large acute stroke right MCA distribution and moderate acute infarct left parietal lobe--between both of these, hospice was consulted but pt does not meet GIP level of care, he has
been on comfort measures--he has stabilized (awake, eating, not using much pain meds if any) and does not qualify for continued hospital management--plan should be to transition out of the hospital to home hospice or SNF on hospice
DESTINEE on CKD stage 4 with hyperkalemia and metabolic acidosis-- pt declined dialysis in January--creat now rising--last check was 03/22 with BUN 112 and creat 6.4--still does not want HD and on comfort measures
acute hypoxemic resp insufficiency--likely due to combination of acute exacerbation of CHF (HFrEF), pleural effusion which was tapped and now not on O2 since on comfort measures
paroxysmal afib--does not appear to be on anticoagulation as outpt so therefore acute stroke likely due to this--again on comfort measures
essential HTN--meds stopped
type 2 DM -- meds stopped
BPH -- meds stopped
nutrition--on soft and bite sized diet, unclear if eating anything
code status -- DNR
await d/c plan
Original Note:
Today's Communication/Plan
-
Discuss with family, sample case porter about the final disposition of the patient either on home hospice or SNF hospice
Assessment / Plan
Assessment / Plan
IMPRESSION
Patient is a 78-year-old male with history of stage IV renal cancer s/p right nephrectomy, stage III prostate cancer s/p radiation therapy, history of previous mets in the lung which reportedly resolved- followed by [facility] Sims, 3 CVA currently not on
anticoagulation given history of recurrent falls, hypertension, hypercholesterolemia, diabetes type 2, hypothyroidism, BPH, CAD s/p cardiac stent presented with altered mental status and shortness of breath.
ASSESSMENT/PLAN
# Altered mental status most likely secondary to TME
03/16/24 CT head:No acute intracranial abnormalities,Old lacunar infarct again suggested in the right internal capsule.
03/18/24 Brain MRI: Large acute infarct in the right middle cerebral artery distribution.Moderate acute infarct in the left parietal lobe
Patient and altered mental status due to TME likely from DESTINEE/large acute stroke in right MCA distribution, patient has been on comfort measures, awake eating but not using much medications
Plan is to discuss with sample case porter about final disposition of the patient to either home hospice or SNF on hospice
# DESTINEE on CKD stage IV with hyperkalemia and metabolic acidosis
Patient advised dialysis by nephrology on outpatient basis since January,
Patient refused dialysis, admitted on March 16, 2024 with altered mental status
Potassium 5.4, serum creatinine 5
Signs and symptoms of volume overload
1 dose of IV Lasix 80 mg on the day of admission, 1 dose of 120 mg Lasix and 1 dose of Diuril 0.5 on March 18, additional dose of Lasix 80 mg per nephro on 03/19
Patient and family agreed to comfort care, and refused dialysis
Creatinine on March 22, 2024 is 6.4
Patient is on comfort measures since March 22, 2024 and is seen by hospice nurse but is not currently on hospice
# Acute hypoxic respiratory insufficiency,
Likely secondary to heart failure, pleural effusion and uremia.
CT chest:Moderate right pleural effusion with right lower lobe 'consolidation' with air bronchograms. Findings could represent atelectasis and/or pneumonia. Right lower lobe mass cannot be excluded.
Small left pleural effusion with accompanying left lower lobe subsegmental atelectasis.
Coronary artery calcifications,No pneumothorax.
s/p pleural tap 1250ml
Fluid [id number] Mononuclear Cell48.5Fl Polymorphonucl Cell51.5Fluid Other CellsNot ReportableFluid Fiixzrm05Lteht Total Protein2.8Fluid SQT376�Fluid Triglycerides< 30��
.
OTHER MEDICAL CONDITIONS
# HFrEF
# a fib
#tachycardia
-denies chest pain
# CAD
-s/p cardiac stenting
# Essential hypertension
-hold amlodipine 5 mg
-hold metoprolol;
-Hold lisinopril
# History of CVA; while on biologic for RCC
-unable to take ASA po and family refused tube; patient on comfort care
# Yhr-xjxftvo-jvstbjnla diabetes mellitus; on hold;
-hold home repaglinide(lower dose 1mg)
-hold home pioglitazone
# BPH
- family refused tube; d/c meds; on comfort care
#Chronic anemia
#Stage IV right renal cancer-s/p nephrectomy
#Stage III prostate cancer-status post radiation therapy
#Hypercholesterolemia-no po intake; no tube established, uses atorvastatin at home
#Hypothyroidism-
# Ambulatory dysfunction-uses a walker and electric scooter outside the home
Patient on comfort measures/hospice now.
03/26/24 14:07 - Case Management Note by Tran Madrid
Patient seen at bedside with physicians. Patient is on comfort care and hospice sees him daily but he is not currently on hospice. CM will call to patient to review options. CM will continue to follow for discharge planning needs.
Plan; comfort care.
code: DNR
Anticipated Discharge: 24 - 48 hours
Subjective/Interval History
-
Date of Service: March 27, 2024
Speaking today and reports no painl. As per the nurse patient has not been complaining much and does not require any medications
Objective Data
-
Vital Signs:
Vital Signs
Temp Pulse Resp BP Pulse Ox
97.7 F 160 16 147/91 97
03/26/24 23:30 03/26/24 23:30 03/26/24 23:30 03/26/24 23:30 03/26/24 23:30
I&O
03/26/24 03/27/24 03/28/24
06:59 06:59 06:59
Intake Total 660 / 660 340 / 340
Output Total 750 / 750 475 / 475
Balance -90 / -90 -135 / -135
Review of Systems
-
All other systems: Reviewed and negative
Physical Exam
-
General: Well Developed, No Apparent Distress and Other (Nonverbal due to aphasia)
HEENT: Anicteric, No Ptosis, PERRLA and Neck Non Tender
Respiratory: Clear to Auscultation and Other (No wheezes rhonchi or rales)
Cardiac: Regular Rhythm and S1/S2
GI: Soft, Nontender and Normal Bowel Sounds
Musculoskeletal: No Clubbing, No Cyanosis and No Edema
Skin: Warm and Dry
Neuro: Awake, Oriented and Other (clear speech)
Psych: Calm
[2024-03-27 07:48] VITALS: BP 140/61
--- NOTE | 2024-03-27 12:11 | HOSPNOTE ---
Addendum entered by Geri Mckeon RN 03/27/24 12:54:
Patient was turned and repositioned and became extremely agitated and required IV ativan and then started complaining of pain of was medicated with IV morphine. The patient is having a difficult time relaxing even after medication administration.
Asked the nurse to re assess in 30 minutes. The patient may need medication prior to care and repositioning. Will continue to follow, if the patient does not require inpatient level of care for hospice will need to seek placement or home with aide
services with hospice services.
Original Note:
Will discuss with family if home hospice is not an option will ask CM to place referrals to a SNF with hospice services. More information to follow.
[2024-03-27] MEDS: ATIVAN 0.5 MG PO (13:04)
[2024-03-27] MEDS: MORPHINE SULFATE 1 MG IV ×4 (13:04→20:18)
--- NOTE | 2024-03-27 13:34 | PTCARENOTE ---
Addendum entered by Paulina Tran RN 03/27/24 19:36:
family members at bedside this afternoon asking to speak with MD. MD and resident made aware. family members upset about pt not getting prns more frequently. this nurse explained the nonverbal and verbal pain assessments that we follow per protocol
and that patient has received three doses this shift. this nurse also educated on the importance of not overmedicating patients. this nurse spoke to MD, resident and case packer and sealer at length about goals of care for this patient. orders adjusted, fraser
catheter removed due to causing pain for patient who is currently having minimal urinary output with very small amounts of oral intake at this time. this nurse assessed pt at 1809 post 1hr pain medication administration. pt is comfortable and not
showing an physical or nonverbal cues of distress or dyspnea. this nurse also assessed pt after change of shift report and patient was dry, comfortable and sleeping at this time. change of shift assessment occurred at 1925. Nightshift aware of plan
of care for patient.
Original Note:
prn medications given per protocol to this patient. see mar for proper documentation.
--- NOTE | 2024-03-27 17:17 | CM ---
Family meeting with patient , physicians and daughter. Discussed concerns and plan to change to hospice for meeting tomorrow am with hospice nurse. Patient was awake and talking this am when visited this afternoon family reported that patient
was complaining of pain. Nursing staff aware. CM will continue to follow for discharge planning needs. CM will continue to follow for discharge planning needs.
Plan; hospice vs comfort care.
--- NOTE | 2024-03-27 17:32 | W.PN.UPDATE ---
Update Note
Progress Note Update
Had approximately hour long conversation with Myah and daughter Dayan at the bedside along with case management and primary resident taking care of the patient. Family is upset because they feel that he is being ignored. They 'were told'
that patient was already on hospice, despite my insistence that he was on comfort measures and not on hospice. They 'were told' by Dr. Ivy that he would be medicated [id number], despite my indicating that he is on as needed medications and
not standing [id number] meds. They feel 'lied to' in this regard. Daughter started raising her voice and screaming, to which I replied, 'if you do not stop screaming at me I will leave the room.'
Tried to explain that he is evaluated hourly since the as needed medications are every hour as needed; they state that they have been at his bedside for 3 to 4 hours without anybody coming in to assess him. They feel that when they arrive at the
bedside, he states that he is in pain, he is moaning despite the fact that we explained to both of them that when we saw him this morning and asked him if he was in pain he said no. He then asked for a cup of tea. Daughter and states that he
is not reliable, has never liked tea nor ever drank that in his life. He stated that his penis is sore and that he wants a new one. 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
They also were told that they could not feed him. I explained that that is not true, that comfort feeds are ordered. Nursing just did not want him being fed if he were lethargic or unarousable but they indicated that they were told he could choke.
We spoke about alternative places for treatment. They cannot take the patient home as no one is there 01/11 to care for him. They did not wish to pay [id number] for room and board for hospice at a facility. I also explained that even on hospice
that still may be the decision if he stabilizes and is able to leave the hospital.
I called Geri Mckeon from the patient's room, she will be at the bedside at 9 AM to meet with the family to sign paperwork for inpatient hospice as his IV morphine and Ativan requirements have increased throughout the day.
By the end of the meeting, family seemed agreeable with this plan. Daughter apologized profusely for raising her voice.
[2024-03-27 19:06] VITALS: BP 124/66
[2024-03-28] MEDS: MORPHINE SULFATE 1 MG IV ×2 (00:03→04:27)
--- NOTE | 2024-03-28 06:36 | W.PN.HOSP.TC ---
Addendum entered and electronically signed by Bev Washington MD 03/28/24 13:17:
I saw and evaluated the patient independently. I reviewed the resident�s note and agree with findings and plan as documented by Dr. Solis.
GENERAL: well developed, well nourished, chronically ill appearing male in no apparent distress--more talkative, asking for a cup of tea
HEENT: NC/AT
HEART: regular rate and rhythm, +S1, +S2--+ tachycardic
LUNGS : clear to auscultation bilaterally
ABDOM: soft, nontender, nondistended, + bowel sounds
EXT: no cyanosis, clubbing, or edema
NEUROLOGIC: aphasia
see update note from myself re: family meeting
altered mental status -- TME likely from DESTINEE/azotemia PLUS noted large acute stroke right MCA distribution and moderate acute infarct left parietal lobe--between both of these, hospice was consulted but pt did not meet GIP level of care, he has been
on comfort measures--he has stabilized (awake, eating, not using much pain meds if any) and did not qualify for continued hospital management--plan should have been to transition out of the hospital to home hospice or SNF on hospice
DESTINEE on CKD stage 4 with hyperkalemia and metabolic acidosis-- pt declined dialysis in January--creat now rising--last check was 03/22 with BUN 112 and creat 6.4--still does not want HD and on comfort measures
acute hypoxemic resp insufficiency--likely due to combination of acute exacerbation of CHF (HFrEF), pleural effusion which was tapped and now not on O2 since on comfort measures
paroxysmal afib--does not appear to be on anticoagulation as outpt so therefore acute stroke likely due to this--again on comfort measures
essential HTN--meds stopped
type 2 DM -- meds stopped
BPH -- meds stopped
nutrition--on soft and bite sized diet, unclear if eating anything
code status -- DNR
transitioning pt to inpt hospice
Original Note:
Today's Communication/Plan
-
Shift the patient to hospice
Hospice nurse Geri Mckeon to assess the patient for inpatient hospice
Assessment / Plan
Assessment / Plan
IMPRESSION
Patient is a 78-year-old male with history of stage IV renal cancer s/p right nephrectomy, stage III prostate cancer s/p radiation therapy, history of previous mets in the lung which reportedly resolved- followed by [facility], paroxysmal atrial
fibrillation, 3 CVA currently not on anticoagulation given history of recurrent falls, hypertension, hypercholesterolemia, diabetes type 2, hypothyroidism, BPH, CAD s/p cardiac stent presented with altered mental status and shortness of breath.
Patient has been on comfort measures since March 22, 2024
Based on discussion with family, plan to transition to hospice on March 28, 2024
ASSESSMENT/PLAN
# Altered mental status most likely secondary to TME
03/16/24 CT head:No acute intracranial abnormalities,Old lacunar infarct again suggested in the right internal capsule.
03/18/24 Brain MRI: Large acute infarct in the right middle cerebral artery distribution.Moderate acute infarct in the left parietal lobe
Patient and altered mental status due to TME likely from DESTINEE/large acute stroke in right MCA distribution, patient has been on comfort measures, awake eating but not using much medications
Hospice nurse Geri Mckeon will be meeting the family at 9 AM to sign paperwork for inpatient hospice as per discussion with the family in presence of the piano case and bench assembler yesterday
As of today, 03/28/2024 patient will be on hospice
# DESTINEE on CKD stage IV with hyperkalemia and metabolic acidosis
Patient advised dialysis by nephrology on outpatient basis since January,
Patient refused dialysis, admitted on March 16, 2024 with altered mental status,Potassium 5.4, serum creatinine 5 and signs and symptoms of volume overload
1 dose of IV Lasix 80 mg on the day of admission, 1 dose of 120 mg Lasix and 1 dose of Diuril 0.5 on March 18, additional dose of Lasix 80 mg per nephro on 03/19
Patient and family agreed to comfort care, and refused dialysis, since given his massive stroke in right MCA, his quality of life would not have improved
Creatinine on March 22, 2024 is 6.4
Patient is on comfort measures since March 22, 2024 and is seen by hospice nurse but is not currently on hospice
Patient's family is going to sign hospice paperwork on March 28, 2024 to put the patient on hospice officially
# Acute hypoxic respiratory insufficiency,
Likely secondary to heart failure, pleural effusion and uremia.
CT chest:Moderate right pleural effusion with right lower lobe 'consolidation' with air bronchograms. Findings could represent atelectasis and/or pneumonia. Right lower lobe mass cannot be excluded.
Small left pleural effusion with accompanying left lower lobe subsegmental atelectasis.
Coronary artery calcifications,No pneumothorax.
s/p pleural tap 1250ml
Fluid [id number] Mononuclear Cell48.5Fl Polymorphonucl Cell51.5Fluid Other CellsNot ReportableFluid [id number] Total Protein2.8Fluid OMP726�Fluid Triglycerides< 30��
.
OTHER MEDICAL CONDITIONS
# HFrEF
# Paroxysmal a fib
#tachycardia
# CAD
-s/p cardiac stenting
# Essential hypertension
-hold amlodipine 5 mg
-hold metoprolol;
-Hold lisinopril
# History of CVA; while on biologic for RCC
-unable to take ASA po and family refused tube; patient on comfort care
# Hgl-xpgxjmf-emsbspzqa diabetes mellitus; on hold;
-hold home repaglinide(lower dose 1mg)
-hold home pioglitazone
# BPH
- family refused tube; d/c meds; on comfort care
#Chronic anemia
#Stage IV right renal cancer-s/p nephrectomy
#Stage III prostate cancer-status post radiation therapy
#Hypercholesterolemia-no po intake; no tube established, uses atorvastatin at home
#Hypothyroidism-
# Ambulatory dysfunction-uses a walker and electric scooter outside the home
Patient on comfort measures/hospice now.
03/27/24 17:17 - Case Management Note by Tran Madrid
Family meeting with patient , physicians and daughter. Discussed concerns and plan to change to hospice for meeting tomorrow am with hospice nurse. Patient was awake and talking this am when visited this afternoon family reported that patient
was complaining of pain. Nursing staff aware. CM will continue to follow for discharge planning needs. CM will continue to follow for discharge planning needs.
Plan; shift to hospice today, 03/28/2024
code: DNR
Anticipated Discharge: 24 - 48 hours
Subjective/Interval History
-
Date of Service: March 28, 2024
Patient's condition is static. No active issues,denied any pain and asked for a cup of coffee
Objective Data
-
Vital Signs:
Vital Signs
Temp Pulse Resp BP Pulse Ox
98.2 F 163 18 124/66 97
03/27/24 19:06 03/27/24 19:06 03/27/24 19:06 03/27/24 19:06 03/28/24 00:33
I&O
03/26/24 03/27/24 03/28/24
06:59 06:59 06:59
Intake Total 660 / 660 340 / 340 240 / 240
Output Total 750 / 750 475 / 475 275 / 275
Balance -90 / -90 -135 / -135 -35 / -35
Review of Systems
-
All other systems: Reviewed and negative
Physical Exam
-
General: Well Developed, No Apparent Distress and Other (Patient speaking clearly today)
HEENT: Normocephalic and Atraumatic
Respiratory: Clear to Auscultation and Other (No wheezes rhonchi or rales)
Cardiac: Regular Rhythm, S1/S2 and Tachycardic (Heart rate 163)
GI: Soft, Nontender, Nondistended and Normal Bowel Sounds
Musculoskeletal: No Clubbing, No Cyanosis and No Edema
Skin: Warm and Dry
Neuro: Sedated
[2024-03-28 07:00] VITALS: BP 110/68
[2024-03-28] MEDS: ATIVAN 0.5 MG IV (09:54)
--- NOTE | 2024-03-28 12:39 | CM ---
Patient transferred to Hospice. CM will continue to follow for discharge planning needs.
Plan;changed to hospice.
--- NOTE | 2024-03-28 13:09 | W.DCSUMMARY ---
Addendum entered and electronically signed by Bev Washington MD 03/28/24 15:38:
Read, reviewed, and agree. See same day progress note for additional details. Time spent coordinating care, DC planning, review of DC plan of care with resident, transition of care, review of records in EMR, med rec, consults, notes, d/w
consultants, nursing, family, and CM = 38 minutes
Original Note:
Discharge Summary
Discharge Data
Date of Admission: 03/16/24
Date of Discharge: 03/28/24
-
Pending Results: No
Hospital Course
Patient is a 78-year-old male with history of stage IV renal cancer s/p right nephrectomy, stage III prostate cancer s/p radiation therapy, history of previous mets in the lung which reportedly resolved- followed by [facility] Sims, 3 CVA currently not on
anticoagulation given history of recurrent falls, hypertension, hypercholesterolemia, diabetes type 2, hypothyroidism, BPH, CAD s/p cardiac stent who was admitted with altered mental status on March 16, 2024 with intermittent confusion and
elevated heart rate. In addition he also had a fall out of bed, but he fell on his right shoulder and did not hit his head.
His workup showed sinus rhythm with PACs and tachycardia, his CT head showed old lacunar infarct in the right internal capsule and CT chest showed consolidation of right lower lobe with air bronchograms atelectasis/pneumonia and mass cannot be
excluded. Cardiology evaluated the tachycardia and diagnosed it to be paroxysmal SVT/flutter and started heparin after consent from family and high risk situation was explained as the patient had an intracranial bleed.Nephrology assessed the
patient for deranged RFT's with a serum creatinine of 5.2 and serum potassium of 5, multiple doses of Lasix were tried with no significant improvement and the potential for hemodialysis was discussed with the family which was refused by the patient
and family.
On March 18, 2024 an MRI of the brain was done that showed disastrous bihemispheric acute ischemic stroke most likely secondary to patient's atrial fibrillation.. At the same time patient's kidney function continued to deteriorate with a
potassium of 5.6. It was communicated to the patient and his family that due to the significant stroke event, poor prognosis of neurological recovery and organ dysfunction in the form of acute kidney injury on chronic steady stage IV and
hemodialysis refusal based on his wishes as well as new cardiomyopathy with ejection fraction of 30% and atrial fibrillation they should review the patient's goals of care.
Family decided to opt for comfort measures. As of March 21, 2024 family had a meeting with hospice and they all agreed to put the patient on comfort care with medication and discussed about role of comfort medication. Patient was on comfort
measures still March 27, 2024 but then his Myah and daughter Dayan at bedside along with the case coordinator and the resident decided that they were not happy with the comfort measures and would like to address the patient's pain more
aggressively. After an extensive conversation with the family they agreed to put the patient on inpatient hospice since no one was available at home to take care of him 01/11 and they could not pay for hospice at the facility.
On March 28, 2024 they had a meeting with Geri Mckeon the hospice nurse and he signed the paperwork for inpatient hospice and would be transferred to [facility] inpatient hospice.
Discharge Plan
-
Patient Disposition: Hospice - Inpatient DH
Discharge Orders:
Discharge Patient (As Directed); Ordered 03/28/24
Ordered By: Dallin Solis
Discharge Date and Time
Discharge Date/Time: 03/28/24 10:35
Print Language: NORWEGIAN
== END 2024-03-28 10:35 | disposition hospice, inpatient (51) | DRG 64 ==
LOC: 2 NORTH 16:53
PROVIDERS: Emergency Medicine; Internal Medicine; Internal Medicine Cardiovascular Disease; Nurse Practitioner Family; Radiology Diagnostic Radiology; Specialist; ADMITTING PHYSICIAN Hospitalist; ATTENDING PHYSICIAN Internal Medicine; CONSULT PHYSICIAN Internal Medicine; CONSULT PHYSICIAN Psychiatry & Neurology Neurology; EMERGENCY PHYSICIAN Student in an Organized Health Care Education/Training Program; FAMILY PHYSICIAN Student in an Organized Health Care Education/Training Program
PROC: 0W993ZZ Drainage of Right Pleural Cavity, Percutaneous Approach (ICD-10-PCS; 2024-03-17)
DX: I63.89 Other cerebral infarction (principal); G92.8 Other toxic encephalopathy; I21.A1 Myocardial infarction type 2; I50.21 Acute systolic (congestive) heart failure; Z66 Do not resuscitate; Z51.5 Encounter for palliative care; N17.9 Acute kidney failure, unspecified; N18.4 Chronic kidney disease, stage 4 (severe); E87.20 Acidosis, unspecified; J91.8 Pleural effusion in other conditions classified elsewhere; G81.94 Hemiplegia, unspecified affecting left nondominant side; I47.19 Other supraventricular tachycardia; I42.9 Cardiomyopathy, unspecified; I48.3 Typical atrial flutter; I48.0 Paroxysmal atrial fibrillation; I25.10 Atherosclerotic heart disease of native coronary artery without angina pectoris; E03.9 Hypothyroidism, unspecified; D63.1 Anemia in chronic kidney disease; E87.5 Hyperkalemia; E78.00 Pure hypercholesterolemia, unspecified; I08.1 Rheumatic disorders of both mitral and tricuspid valves; R09.02 Hypoxemia; R06.89 Other abnormalities of breathing; I12.9 Hypertensive chronic kidney disease with stage 1 through stage 4 chronic kidney disease, or unspecified chronic kidney disease; N40.0 Benign prostatic hyperplasia without lower urinary tract symptoms; R47.1 Dysarthria and anarthria; E11.22 Type 2 diabetes mellitus with diabetic chronic kidney disease; Z11.52 Encounter for screening for COVID-19; Z95.5 Presence of coronary angioplasty implant and graft; Z92.3 Personal history of irradiation; Z92.21 Personal history of antineoplastic chemotherapy; Z90.5 Acquired absence of kidney; Z87.891 Personal history of nicotine dependence; Z86.73 Personal history of transient ischemic attack (TIA), and cerebral infarction without residual deficits; Z85.528 Personal history of other malignant neoplasm of kidney; Z85.46 Personal history of malignant neoplasm of prostate; Z79.899 Other long term (current) drug therapy; Z79.890 Hormone replacement therapy; Z79.82 Long term (current) use of aspirin; Z79.84 Long term (current) use of oral hypoglycemic drugs
CPT/HCPCS: 88305; 93308; 32555; 36600; 70450; 70551; 71045; 71250; 76770; 78582; 80048; 80053; 81003; 81015; 82140; 82805; 82945; 82962; 83036; 83615; 83735; 83880; 83986; 84157; 84300; 84478; 84484; 85025; 85027; 85730; 87015; 87070; 87086; 87205; 87502; 87811; 88112; 89051; 92526; 92610; 93005; 93321; 93325; 93880; 94640; 99291; A9540; A9567; J1205

== ENCOUNTER 2024-03-28 10:35 | Inpatient (IN) | payer OTHER, SELFPAY ==
--- NOTE | 2024-03-28 10:43 | PTCARENOTE ---
Pt transitioned to IP hospice, see flipped chart. Pt resting comfortably in bed at this time with family member at bedside. Education provided by hospice and this RN to family member. Pt presenting with no new needs at this time.
[2024-03-28 11:03] VITALS: BP 110/68
[2024-03-28] MEDS: MORPHINE SULFATE 1 MG IV ×3 (11:39→20:40)
--- NOTE | 2024-03-28 11:48 | HOSPNOTE ---
Patient transitioned to inpatient hospice. I explained to the spouse that the patient would be medicated as needed and all his needs would be met. The spouse is under the impression that no one checks on the patient and assesses his pain and
anxiety. I assured her that the nurses absolutely do a thorough assessment and will manage any pain or anxiety. The spouse said the patient does not answer questions appropriately and will say no for yes. I told the spouse we do different scales to
determine pain and anxiety and we do not take what the patient says only we have other ways to determine pain. The catheter was removed since it was causing pain to patient per spouse. Consents were signed for inpatient hospice. CM and Attending
aware and updated. We will see patient daily.
[2024-03-28] MEDS: ATIVAN 2 MG IV (13:38)
--- NOTE | 2024-03-28 15:08 | ADM.HSP ---
Addendum entered and electronically signed by Bev Washington MD 03/28/24 15:44:
I personally performed a history and physical exam of the patient and discussed management with the resident. I reviewed the resident's note and agree with the documented findings and plan of care HPI/CC.
GENERAL: well developed, well nourished, male in no apparent distress
HEENT: NC/AT
HEART: regular rate and rhythm, +S1, +S2--tachycardic
LUNGS : clear to auscultation bilaterally
ABDOM: soft, nontender, nondistended, + bowel sounds
EXT: no cyanosis, clubbing, or edema
NEUROLOGIC: twitchy this AM--wants cup of tea again
: fraser cath removed
worsening acute renal failure (azotemia) on CKD stage 4 with metabolic acidosis/large bilateral CVA/failed swallowing eval--pt was on comfort measures for 11 days but now qualifies for inpt hospice due to increased need for medications--fraser
removed due to causing pain to patient
OTHER MEDICAL ISSUES: all meds stopped
paroxysmal afib
essential HTN
type 2 DM
BPH
nutrition--on soft and bite sized diet, unclear if eating anything
code status -- DNR
transitioning pt to inpt hospice
Original Note:
Admission - Hospice
History of Present Illness
Patient is a 78-year-old male with history of stage IV renal cancer s/p right nephrectomy, stage III prostate cancer s/p radiation therapy, history of previous mets in the lung which reportedly resolved- followed by [facility]s, 3 CVA currently not on
anticoagulation given history of recurrent falls, hypertension, hypercholesterolemia, diabetes type 2, hypothyroidism, BPH, CAD s/p cardiac stent who was admitted with altered mental status on March 16, 2024 with intermittent confusion and
elevated heart rate. In addition he also had a fall out of bed, but he fell on his right shoulder and did not hit his head.
His workup showed sinus rhythm with PACs and tachycardia, his CT head showed old lacunar infarct in the right internal capsule and CT chest showed consolidation of right lower lobe with air bronchograms atelectasis/pneumonia and mass cannot be
excluded. Cardiology evaluated the tachycardia and diagnosed it to be paroxysmal SVT/flutter and started heparin after consent from family and high risk situation was explained as the patient had an intracranial bleed.Nephrology assessed the
patient for deranged RFT's with a serum creatinine of 5.2 and serum potassium of 5, multiple doses of Lasix were tried with no significant improvement and the potential for hemodialysis was discussed with the family which was refused by the patient
and family.
On March 18, 2024 an MRI of the brain was done that showed disastrous bihemispheric acute ischemic stroke most likely secondary to patient's atrial fibrillation.. At the same time patient's kidney function continued to deteriorate with a
potassium of 5.6. It was communicated to the patient and his family that due to the significant stroke event, poor prognosis of neurological recovery and organ dysfunction in the form of acute kidney injury on chronic steady stage IV and
hemodialysis refusal based on his wishes as well as new cardiomyopathy with ejection fraction of 30% and atrial fibrillation they should review the patient's goals of care.
Family decided to opt for comfort measures. As of March 21, 2024 family had a meeting with hospice and they all agreed to put the patient on comfort care with medication and discussed about role of comfort medication. Patient was on comfort
measures still March 27, 2024 but then his Myah and daughter Dayan at bedside along with the sample case porter and the resident decided that they were not happy with the comfort measures and would like to address the patient's pain more
aggressively. After an extensive conversation with the family they agreed to put the patient on inpatient hospice since no one was available at home to take care of him 01/11 and they could not pay for hospice at the facility.
On March 28, 2024 they had a meeting with Geri Mckeon the hospice nurse and he signed the paperwork for inpatient hospice and would be transferred to [facility] inpatient hospice.
Reason for Hospice Admission
Worsening DESTINEE
Large bilateral CVA
Failed speech evaluation
Review of Systems
Unable to obtain full review of systems at this time due to: Other (Unreliable due to TME)
Physical Exam
Temp Pulse Resp BP Pulse Ox
98.4 F 160 10 110/68 94
03/28/24 11:03 03/28/24 11:03 03/28/24 11:03 03/28/24 11:03 03/28/24 11:04
General: No Apparent Distress, Conversant and Appears Chronically Ill
Respiratory: Clear to Auscultation
Cardiology: Regular Rhythm, S1/S2 and Tachycardia
GI: Soft, Nontender and Normal Bowel Sounds
Musculoskeletal: No Clubbing and No Cyanosis
Skin: Warm and Dry
Psych: Confused
Assessment/Medication Plan
Generic Name Dose Route Start Last Admin
Trade Name Freq PRN Reason Stop Dose Admin
Acetaminophen 650 mg 03/28/24 09:52
Acetaminophen 650 Mg Rectal Suppository RECTAL 04/25/24 09:51
Q4HPRN PRN
mild pain, ELLISON, or temp >100.4F
Al Hydrox/Mg Hydrox/Simethicone 30 ml 03/28/24 09:52
Mag/Al/Simethicone Suspension 30 Ml Cup PO 04/25/24 09:51
Q6HPRN PRN
heartburn
Bisacodyl 10 mg 03/28/24 09:52
Bisacodyl 10 Mg Rectal Suppository RECTAL 04/25/24 09:51
DAILYPRN PRN
if no BM for 3 days
Glycopyrrolate 0.2 mg 03/28/24 09:52
Glycopyrrolate 0.2 Mg/Ml Vial IV 04/25/24 09:51
Q4HPRN PRN
excessive secretions
Morphine Sulfate/Sodium Chloride 100 mg in 100 mls @ 0 mls/hr 03/28/24 10:00
Morphine IV
PER PROTOCOL KORINA
Protocol
Per Protocol
Lorazepam 2 mg 03/28/24 09:52 03/28/24 13:38
Lorazepam 2 Mg/Ml Vial IV 04/25/24 09:51 2 mg
Q1HPRN PRN Administration
seizure
Protocol
Morphine Sulfate 0 mg 03/28/24 09:52
Morphine 2 Mg/Ml Syringe IV 04/11/24 09:51
B30AHAR PRN
moderate-severe pain / dyspnea
Protocol
Morphine Sulfate 1 mg 03/28/24 10:56 03/28/24 13:37
Morphine 2 Mg/Ml Syringe IV 04/11/24 10:59 1 mg
Q1 PRN Administration
terminal agitation
Ondansetron HCl 4 mg 03/28/24 09:52
Ondansetron 4 Mg/2 Ml Vial IV 04/25/24 09:51
Q6HPRN PRN
nausea/vomiting
Pharmacy Profile Note 0 unit 03/28/24 10:[address] 1 Unit IV 04/25/24 09:59
DIRECTED KORINA
[2024-03-28 21:13] VITALS: BP 102/70
[2024-03-29] MEDS: ROBINUL 0.2 MG IV ×2 (02:23→15:51)
[2024-03-29] MEDS: MORPHINE SULFATE 1 MG IV ×5 (02:23→12:00)
[2024-03-29 07:03] VITALS: BP 89/62
--- NOTE | 2024-03-29 07:04 | W.PN.HOSP.TC ---
Addendum entered and electronically signed by Bev Washington MD 03/29/24 12:08:
I saw and evaluated the patient independently. I reviewed the resident�s note and agree with findings and plan as documented by Dr. Solis.
GENERAL: well developed, well nourished, male in no apparent distress--sleepy
HEENT: NC/AT
HEART: regular rate and rhythm, +S1, +S2--tachycardic
LUNGS : clear to auscultation bilaterally
ABDOM: soft, nontender, nondistended, + bowel sounds
EXT: no cyanosis, clubbing, or edema
NEUROLOGIC: twitchy this AM
: fraser cath removed
worsening acute renal failure (azotemia) on CKD stage 4 with metabolic acidosis/large bilateral CVA/failed swallowing eval--pt was on comfort measures for 11 days but now qualified for inpt hospice due to increased need for medications--fraser
removed due to causing pain to patient--may need morphine drip
today is his birthday....
OTHER MEDICAL ISSUES: all meds stopped
paroxysmal afib
essential HTN
type 2 DM
BPH
nutrition--on soft and bite sized diet, unclear if eating anything
code status -- DNR
Original Note:
Today's Communication/Plan
-
Continue to keep patient comfortable on hospice
Assessment / Plan
Assessment / Plan
Impression
Patient had worsening acute renal failure/azotemia along with end-stage renal disease/metabolic acidosis, large bilateral CVA, failed swallowing evaluation, remained on comfort measures for 11 days, eventually family agreed to put the patient
hospice.
Patient is receiving as needed medications for pain and agitation
All other medications for his medical conditions stopped
Assessment/plan
On hospice secondary to end-stage renal disease/metabolic acidosis
Bilateral large CVAs
Failed swallowing evaluation
Can progress to morphine infusion if needed as per protocol
Other medical conditions
Paroxysmal A-fib
Essential hypertension
Type 2 diabetes mellitus
BPH
Unclear status of nutrition
All medications stopped except pain meds
CODE STATUS-DNR
Anticipated Discharge: 24 - 48 hours
Subjective/Interval History
-
Date of Service: March 29, 2024
No active issues
Objective Data
-
Vital Signs:
Vital Signs
Temp Pulse Resp BP Pulse Ox
98.8 F 158 12 102/70 99
03/28/24 21:13 03/28/24 21:13 03/28/24 21:13 03/28/24 21:13 03/28/24 21:13
I&O
03/28/24 03/29/24 03/30/24
06:59 06:59 06:59
Intake Total 0 / 0
Balance 0 / 0
Review of Systems
-
Unable to obtain full review of systems at this time due to: Other (Patient not able to communicate )
Physical Exam
-
General: Well Developed, Well Nourished and Appears Chronically Ill
HEENT: Normocephalic and Atraumatic
Respiratory: Clear to Auscultation and Other (No wheezes rhonchi)
Cardiac: Regular Rhythm and S1/S2
GI: Soft, Nontender, Nondistended and Normal Bowel Sounds
Musculoskeletal: No Clubbing, No Cyanosis and No Edema
Skin: Warm and Dry
Neuro: Other (Fluctuating level of response)
Psych: Calm
--- NOTE | 2024-03-29 10:15 | HOSPNOTE ---
Pt unresponsive, restless with some fidgeting and myoclonus. Pt tachycardic with mild secretions, apnea observed lasting 20 seconds. Faint pedal pulse. Pt has received 6 doses of PRN morphine past 24 hours, 1 dose of prn Ativan, recommend morphine
drip for pt comfort during end of life. Discussion occurred with floor nurse Paulina requested dose of morphine and ativan when available. Last dose given 09. Discussed morphine drip. Pt remains appropriate for GIP level of care for frequent
nursing assessment and pain/comfort mgt with IV medication.
[2024-03-29] MEDS: ATIVAN 2 MG IV ×3 (10:43→15:52)
--- NOTE | 2024-03-29 11:15 | CM ---
Reviewed the chart notes. CM continues to be available to patient/family.
Plan: [facility].
[2024-03-29] MEDS: MORPHINE 100 IV (13:02)
--- NOTE | 2024-03-29 14:22 | PTCARENOTE ---
pt started on a step 1 morphine gtt at 1300. going through patient R AC. pt also received prn athelen and joao with this nurse. nurse explained the gtt protocol to at bedside and how the breakthrough doses work as needed. see MAR for proper
documentation
[2024-03-29] MEDS: MORPHINE SULFATE 2 MG IV (15:51)
--- NOTE | 2024-03-29 16:33 | W.PN.DEATH ---
Pronouncement of
-
Called to see patient to pronounce.
No spontaneous heart tones or respirations noted.
Patient not responsive to verbal stimuli.
Patient is pronounced .
Time of : 16:15
Date of : 03/29/24
Cause of : Acute renal failure on chronic kidney disease stage IV
Family Notified: Yes (Informed spouse over the phone. )
== END 2024-03-29 16:15 | disposition expired | DRG 951 ==
LOC: 2 NORTH 10:35
PROVIDERS: ADMITTING PHYSICIAN Internal Medicine
DX: Z51.5 Encounter for palliative care (principal); N18.6 End stage renal disease; I63.9 Cerebral infarction, unspecified; N17.9 Acute kidney failure, unspecified; E87.20 Acidosis, unspecified; I12.0 Hypertensive chronic kidney disease with stage 5 chronic kidney disease or end stage renal disease; I42.9 Cardiomyopathy, unspecified; Z66 Do not resuscitate; E03.9 Hypothyroidism, unspecified; E11.22 Type 2 diabetes mellitus with diabetic chronic kidney disease; E78.00 Pure hypercholesterolemia, unspecified; I25.10 Atherosclerotic heart disease of native coronary artery without angina pectoris; I48.0 Paroxysmal atrial fibrillation; N40.0 Benign prostatic hyperplasia without lower urinary tract symptoms; Z85.46 Personal history of malignant neoplasm of prostate; Z85.528 Personal history of other malignant neoplasm of kidney; Z92.3 Personal history of irradiation; Z95.5 Presence of coronary angioplasty implant and graft; Z90.5 Acquired absence of kidney; Z86.73 Personal history of transient ischemic attack (TIA), and cerebral infarction without residual deficits